=== PATIENT | female | born 1950 | race Caucasian/White ===

== ENCOUNTER 2017-10-30 14:29 | Emergency (ER) | payer MEDICARE, OTHER, SELFPAY | END 2017-10-30 16:00 | disposition home or self-care (01) | PROVIDERS: Emergency Provider Emergency Medicine; Family Provider Emergency Medicine; Visit Provider Emergency Medicine | DX: S39.012A Strain of muscle, fascia and tendon of lower back, initial encounter (principal); W19.XXXA Unspecified fall, initial encounter; Y93.9 Activity, unspecified; Y92.9 Unspecified place or not applicable; Z98.1 Arthrodesis status; M79.7 Fibromyalgia; I10 Essential (primary) hypertension; E78.5 Hyperlipidemia, unspecified; Z79.891 Long term (current) use of opiate analgesic; Z79.899 Other long term (current) drug therapy | CPT/HCPCS: 72110; 99282 ==

== ENCOUNTER 2017-11-01 10:51 | Outpatient (POV) | payer MEDICARE, OTHER, SELFPAY | END 2017-11-01 13:46 | disposition home or self-care (01) | PROVIDERS: Visit Provider Podiatrist | DX: M20.42 Other hammer toe(s) (acquired), left foot (principal); M20.12 Hallux valgus (acquired), left foot; L84 Corns and callosities; M79.675 Pain in left toe(s); M79.674 Pain in right toe(s) | CPT/HCPCS: 11056; 99213 ==

== ENCOUNTER → 2017-12-27 14:35 | Outpatient (CLI) | payer MEDICARE, OTHER, SELFPAY ==
--- NOTE | 2017-12-27 14:45 | XR_ITS ---
XR foot RT min 3V HISTORY: ] Pain, prior foot surgery ITS.REASON: RIGHT FOOT PAIN ORDERING PHYSICIAN: Lisa Mcmahon DPM PATIENT AGE: 67 years COMPARISON: 03/18/2016 FINDINGS: Weightbearing views are obtained. There is been prior fusion of the first metatarsophalangeal joint with a screw present over the distal aspect of the first metatarsal. A small cerclage wire is over the proximal aspect of the proximal phalanx. Hypertrophic changes are present at the first metatarsophalangeal joint and the first interphalangeal joint. Subcortical periarticular cystic changes present at the first interphalangeal joint and has developed in the interval. Hypertrophic changes are also present at the base of the proximal phalanx of digits 3 and 4. Osteoarthritic changes are present at the metatarsal tarsal junction. There is normal alignment. No acute fracture or dislocation evident. Small calcaneal spur noted at 5 mm. Osteoarthritic change third and fourth PIPs . Flexion deformity involves the second through fourth toes. IMPRESSION: Postsurgical changes as described above involving the great toe with prior fusion of the first MTP joint and bony hypertrophic change. Subarticular cystic change now involves the interphalangeal joint of the great toe Hammertoe deformity with degenerative changes
== END ==
PROVIDERS: PCP Physician Assistant; Visit Provider Podiatrist
DX: M79.671 Pain in right foot (principal)
CPT/HCPCS: 73630

== ENCOUNTER 2018-01-25 15:16 | Emergency (ER) | payer MEDICARE, OTHER, SELFPAY ==
[2018-01-25 15:36] VITALS: BP 141/73; PULSE 91; RESP 18; TEMP 36.8; O2SAT 99; BMI 27.2
--- NOTE | 2018-01-25 15:44 | HMH.EDUTC ---
[facility] [place] Disposition Clinical Impression: UTI (urinary tract infection) Qualifiers: Urinary tract infection type: site unspecified Hematuria presence: with hematuria Qualified Code(s): N39.0 - Urinary tract infection, site not specified; R31.9 - Hematuria, unspecified Disposition: Home, Self-Care Condition on Discharge: Good Instructions: Urinary Tract Infection Additional Instructions: *Increase fluids. Water not Soda or Tea *Start antibiotic immediately and be sure to take as ordered for the FULL length of time although you should start to see improvement over the next 48 hours *Pyridium as needed Remember this medication will turn your urine [place]. This is normal but it will stain what ever it gets on *You should not use Pyridium for more than 48 hours. If so , follow up with your primary physician to review urine culture and ensure that antibiotic is adequate for infection *Be SURE to follow up anytime for new or worsening symptoms. AND in 48 hours for urine culture results AND in 10-14 days to repeat UA to ensure infection is resolved and blood no longer present *Be sure to let your PCP know that we sent urine cultures from the [facility] so they can follow up to ensure that you area the on the correct antibiotic Follow up with family doctor in 12-48 hours if no improvement or worsening of symptoms. To the ER if you began having any confusion, fever, chills or any other signs of worsening infection Prescriptions: Phenazopyridine HCl [Pyridium] 200 mg PO TID #6 tab Sulfamethoxazole/Trimethoprim [Bactrim DS tablet] 1 each PO BID #20 tab Referrals: José Miguel Lyons MD [Primary Care Provider] - Time of Disposition: 16:03 Medical Decision Making - Medical Records Medical records reviewed: Yes: I reviewed the patient's medical records. - Chava Inquiry Pt receiving controlled substance: No Chava was queried for this patient: No Vital Signs: 01/25/18 15:36 Temperature 98.2 F Temperature Source Temporal Artery Scan Pulse Rate [Right] 91 H Respiratory Rate 18 Blood Pressure [Right Arm] 141/73 Blood Pressure Mean [Right Arm] 95 Blood Pressure Source [Right Arm] Automatic Cuff Blood Pressure Position [Right Arm] Sitting 02 Sat by Pulse Oximetry 99 Oxygen Delivery Method Room Air - Lab Data Lab results reviewed: Yes: I reviewed the patient's lab results. [facility] [place] HPI - General Stated complaint: Possible UTI Time Seen by Provider: 01/25/18 15:44 Mode of Arrival: Ambulatory Source of Information: Patient Limitations: No Limitations Description of Symptoms (Recalled from Triage Doc. by RN): POSS UTI X2 DAYS HEENT Symptoms (Recalled from RN notes): No Resp Symptoms (Recalled from RN notes): No Skin Symptoms (Recalled from RN notes): No MS Symptoms (Recalled from RN notes): No Functional Status (Recalled from RN notes): N - History of Present Illness Provider Complaint: Patient state that for the last 2 days she has been having urinary freqency, urgency and only going small amounts at a time State that she feels like she has to go to the bathroom then when she goes, she only goes a small amount at a time. State that she has been having burning feeling when she urinates also - Related Data Home Medications Medication Instructions Recorded Confirmed amitriptyline 25 mg tablet 25 mg PO QDAY tab 11/30/17 01/25/18 amlodipine 5 mg tablet 5 mg PO QDAY 11/30/17 01/25/18 lovastatin 10 mg tablet 10 mg PO QDAY 11/30/17 01/25/18 meloxicam 7.5 mg tablet 7.5 mg PO QDAY 11/30/17 01/25/[address] 40 mg granules 40 mg PO QDAY 11/30/17 01/25/18 delayed-release for susp in packet pregabalin 100 mg capsule 100 mg PO QDAY cap 11/30/17 01/25/18 predniSONE [Deltasone 20mg 20 mg PO BID 01/25/18 01/25/18 tablet] Previous Rx's Medication Instructions Recorded hydrocodone 5 mg-acetaminophen 325 1 tab PO BIDP PRN #20 tab 11/30/17 mg tablet Phenazopyridine HCl [Pyridium] 200 mg PO TID #6 tab 01/25/18 Sulfamethoxazol
--- NOTE | 2018-01-25 15:47 | ED_ITS ---
[facility] [place] Disposition Clinical Impression: UTI (urinary tract infection) Qualifiers: Urinary tract infection type: site unspecified Hematuria presence: with hematuria Qualified Code(s): N39.0 - Urinary tract infection, site not specified ; R31.9 - Hematuria, unspecified Disposition: Home, Self-Care Condition on Discharge: Good Instructions: Urinary Tract Infection Additional Instructions: *Increase fluids. Water not Soda or Tea *Start antibiotic immediately and be sure to take as ordered for the FULL length of time although you should start to see improvement over the next 48 hours *Pyridium as needed Remember this medication will turn your urine [place]. This is normal but it will stain what ever it gets on *You should not use Pyridium for more than 48 hours. If so , follow up with your primary physician to review urine culture and ensure that antibiotic is adequate for infection *Be SURE to follow up anytime for new or worsening symptoms. AND in 48 hours for urine culture results AND in 10-14 days to repeat UA to ensure infection is resolved and blood no longer present *Be sure to let your PCP know that we sent urine cultures from the [facility] so they can follow up to ensure that you area the on the correct antibiotic Follow up with family doctor in 12-48 hours if no improvement or worsening of symptoms. To the ER if you began having any confusion, fever, chills or any other signs of worsening infection Prescriptions: Phenazopyridine HCl [Pyridium] 200 mg PO TID #6 tab Sulfamethoxazole/Trimethoprim [Bactrim DS tablet] 1 each PO BID #20 tab Referrals: José Miguel Lyons MD [Primary Care Provider] - Time of Disposition: 16:03 Medical Decision Making - Medical Records Medical records reviewed: Yes: I reviewed the patient's medical records. - Chava Inquiry Pt receiving controlled substance: No Chava was queried for this patient: No Vital Signs: 01/25/18 15:36 Temperature 98.2 F Temperature Source Temporal Artery Scan Pulse Rate [Right] 91 H Respiratory Rate 18 Blood Pressure [Right Arm] 141/73 Blood Pressure Mean [Right Arm] 95 Blood Pressure Source [Right Arm] Automatic Cuff Blood Pressure Position [Right Arm] Sitting 02 Sat by Pulse Oximetry 99 Oxygen Delivery Method Room Air - Lab Data Lab results reviewed: Yes: I reviewed the patient's lab results. [facility] [place] HPI - General Stated complaint: Possible UTI Time Seen by Provider: 01/25/18 15:44 Mode of Arrival: Ambulatory Source of Information: Patient Limitations: No Limitations Description of Symptoms (Recalled from Triage Doc. by RN): POSS UTI X2 DAYS HEENT Symptoms (Recalled from RN notes): No Resp Symptoms (Recalled from RN notes): No Skin Symptoms (Recalled from RN notes): No MS Symptoms (Recalled from RN notes): No Functional Status (Recalled from RN notes): N - History of Present Illness Provider Complaint: Patient state that for the last 2 days she has been having urinary freqency, urgency and only going small amounts at a time State that she feels like she has to go to the bathroom then when she goes, she only goes a small amount at a time. State that she has been having burning feeling when she urinates also - Related Data Home Medications Medication Instructions Recorded Confirmed amitriptyline 25 mg tablet 25 mg PO QDAY tab 11/30/17 01/25/18 amlodipine 5 mg tablet 5 mg PO QDAY 11/30/17 01/25/18 lovastatin 10 mg tablet 10 mg PO QDAY 11/30/17 01/25/18 me
[2018-01-25 16:08] VITALS: BP 141/73; PULSE 91; RESP 18; TEMP 36.8
[2018-01-25 16:30] LABS: Apearance,Urine Clear (Clear); Color,Urine Yellow (Yellow); PH,Urine 5.5 (5.0-8.5)
[2018-01-25 16:31] LABS: Bilirubin,Urine Negative (Negative); Blood, Urine Trace (Negative); Glucose,Urine (UA) Negative (Negative); Ketones,Urine Negative (Negative); Protein,Urine Trace (Negative); Specific Gravity, Urine >= 1.030 (1.005-1.030); UTC Leukocyte Esterase,Urine Negative (Negative); UTC Nitrate,Urine Positive (Negative); Urobilinogen,Urine 0.2 EU/dl (0.2)
== END 2018-01-25 16:15 | disposition home or self-care (01) ==
PROVIDERS: Emergency Provider Nurse Practitioner; PCP Emergency Medicine
DX: N39.0 Urinary tract infection, site not specified (principal); I10 Essential (primary) hypertension; E78.5 Hyperlipidemia, unspecified; M79.7 Fibromyalgia; Z88.8 Allergy status to other drugs, medicaments and biological substances; Z79.899 Other long term (current) drug therapy
CPT/HCPCS: 81003; 87086; 87088; 87186; 99201

== ENCOUNTER → 2018-03-28 15:43 | Outpatient (REF) | payer MEDICARE, OTHER, SELFPAY ==
[2018-03-28 18:08] LABS: Basophils # 0.1 K/mm3 (0-0.2); Basophils % 0.8 % (0.1-2.0); Eosinophils # 0.2 K/mm3 (0.0-0.4); Eosinophils % 2.7 % (0.1-12.0); Hematocrit 37.8 % (37.0-47.0); Hemoglobin 12.4 g/dL (12.2-16.2); Lymphocytes % 33.3 K/mm3 (10-50); Mean Corpuscular HGB Conc 32.8 g/dL (31.8-35.4); Mean Corpuscular Hemoglobin 29.8 pg (27.0-31.2); Mean Corpuscular Volume 90.8 fl (81-99); Mean Platelet Volume 9.5 fl (7.4-10.4); Monocytes # 0.3 K/mm3 (0.1-1.0); Monocytes % 5.5 % (1.7-9.3); Neutrophils # 3.4 K/mm3 (1.8-7.8); Neutrophils % 57.8 % (37.0-80.0); Platelet Count 222 K/mm3 (142-424); Red Blood Count 4.16 M/mm3 (4.20-5.40); Red Cell Distribution Width 12.4 % (11.5-17.5); White Blood Count 5.9 K/mm3 (4.8-10.8)
[2018-03-28 18:26] LABS: Alanine Aminotransferase 20 U/L (12-78); Albumin Level 3.8 gm/dL (3.4-5.0); Albumin/Globulin Ratio 1.1 (1.1-1.8); Alkaline Phosphatase 84 U/L (46-116); Anion Gap 13.2 mEq/L (5-15); Aspartate Amino Transferase 17 U/L (15-37); Bilirubin,Total 0.4 mg/dL (0.2-1.0); Blood Urea Nitrogen 15 mg/dL (7-18); Calcium 9.6 mg/dL (8.5-10.1); Carbon Dioxide 28 mmol/L (21.0-32.0); Chloride 104 mmol/L (98-107); Chol/HDL Ratio 5.8 (1-3.5); Cholesterol 261 mg/dL (140-200); Creatinine,Serum 0.83 mg/dL (0.55-1.02); Estimated Glomerular Filt Rate 69 ml/min (>60); Free T4 (Free Thyroxine) 0.88 ng/dl (0.76-1.46); GFR (African American) 83 ML/MIN (>60); Globulin 3.4 gm/dl (1.3-3.2); Glucose 92 mg/dL (74-106); HDL Cholesterol 45 mg/dL (29-89); LDL Cholesterol 165 mg/dL (0-130); Potassium 4.2 mmoL/L (3.5-5.1); Sodium 141 mmol/L (136-145); Thyroid Stimulating Hormone 1.85 uIU/ml (0.358-3.740); Total Protein,Serum 7.2 gm/dL (6.4-8.2); Triglycerides 254 mg/dL (30-200); VLDL Cholesterol 51 mg/dL (0-40)
[2018-03-30 13:32] LABS: Vitamin B12 209 pg/mL (232-1245); Vitamin D 25 Hydroxy 13.1 ng/mL (30.0-100.0)
== END ==
LOC: LAB 15:43
PROVIDERS: Visit Provider Emergency Medicine
DX: R53.83 Other fatigue (principal); I10 Essential (primary) hypertension
CPT/HCPCS: 80053; 80061; 82607; 82652; 84439; 84443; 85025

== ENCOUNTER → 2018-10-10 18:16 | Outpatient (CLI) | payer MEDICARE, OTHER, SELFPAY ==
[2018-10-10 19:10] LABS: Amphetamine/Metha Screen,Urine Negative ng/mL (<1000); Barbiturates Screen,Urine Negative ng/mL (<200); Benzodiazepines Screen,Urine Negative ng/mL (<200); Cannabinoid Screen,Urine Negative ng/mL (<50); Cocaine Screen,Urine Negative ng/mL (<300); Methadone Screen,Urine Negative ng/mL (<300); Opiate Screen,Urine Negative ng/mL (<300); Phencyclidine Screen,Urine Negative ng/mL (<25)
== END ==
PROVIDERS: Visit Provider Emergency Medicine
DX: Z79.899 Other long term (current) drug therapy (principal)
CPT/HCPCS: 80305

== ENCOUNTER → 2018-11-08 18:51 | Outpatient (CLI) | payer MEDICARE, OTHER, SELFPAY ==
[2018-11-08 21:52] LABS: Amphetamine/Metha Screen,Urine Negative ng/mL (<1000); Barbiturates Screen,Urine Negative ng/mL (<200); Benzodiazepines Screen,Urine Negative ng/mL (<200); Cannabinoid Screen,Urine Negative ng/mL (<50); Cocaine Screen,Urine Negative ng/mL (<300); Methadone Screen,Urine Negative ng/mL (<300); Opiate Screen,Urine Positive ng/mL (<300); Phencyclidine Screen,Urine Negative ng/mL (<25)
== END ==
PROVIDERS: Visit Provider Emergency Medicine
DX: G89.29 Other chronic pain (principal); M25.50 Pain in unspecified joint; M54.9 Dorsalgia, unspecified
CPT/HCPCS: 80305

== ENCOUNTER → 2018-12-05 11:44 | Outpatient (CLI) | payer MEDICARE, OTHER, SELFPAY ==
--- NOTE | 2018-12-05 11:46 | XR_ITS ---
XR foot wt bearing LT 3V HISTORY: ITS.REASON: pain ORDERING PHYSICIAN: Lisa Mcmahon DPM PATIENT AGE: 68 years COMPARISON: 07/12/2018 FINDINGS: Osteoarthritic changes are present with bony hypertrophy at the first metatarsal-phalangeal joint and at the PIP joint of the fifth digit. No fracture or dislocation and no significant change compared to the previous exam. Minimal hypertrophic change at the talonavicular joint dorsally. IMPRESSION: Degenerative changes, no acute finding
--- NOTE | 2018-12-05 11:46 | XR_ITS ---
XR foot wt bearing RT 3V HISTORY: ITS.REASON: pain; previous foot surgery ORDERING PHYSICIAN: Lisa Mcmahon DPM PATIENT AGE: 68 years COMPARISON: 12/27/2017 FINDINGS: There has been prior fusion of the first metatarsophalangeal joint. There are hypertrophic changes at the fusion site. A screw remains in place in the mid to distal aspect of the first metatarsal and there is a small cerclage wire along the proximal phalanx of the great toe. There are osteoarthritic changes of the first interphalangeal joint as well as the third metatarsophalangeal joint and the second through fifth metatarsal tarsal joint. There is good alignment. No fracture or dislocation. No lytic or blastic change. IMPRESSION: Prior fusion of the first MTP joint with hypertrophic and osteoarthritic changes as described above
== END ==
PROVIDERS: PCP Emergency Medicine; Visit Provider Podiatrist
DX: M79.673 Pain in unspecified foot (principal)
CPT/HCPCS: 73630

== ENCOUNTER → 2019-01-13 12:27 | Outpatient (CLI) | payer MEDICARE, OTHER, SELFPAY ==
[2019-01-13 13:37] LABS: Amphetamine/Metha Screen,Urine Negative ng/mL (<1000); Barbiturates Screen,Urine Negative ng/mL (<200); Benzodiazepines Screen,Urine Negative ng/mL (<200); Cannabinoid Screen,Urine Negative ng/mL (<50); Cocaine Screen,Urine Negative ng/mL (<300); Methadone Screen,Urine Negative ng/mL (<300); Opiate Screen,Urine Positive ng/mL (<300); Phencyclidine Screen,Urine Negative ng/mL (<25)
== END ==
LOC: LAB 12:28 → LAB.DROPOF 12:34
PROVIDERS: Visit Provider Emergency Medicine
DX: M25.50 Pain in unspecified joint (principal); Z79.899 Other long term (current) drug therapy
CPT/HCPCS: 80305

== ENCOUNTER → 2019-03-13 13:47 | Outpatient (CLI) | payer MEDICARE, OTHER, SELFPAY ==
[2019-03-13 15:29] LABS: Amphetamine/Metha Screen,Urine Negative ng/mL (<1000); Barbiturates Screen,Urine Negative ng/mL (<200); Benzodiazepines Screen,Urine Negative ng/mL (<200); Cannabinoid Screen,Urine Negative ng/mL (<50); Cocaine Screen,Urine Negative ng/mL (<300); Methadone Screen,Urine Negative ng/mL (<300); Opiate Screen,Urine Positive ng/mL (<300); Phencyclidine Screen,Urine Negative ng/mL (<25)
== END ==
PROVIDERS: Visit Provider Emergency Medicine
DX: Z79.899 Other long term (current) drug therapy (principal)
CPT/HCPCS: 80305

== ENCOUNTER → 2019-05-11 14:33 | Outpatient (CLI) | payer MEDICARE, OTHER, SELFPAY ==
[2019-05-11 16:36] LABS: Amphetamine/Metha Screen,Urine Negative ng/mL (<1000); Barbiturates Screen,Urine Negative ng/mL (<200); Benzodiazepines Screen,Urine Negative ng/mL (<200); Cannabinoid Screen,Urine Negative ng/mL (<50); Cocaine Screen,Urine Negative ng/mL (<300); Methadone Screen,Urine Negative ng/mL (<300); Opiate Screen,Urine Positive ng/mL (<300); Phencyclidine Screen,Urine Negative ng/mL (<25)
== END ==
PROVIDERS: Visit Provider Emergency Medicine
DX: Z79.899 Other long term (current) drug therapy (principal)
CPT/HCPCS: 80305

== ENCOUNTER → 2019-07-02 16:05 | Outpatient (CLI) | payer MEDICARE, OTHER, SELFPAY ==
--- NOTE | 2019-07-02 16:12 | XR_ITS ---
PROCEDURE: XR ELBOW RT MIN 3V CLINICAL INDICATION: Pain Prior fracture and surgery COMPARISON: No exams were available for comparison FINDINGS: There has been extensive surgery at the elbow. There are no previous exams available for comparison. A prosthesis has been inserted into the distal humerus with an articulating arm which extends into the proximal humerus. There is expansion of the proximal humerus with prominent cystic appearing area around the articulating arm. Disorganization and degeneration as well as significant bony debris is present at the elbow joint with periarticular calcification. There is anterior subluxation of the radius. There is also lateral subluxation of the radius and ulna. IMPRESSION: Postsurgical changes of the elbow joint with unusual joint replacement with disorganization displacement and bony debris. There is no normal relationship of the bones. Prominent cystic changes are present around the articulating arm from the prosthesis into the proximal ulna suggesting a loosened prosthesis. Dictated by: Arnel Arrington MD 07/02/2019 19:26 Signed by: <Electronically signed by Arnel Arrington MD in [place]> 07/02/2019 19:26
== END ==
PROVIDERS: PCP Emergency Medicine; Visit Provider Emergency Medicine
DX: M25.521 Pain in right elbow (principal)
CPT/HCPCS: 73080

== ENCOUNTER → 2019-07-25 17:32 | Outpatient (CLI) | payer MEDICARE, OTHER, SELFPAY ==
[2019-07-25 18:46] LABS: Amphetamine/Metha Screen,Urine Negative ng/mL (<1000); Barbiturates Screen,Urine Negative ng/mL (<200); Benzodiazepines Screen,Urine Negative ng/mL (<200); Cannabinoid Screen,Urine Negative ng/mL (<50); Cocaine Screen,Urine Negative ng/mL (<300); Methadone Screen,Urine Negative ng/mL (<300); Opiate Screen,Urine Positive ng/mL (<300); Phencyclidine Screen,Urine Negative ng/mL (<25)
== END ==
PROVIDERS: Visit Provider Emergency Medicine
DX: M25.50 Pain in unspecified joint (principal)
CPT/HCPCS: 80305

== ENCOUNTER → 2019-11-19 18:01 | Outpatient (CLI) | payer MEDICARE, OTHER, SELFPAY ==
[2019-11-19 21:35] LABS: Amphetamine/Metha Screen,Urine Negative ng/mL (<1000); Barbiturates Screen,Urine Negative ng/mL (<200); Benzodiazepines Screen,Urine Negative ng/mL (<200); Cannabinoid Screen,Urine Negative ng/mL (<50); Cocaine Screen,Urine Negative ng/mL (<300); Methadone Screen,Urine Negative ng/mL (<300); Opiate Screen,Urine Positive ng/mL (<300); Phencyclidine Screen,Urine Negative ng/mL (<25)
== END ==
PROVIDERS: Visit Provider Emergency Medicine
DX: M25.50 Pain in unspecified joint (principal)
CPT/HCPCS: 80305

== ENCOUNTER → 2019-12-18 11:07 | Outpatient (POV) | payer MEDICARE, OTHER, SELFPAY | PROVIDERS: Visit Provider Dermatology | DX: Z00.00 Encounter for general adult medical examination without abnormal findings (principal) ==

== ENCOUNTER → 2020-01-11 17:41 | Outpatient (CLI) | payer MEDICARE, OTHER, SELFPAY ==
[2020-01-11 18:17] LABS: Barbiturates Screen,Urine Negative ng/ml (<200); Benzodiazepines Screen,Urine Negative ng/ml (<200)
[2020-01-11 18:18] LABS: Amphetamine/Metha Screen,Urine Negative ng/ml (<1000)
[2020-01-11 18:19] LABS: Cannabinoid Screen,Urine Negative ng/ml (<50); Methadone Screen,Urine Negative ng/ml (<300)
[2020-01-11 18:20] LABS: Cocaine Screen,Urine Negative ng/ml (<300); Opiate Screen,Urine Positive ng/ml (<300)
[2020-01-11 18:21] LABS: Phencyclidine Screen,Urine Negative ng/ml (<25)
== END ==
PROVIDERS: Visit Provider Emergency Medicine
DX: M25.50 Pain in unspecified joint (principal)
CPT/HCPCS: 80305

== ENCOUNTER 2020-08-24 14:07 | Emergency (ER) | payer MEDICARE, OTHER, SELFPAY ==
[2020-08-24 14:26] VITALS: BP 150/75; PULSE 91; RESP 19; TEMP 36.8; O2SAT 99; BMI 28.8
[2020-08-24 14:44] LABS: Apearance,Urine Clear (Clear); Bilirubin,Urine Negative (Negative); Blood, Urine Trace (Negative); Color,Urine Yellow (Yellow); Glucose,Urine (UA) Negative (Negative); Ketones,Urine Negative (Negative); Protein,Urine Negative (Negative)
[2020-08-24 14:45] LABS: UTC Leukocyte Esterase,Urine 1+ (Negative); UTC Nitrate,Urine Positive (Negative); Urobilinogen,Urine 0.2 EU/dl (0.2)
--- NOTE | 2020-08-24 15:06 | HMH.EDUTC ---
[facility] [place] Disposition Clinical Impression: UTI (urinary tract infection) Qualifiers: Urinary tract infection type: site unspecified Hematuria presence: with hematuria Qualified Code(s): N39.0 - Urinary tract infection, site not specified Abdominal pain Qualifiers: Abdominal location: unspecified location Qualified Code(s): R10.9 - Unspecified abdominal pain Disposition: Home, Self-Care Condition on Discharge: Good Instructions: Urinary Tract Infection, DI for Abdominal Pain-Adult Additional Instructions: Drink plenty of fluids. Take tylenol or ibuprofen for pain or fever. Take the medications as directed. Follow up with your regular doctor. GO TO THE ER FOR ANY WORSENING SYMPTOMS Prescriptions: Ciprofloxacin HCl [Cipro 500mg Tab] 500 mg PO BID 10 Days #20 tab Transmission Status: Received by [facility] metroNIDAZOLE [metroNIDAZOLE 500mg Tablet] 500 mg PO TID 10 Days #30 tab Transmission Status: Received by [facility] Promethazine HCl [Phenergan 25mg tab] 25 mg PO Q6H PRN #30 tab PRN Reason: Nausea And Vomiting Transmission Status: Received by [facility] Referrals: José Miguel Lyons MD [Primary Care Provider] - Forms: Work/School Release Time of Disposition: 15:14 Medical Decision Making - Medical Records Medical records reviewed: No: I reviewed the patient's medical records. - Chava Inquiry Pt receiving controlled substance: No Vital Signs: 08/24/20 14:26 08/24/20 15:17 Temperature 98.2 F 98.2 F Temperature Source Oral Pulse Rate 91 H Pulse Rate [Right Brachial] 91 H Respiratory Rate 19 19 Blood Pressure 150/75 H Blood Pressure [Right Arm] 150/75 H Blood Pressure Mean [Right Arm] 100 Blood Pressure Source [Right Arm] Automatic Cuff Blood Pressure Position [Right Arm] Sitting 02 Sat by Pulse Oximetry 99 Oxygen Delivery Method Room Air - Lab Data Lab results reviewed: Yes: I reviewed the patient's lab results. Lab Results 08/24/20 14:25: Urine Color Yellow, Urine Appearance Clear, Urine pH 6.0, Ur Specific [place] 1.020, Urine Protein Negative, Urine Glucose (UA) Negative, Urine Ketones Negative, Urine Blood Trace, Urine Nitrate Positive A, Urine Bilirubin Negative, Urine Urobilinogen 0.2, Ur Leukocyte Esterase 1+ A Orders (Tests/Meds): ED MEDICATIONS Discontinued Medications Generic Name Dose Route Start Last Admin Trade Name Sherif PRN Reason Stop Dose Admin Levofloxacin 500 mg 08/24/20 15:17 08/24/20 15:23 Levofloxacin 500mg Tab PO 08/24/20 15:18 500 mg ONCE ONE Administration Protocol ORDERS Category Date Time Status Urine Culture Stat Micro 08/24/20 14:20 Received Medical Decision Narrative: She refused transfer to the er for further evaluation. [facility] [place] HPI - General Stated complaint: lower belly pain, stomach pain Time Seen by Provider: 08/24/20 14:35 Mode of Arrival: Ambulatory Source of Information: Patient Limitations: No Limitations Description of Symptoms (Recalled from Triage Doc. by RN): PATIENT C/O ABDOMINAL PAIN FROM EPIGASTRIC AREA TO PELVIC AREA SINCE TUESDAY NIGHT. SHE STATES THAT PAIN IS CONSTANT BUT WORSENS WITH BOWEL MOVEMENTS. SHE STATES HER BOWEL MOVEMENT HAVE BEEN FORMED AND NORMAL FOR HER HEENT Symptoms (Recalled from RN notes): No Resp Symptoms (Recalled from RN notes): No Skin Symptoms (Recalled from RN notes): No MS Symptoms (Recalled from RN notes): No Functional Status (Recalled from RN notes): WNL - History of Present Illness Provider Complaint: She c/o intermitent abdominal pain for the past 2 days. She is also having abdominal bloating. She is having some mild dysuria also. - Related Data Home Medications Medication Instructions Recorded Confirmed Amlodipine Besylate [Amlodipine See Rx Instructions .ROUTE .COMPLEX 08/24/20 08/24/20 5mg tab] Pantoprazole Sodium 40 mg PO DAILY 08/24/20 08/24/20 clonazePAM [Clonazep
[2020-08-24 15:17] VITALS: BP 150/75; PULSE 91; RESP 19; TEMP 36.8; O2SAT 99
== END 2020-08-24 15:25 | disposition home or self-care (01) ==
PROVIDERS: Emergency Provider Nurse Practitioner Family; PCP Emergency Medicine
DX: N30.00 Acute cystitis without hematuria (principal)
CPT/HCPCS: G0463; 81003; 87086; 87088; 87186; 99201

== ENCOUNTER → 2021-01-15 09:33 | Outpatient (CLI) | payer MEDICARE, OTHER, SELFPAY ==
--- NOTE | 2021-01-15 09:33 | MM_ITS ---
PROCEDURE: MM DIG SCREENING MAMM BI W/CAD Digital Breast Tomosynthesis Included CLINICAL INDICATION: screening There is no personal or family history of breast cancer. COMPARISON: MG DMSB DIG MAMM-SCREEN EMERY from 12/17/2015 MG DMDBAV DIG MAMM-DX EMERY W ADD VIEWS from 12/26/2015 TECHNIQUE: Standard CC and MLO images and 3D Tomosynthesis was obtained. R2 CAD reviewed. FINDINGS: The breasts are composed primarily of with scattered fibroglandular densities seen throughout both breast. There is minimal linear calcifications central portions of each breast suggestive of secretory disease. There are few additional scattered benign-appearing microcalcifications most seen in the inframammary fold. There is faint arterial calcification in each breast. There is no new or suspicious lesion in either breast no suspicious microcalcifications. IMPRESSION: Fatty type breast parenchyma with no suspicious lesions seen BI-RAD Category: 2 Benign Finding(s) FOLLOW-UP: 1YR 1 Year Follow-up (A letter has been sent to the patient regarding results of the study.) Dictated by: Dr. Michael Montgomery MD 01/20/2021 11:14 Dr. Michael Montgomery MD in [place] 01/20/2021 11:14
== END ==
PROVIDERS: PCP Emergency Medicine; Visit Provider Emergency Medicine
DX: Z12.31 Encounter for screening mammogram for malignant neoplasm of breast (principal)
CPT/HCPCS: 77063; 77067

== ENCOUNTER → 2021-03-04 13:24 | Outpatient (CLI) | payer MEDICARE, OTHER, SELFPAY ==
[2021-03-04 13:34] LABS: Basophils # 0.1 K/mm3 (0-0.2); Basophils % 1.1 % (0.1-2.0); Eosinophils # 0.2 K/mm3 (0.0-0.4); Eosinophils % 3.7 % (0.1-12.0); Hematocrit 40.4 % (37.0-47.0); Hemoglobin 13.2 g/dL (12.2-16.2); Lymphocytes # 1.8 K/mm3 (0.7-4.5); Lymphocytes % 31.9 % (10-50); Mean Corpuscular HGB Conc 32.7 g/dL (31.8-35.4); Mean Corpuscular Hemoglobin 29.4 pg (27.0-31.2); Mean Corpuscular Volume 89.8 fl (81-99); Mean Platelet Volume 10.4 fl (7.4-10.4); Monocytes # 0.4 K/mm3 (0.1-1.0); Monocytes % 6.9 % (1.7-9.3); Neutrophils # 3.2 K/mm3 (1.8-7.8); Neutrophils % 56.4 % (37.0-80.0); Platelet Count 245 K/mm3 (142-424); White Blood Count 5.7 K/mm3 (4.8-10.8)
[2021-03-04 13:57] LABS: Chloride 101 mmol/L (98-107)
[2021-03-04 13:58] LABS: Potassium 4.1 mmoL/L (3.5-5.1); Sodium 139 mmol/L (136-145)
[2021-03-04 14:00] LABS: Alanine Aminotransferase 16 U/L (12-78); Albumin Level 4.7 g/dl (3.5-5.0); Albumin/Globulin Ratio 1.6 (1.1-1.8); Alkaline Phosphatase 80 U/L (38-126); Anion Gap 15.1 mEq/L (5-15); Aspartate Amino Transferase 26 U/L (14-36); Bilirubin,Total 0.6 mg/dl (0.2-1.3); Blood Urea Nitrogen 12 mg/dl (7-17); Carbon Dioxide 27 mmol/L (22.0-30.0); Estimated Glomerular Filt Rate 71 ml/min (>60); GFR (African American) 86 ML/MIN (>60); Globulin 2.9 g/dL (1.3-3.2); Total Protein,Serum 7.6 g/dl (6.3-8.2)
[2021-03-04 14:01] LABS: Calcium 9.6 mg/dl (8.4-10.2); Chol/HDL Ratio 5.8 (1-3.5); Cholesterol 267 mg/dl (140-200); Glucose 82 mg/dl (74-100); HDL Cholesterol 46 mg/dl (40-60); Triglycerides 229 mg/dl (30-150); VLDL Cholesterol 46 mg/dL (0-40)
[2021-03-04 14:12] LABS: Direct LDL Cholesterol 164.42 mg/dL (100-129)
[2021-03-04 14:18] LABS: 25-OH Vitamin D, Total 28.1 ng/mL (30-100)
[2021-03-04 14:19] LABS: Amphetamine/Metha Screen,Urine Negative ng/ml (<1000)
[2021-03-04 14:19] LABS: Free T4 (Free Thyroxine) 1.08 ng/dl (0.78-2.19)
[2021-03-04 14:20] LABS: Barbiturates Screen,Urine Negative ng/ml (<200)
[2021-03-04 14:21] LABS: Benzodiazepines Screen,Urine Negative ng/ml (<200); Methadone Screen,Urine Negative ng/ml (<300)
[2021-03-04 14:22] LABS: Cannabinoid Screen,Urine Negative ng/ml (<50); Cocaine Screen,Urine Negative ng/ml (<300)
[2021-03-04 14:24] LABS: Opiate Screen,Urine Negative ng/ml (<300); Phencyclidine Screen,Urine Negative ng/ml (<25)
== END ==
PROVIDERS: Visit Provider Emergency Medicine
DX: E66.3 Overweight (principal); R53.83 Other fatigue; E55.9 Vitamin D deficiency, unspecified; M25.50 Pain in unspecified joint; Z79.899 Other long term (current) drug therapy; Z68.30 Body mass index [BMI] 30.0-30.9, adult
CPT/HCPCS: 80053; 80061; 80305; 82306; 84439; 84443; 85025

== ENCOUNTER → 2021-04-29 13:49 | Outpatient (CLI) | payer MEDICARE, OTHER, SELFPAY ==
[2021-04-29 14:26] LABS: Amphetamine/Metha Screen,Urine Negative ng/ml (<1000)
[2021-04-29 14:27] LABS: Barbiturates Screen,Urine Negative ng/ml (<200)
[2021-04-29 14:29] LABS: Benzodiazepines Screen,Urine Negative ng/ml (<200); Cannabinoid Screen,Urine Negative ng/ml (<50)
[2021-04-29 14:30] LABS: Cocaine Screen,Urine Negative ng/ml (<300); Methadone Screen,Urine Negative ng/ml (<300)
[2021-04-29 14:32] LABS: Opiate Screen,Urine Positive ng/ml (<300)
[2021-04-29 14:33] LABS: Phencyclidine Screen,Urine Negative ng/ml (<25)
== END ==
PROVIDERS: Visit Provider Emergency Medicine
DX: Z79.899 Other long term (current) drug therapy (principal)
CPT/HCPCS: 80305

== ENCOUNTER 2021-06-07 15:35 | Emergency (ER) | payer MEDICARE, OTHER, SELFPAY ==
--- NOTE | 2021-06-07 16:48 | HMH.EDUTC ---
[facility] [place] Clinical Impression: Bilateral otitis media Qualifiers: Otitis media type: suppurative Chronicity: acute Recurrence: non-recurrent Spontaneous tympanic membrane rupture: without spontaneous rupture Qualified Code(s): H66.003 - Acute suppurative otitis media without spontaneous rupture of ear drum, bilateral Disposition: Home, Self-Care Condition on Discharge: Good Instructions: DI for Otitis Media (Middle Ear Infection)-Child Prescriptions: Amoxicillin/Potassium Clav [Augmentin 875-125 Tablet] 1 tab PO Q12H 10 Days #20 tab Transmission Status: Pending to [facility] Referrals: José Miguel Lyons MD [Primary Care Provider] - Time of Disposition: 16:53 Medical Decision Making - Chava Inquiry Pt receiving controlled substance: No [facility] [place] - General Stated complaint: left ear ache Time Seen by Provider: 06/07/21 16:48 - History of Present Illness Provider Complaint: Left ear pain X 2 days. No fever. Hurts worse when she bends over. Onset (ago): day(s) (2) Relieving factors: none Exacerbating factors: none Associated symptoms: denies other symptoms Treatments prior to arrival: none - Related Data Home Medications Medication Instructions Recorded Confirmed Pantoprazole Sodium 40 mg PO DAILY 08/24/20 06/03/21 cholecalciferol (vitamin D3) 1,250 1,250 mcg PO WEEKLY 03/04/21 06/03/21 mcg (50,000 unit) capsule Previous Rx's Medication Instructions Recorded atorvastatin 10 mg tablet 10 mg PO HS #90 tab 03/05/21 ergocalciferol (vitamin D2) 1,250 1,250 mcg PO WEEKLY #13 cap 03/05/21 mcg (50,000 unit) capsule clonazepam 0.5 mg tablet 0.5 mg PO BID #60 tab 04/29/21 hydrocodone 7.5 mg-acetaminophen 1 tab PO TID PRN #90 tab 04/29/21 325 mg tablet amlodipine 5 mg tablet 5 mg PO DAILY #30 tab 05/19/21 Amoxicillin/Potassium Clav 1 tab PO Q12H 10 Days #20 tab 06/07/21 [Augmentin 875-125 Tablet] Allergies Allergy/AdvReac Type Severity Reaction Status Date / Time lisinopril Allergy Severe Anaphylaxis Verified 06/03/21 08:38 sulfamethoxazole AdvReac Severe Hives Verified 06/03/21 08:38 [From Bactrim] trimethoprim [From Bactrim] AdvReac Severe Hives Verified 06/03/21 08:38 [facility] History - Hepatitis A Screen Attestation statement:: This patient has been screened for Hepatitis A risk factors. I have reviewed the patient's past medical history: Yes Medical History: Reports:: Anxiety, Hyperlipidemia, Hypertension Denies:: Diabetes Mellitus Type 1, Diabetes Mellitus Type 2 Other Medical History: Reports: Arthritis, Fibromyalgia Comment: Rt arm Fracture Laterality Cases: Left: Arthroscopy Shoulder, Right: Other Other Surgeries: Yes: No Previous Surgery, Cholecystectomy, Colonoscopy, Hysterectomy-Total, Other Amputation: No Fractures: No Comment: Rt. Elbow replacement, Bunion Rt Ft (1997), Rotator Cuff, Colonoscopy, Back surgery - Social History Smoking Status: Never smoker Alcohol Intake: never Alcohol Intake Frequency:: other Substance Use Type: denies use Occupational Status: other Housing: house Household Members: family - Psychiatric History Pschychiatric History:: Reports:: Anxiety Family Hx:: Heart Attack, Cancer, Hypertension ROS Obtained: Yes All systems reviewed & no additional complaints - ENT Ears, Nose, Mouth, and Throat: Reports otalgia Physical Exam - General General appearance: alert, in no apparent distress - Head Head exam: normocephalic - Eye Eye exam: Present: PERRL - ENT ENT exam: Present: normal oropharynx, normal external ear exam - Expanded ENT Exam TM/Canal exam: Bilateral TM: erythema Nose exam: Absent: sinus tenderness Teeth exam: Present: normal inspection Throat exam: Present: normal inspection - Neck Neck exam: Absent: lymphadenopathy - Chest Chest inspection: Present: normal inspection - Respiratory Respiratory exam: Present: normal lung sounds bilaterally - Cardiovascular Cardiovascular
[2021-06-07 16:53] VITALS: BP 129/72; PULSE 90; RESP 16; TEMP 36.8; O2SAT 97; BMI 29.3
[2021-06-07 17:00] VITALS: BP 145/71; PULSE 87; RESP 16; TEMP 36.9; O2SAT 98
== END 2021-06-07 17:22 | disposition home or self-care (01) ==
LOC: ER 15:43 → UTC 15:44
PROVIDERS: Emergency Provider Physician Assistant; PCP Emergency Medicine
DX: H66.003 Acute suppurative otitis media without spontaneous rupture of ear drum, bilateral (principal); I10 Essential (primary) hypertension; E78.5 Hyperlipidemia, unspecified; F41.9 Anxiety disorder, unspecified; M79.7 Fibromyalgia; Z79.899 Other long term (current) drug therapy
CPT/HCPCS: G0463; 99202

== ENCOUNTER → 2021-06-26 14:14 | Outpatient (CLI) | payer MEDICARE, OTHER, SELFPAY ==
[2021-06-26 14:36] LABS: Barbiturates Screen,Urine Negative ng/ml (<200)
[2021-06-26 14:37] LABS: Benzodiazepines Screen,Urine Negative ng/ml (<200)
[2021-06-26 14:38] LABS: Amphetamine/Metha Screen,Urine Negative ng/ml (<1000); Methadone Screen,Urine Negative ng/ml (<300)
[2021-06-26 14:39] LABS: Cannabinoid Screen,Urine Negative ng/ml (<50)
[2021-06-26 14:40] LABS: Cocaine Screen,Urine Negative ng/ml (<300); Opiate Screen,Urine Positive ng/ml (<300)
[2021-06-26 14:41] LABS: Phencyclidine Screen,Urine Negative ng/ml (<25)
== END ==
PROVIDERS: Visit Provider Emergency Medicine
DX: Z79.899 Other long term (current) drug therapy (principal)
CPT/HCPCS: 80305

== ENCOUNTER → 2021-06-26 15:58 | Outpatient (CLI) | payer MEDICARE, OTHER, SELFPAY ==
--- NOTE | 2021-06-26 15:59 | MR_ITS ---
PROCEDURE: MR LUMBAR SPINE WO CON CLINICAL INDICATION: JOSE J Right leg and buttock pain tingling and numbness. History of lumbar surgery COMPARISON: MR COMPUTER SERVICE TECHNICIAN/O MRI-L-SPINE W/O from 11/11/2015 MR COMPUTER SERVICE TECHNICIAN/O MRI-L-SPINE W/O from 01/07/2017 TECHNIQUE: Standard multiplanar multiecho sequences are performed without contrast. 3-D MIP and myelographic images are also rendered and reviewed FINDINGS: There is normal alignment. Spinal cord ends at the L1-L2 level. T10-T11: Degenerative disc disease with a small central/right paracentral disc protrusion causing mild compression upon the anterior and right aspect of the cord also causing right lateral recess narrowing.. This area was not included on the prior MRI T11-T12: Degenerative disc disease with minimal right paracentral disc protrusion slightly more prominent causing mild right lateral recess narrowing. T12-L1: Tiny left paracentral disc protrusion without impingement not significantly changed. L1-L2: Unremarkable. L2-L3: Degenerative disc disease with bulging disc and a small right paracentral disc protrusion causing prominent right lateral recess narrowing. This is impinging upon the right L3 nerve root. The disc protrusion has enlarged compared to the previous exam with increasing right lateral recess narrowing. Facet and ligamentum hypertrophy also noted at this level with mild bilateral foraminal narrowing. L3-L4: Degenerative disc disease. There is severe facet hypertrophic change with bilateral lateral recess narrowing with severe bilateral foraminal narrowing. There is transverse narrowing of the canal at 10 mm. The hypertrophied facets abuts the L4 nerve roots laterally. The facet hypertrophy has increased and the lateral recess and foraminal narrowing has increased from the previous study. L4-5: Inter pedicular screws are present at L4 and L5. Status post laminectomy. Degenerative disc disease. 2 mm anterolisthesis of L4. Mild left foraminal narrowing. Not significantly changed. L5-S1: Degenerative disc disease with some small central disc protrusion not significantly changed. Facet and ligamentum hypertrophy No extruded herniated disc. No acute fracture. No evidence of discitis. Type 2 endplate changes are present at L4-5. IMPRESSION: Abnormal MRI of the lumbar spine with multilevel lumbar spondylosis and postsurgical changes. There are areas of neural impingement from facet and ligamentum hypertrophy and protruding discs. Please see above for detailed description at each level. No extruded herniated disc apparent. Dictated by: Arnel Arrington MD 06/26/2021 17:12 Arnel Arrington MD in [place] 06/26/2021 17:12
== END ==
PROVIDERS: PCP Emergency Medicine; Visit Provider Emergency Medicine
DX: M48.062 Spinal stenosis, lumbar region with neurogenic claudication (principal); M54.16 Radiculopathy, lumbar region; R68.89 Other general symptoms and signs
CPT/HCPCS: 72148; 76376; 80305

== ENCOUNTER 2021-08-07 10:00 | Outpatient (RCR) | payer MEDICARE, OTHER, SELFPAY | END 2021-08-07 10:05 | disposition home or self-care (01) | LOC: PT 10:00 | PROVIDERS: PCP Emergency Medicine; Visit Provider Clinical Nurse Specialist Family Health | DX: M47.816 Spondylosis without myelopathy or radiculopathy, lumbar region (principal) | CPT/HCPCS: 97014; 97035; 97110; 97163; G0283 ==

== ENCOUNTER → 2021-08-18 13:20 | Outpatient (CLI) | payer MEDICARE, OTHER, SELFPAY | PROVIDERS: PCP Emergency Medicine; Visit Provider Nurse Practitioner | DX: Z20.822 Contact with and (suspected) exposure to COVID-19 (principal) | CPT/HCPCS: C9803; U0003; U0005 ==

== ENCOUNTER → 2021-09-14 15:31 | Outpatient (CLI) | payer MEDICARE, OTHER, SELFPAY | PROVIDERS: PCP Emergency Medicine; Visit Provider Nurse Practitioner | DX: Z20.822 Contact with and (suspected) exposure to COVID-19 (principal); U07.1 COVID-19 | CPT/HCPCS: C9803; U0003; U0005 ==

== ENCOUNTER 2021-09-22 07:25 | Emergency (ER) | payer MEDICARE, OTHER, SELFPAY ==
[2021-09-22 07:29] VITALS: BP 148/85; PULSE 95; RESP 18; TEMP 36.9; O2SAT 96; BMI 29.0
--- NOTE | 2021-09-22 07:52 | HMH.EDNVD ---
ED Disposition Clinical Impression: COVID-19, Gastroenteritis, Hypokalemia Disposition: Home, Self-Care Condition on Discharge: Good Instructions: DI for Nausea -- Adult, DI for COVID-19 (Suspected or Confirmed ) Additional Instructions: fluiids and see pcp for follow up Prescriptions: ondansetron HCL [Zofran 4mg Tab] 4 mg PO TID #30 tab Transmission Status: Pending to [facility] Referrals: José Miguel Lyons MD [Primary Care Provider] - - Critical Care Critical Care Time: No Attestation: On 09/22/21, the high probability of a clinically significant, sudden or life threatening deterioration of the following system(s) required my full and direct attention, intervention and personal management. The time I documented below is in addition to time spent performing reported procedures but includes the following listed in this critical care notation. Medical Decision Making - Medical Records Medical records reviewed: Yes: I reviewed the patient's medical records. - Chava Inquiry Pt receiving controlled substance: No Vital Signs: 09/22/21 07:29 Temperature 98.4 F Temperature Source Oral Pulse Rate [Right Radial] 95 H Respiratory Rate 18 Blood Pressure [Right Arm] 148/85 H Blood Pressure Mean [Right Arm] 106 Blood Pressure Source [Right Arm] Automatic Cuff Blood Pressure Position [Right Arm] Sitting 02 Sat by Pulse Oximetry 96 Oxygen Delivery Method Room Air - Lab Data Lab results reviewed: Yes: I reviewed the patient's lab results. Lab Results 09/22/21 07:50: WBC 3.4 L, RBC 4.42, Hgb 13.6, Hct 41.1, MCV 92.9, MCH 30.7, MCHC 33.0, RDW 13.2, Plt Count 169, MPV 11.0 H, Neut % (Auto) 71.6, Lymph % (Auto) 20.1, Culberson % (Auto) 6.3, Eos % (Auto) 0.9, Baso % (Auto) 1.1, Neut # (Auto) 2.5, Lymph # (Auto) 0.7, [place]berson # (Auto) 0.2, Eos # (Auto) 0.0, Baso # (Auto) 0.0 09/22/21 07:50: Sodium 136, Potassium 3.1 L, Chloride 101, Carbon Dioxide 29, Anion Gap 9.1, BUN 13, Creatinine 0.60, Estimated Creat Clear 67, Estimated GFR 99, Est GFR ( Amer) 120, Glucose 109 H, Calcium 8.7, Total Bilirubin 0.5, AST 42 H, ALT 26, Alkaline Phosphatase 83, Total Protein 7.1, Albumin 4.0, Globulin 3.1, Albumin/Globulin Ratio 1.3 Result diagrams: 09/22/21 07:50 09/22/21 07:50 Orders (Tests/Meds): ED MEDICATIONS Discontinued Medications Generic Name Dose Route Start Last Admin Trade Name Freq PRN Reason Stop Dose Admin Sodium Chloride 1,000 mls @ 999 mls/hr 09/22/21 08:00 09/22/21 07:57 Sod Chlor 0.9% 1000ml Bag IV 09/22/21 09:00 999 mls/hr .Q1H1M SLOAN Administration ORDERS Category Date Time Status Urinalysis and Microscopic Stat Lab 09/22/21 08:02 Ordered - Radiology Data #1 Image(s): Chest Image Reviewed: Yes I have reviewed radiologist's interpretation Preliminary Findings: Abnormal Medical Decision Narrative: improved aftrt ivf Nausea/Vomiting/Diarrhea HPI - General Chief complaint: Nausea/Vomiting/Diarrhea Stated complaint: covid pos 09/15 feel dehydrated Time Seen by Provider: 09/22/21 07:45 Mode of Arrival: Ambulatory Source of Information: Patient, Medical Record Limitations: No Limitations Description of Symptoms (Recalled from ER Triage Doc. by RN): Pt reports she feels dehydrated. Pt states she is on day 9 since testing positive for covid. Pt reports she has had frequent episodes of vomitting and diarrhea. - History of Present Illness HPI Narrative: has covid-19 with dec po intake MD complaint: nausea, vomiting Onset (ago): day(s) Associated Abdominal Pain: No Severity: moderate Associated symptoms: denies other symptoms - Related Data Home Medications Medication Instructions Recorded Confirmed Amlodipine Besylate 5 mg PO DAILY 09/22/21 09/22/21 Atorvastatin Calcium [Lipitor 10mg 10 mg PO DAILY 09/22/21 09/22/21 Tab] Previous Rx's Medication Instructions Recorded ergocalciferol (vitamin D2) 1,250 1,250 mcg PO WEEKLY #1
[2021-09-22 07:53] LABS: Basophils % 1.1 % (0.1-2.0); Eosinophils % 0.9 % (0.1-12.0); Hematocrit 41.1 % (37.0-47.0); Hemoglobin 13.6 g/dL (12.2-16.2); Lymphocytes # 0.7 K/mm3 (0.7-4.5); Lymphocytes % 20.1 % (10-50); Mean Corpuscular Hemoglobin 30.7 pg (27.0-31.2); Mean Corpuscular Volume 92.9 fl (81-99); Monocytes # 0.2 K/mm3 (0.1-1.0); Monocytes % 6.3 % (1.7-9.3); Neutrophils # 2.5 K/mm3 (1.8-7.8); Neutrophils % 71.6 % (37.0-80.0); Platelet Count 169 K/mm3 (142-424); Red Blood Count 4.42 M/mm3 (4.20-5.40); Red Cell Distribution Width 13.2 % (11.5-17.5); White Blood Count 3.4 K/mm3 (4.8-10.8)
--- NOTE | 2021-09-22 07:53 | XR_ITS ---
PROCEDURE: XR CHEST PORTABLE CLINICAL HISTORY: sob COMPARISON: CR CXR CHEST(2 VIEWS-NOT PORTABLE) from 10/02/2017 CR CXR CHEST(2 VIEWS-NOT PORTABLE) from 10/11/2017 CR XR CHEST 2V from 08/04/2019 FINDINGS: The cardiomediastinal silhouette and pulmonary vascularity are within normal limits. The lungs are clear without infiltrates, suspicious nodules, or pleural effusions. Right pericardial density is once again noted may be due to pericardial fat pad or pericardial cyst. CT chest may further delineate if clinically desired. No acute bony findings. IMPRESSION: No change with no acute finding. Dictated by: Arnel Arrington MD 09/22/2021 09:38 Arnel Arrington MD in [place] 09/22/2021 09:38
[2021-09-22 08:02] LABS: Alanine Aminotransferase 26 U/L (12-78); Albumin/Globulin Ratio 1.3 (1.1-1.8); Alkaline Phosphatase 83 U/L (38-126); Anion Gap 9.1 mEq/L (5-15); Aspartate Amino Transferase 42 U/L (14-36); Bilirubin,Total 0.5 mg/dl (0.2-1.3); Blood Urea Nitrogen 13 mg/dl (7-17); Calcium 8.7 mg/dl (8.4-10.2); Carbon Dioxide 29 mmol/L (22.0-30.0); Chloride 101 mmol/L (98-107); Creatinine Clearance Estimated 67 mL/min (50-200); Estimated Glomerular Filt Rate 99 ml/min (>60); GFR (African American) 120 ML/MIN (>60); Globulin 3.1 g/dL (1.3-3.2); Glucose 109 mg/dl (74-100); Potassium 3.1 mmoL/L (3.5-5.1); Sodium 136 mmol/L (136-145); Total Protein,Serum 7.1 g/dl (6.3-8.2)
[2021-09-22 12:09] VITALS: BP 145/78; PULSE 78; RESP 16; TEMP 36.6; O2SAT 98
== END 2021-09-22 12:10 | disposition home or self-care (01) ==
PROVIDERS: Emergency Provider Emergency Medicine; PCP Emergency Medicine
DX: U07.1 COVID-19 (principal); K52.9 Noninfective gastroenteritis and colitis, unspecified; I10 Essential (primary) hypertension; E78.5 Hyperlipidemia, unspecified; E87.6 Hypokalemia
CPT/HCPCS: 71045; 80053; 85025; 96365; 99282

== ENCOUNTER → 2022-01-12 14:48 | Outpatient (CLI) | payer MEDICARE, OTHER, SELFPAY ==
[2022-01-12 15:07] LABS: Barbiturates Screen,Urine Negative ng/ml (<200); Benzodiazepines Screen,Urine Negative ng/ml (<200)
[2022-01-12 15:08] LABS: Amphetamine/Metha Screen,Urine Negative ng/ml (<1000)
[2022-01-12 15:09] LABS: Cannabinoid Screen,Urine Negative ng/ml (<50); Cocaine Screen,Urine Negative ng/ml (<300)
[2022-01-12 15:10] LABS: Methadone Screen,Urine Negative ng/ml (<300)
[2022-01-12 15:11] LABS: Opiate Screen,Urine Positive ng/ml (<300); Phencyclidine Screen,Urine Negative ng/ml (<25)
== END ==
PROVIDERS: Visit Provider Emergency Medicine
DX: Z79.899 Other long term (current) drug therapy (principal)
CPT/HCPCS: 80305

== ENCOUNTER 2022-04-17 19:30 | Emergency (ER) | payer MEDICARE, OTHER, SELFPAY ==
[2022-04-17 19:31] VITALS: BP 132/65; PULSE 81; RESP 18; TEMP 36.7; O2SAT 99; BMI 27.6
[2022-04-17 20:00] VITALS: BP 132/65; PULSE 85; RESP 16; O2SAT 99
[2022-04-17 20:30] VITALS: BP 133/65; PULSE 75; RESP 16; O2SAT 99
--- NOTE | 2022-04-17 20:36 | HMH.EDGENADL ---
ED Disposition Clinical Impression: Lumbar radicular pain Knee pain, acute Qualifiers: Laterality: right Qualified Code(s): M25.561 - Pain in right knee Disposition: Home, Self-Care Condition on Discharge: Good Instructions: DI for Lumbar Radiculopathy Additional Instructions: call or see pcp tuesday Prescriptions: predniSONE [Prednisone 20mg Tab] 20 mg PO BID #10 tab [facility]: [id number] Referrals: José Miguel Lyons MD [Primary Care Provider] - - Critical Care Critical Care Time: No Attestation: On 04/17/22, the high probability of a clinically significant, sudden or life threatening deterioration of the following system(s) required my full and direct attention, intervention and personal management. The time I documented below is in addition to time spent performing reported procedures but includes the following listed in this critical care notation. Medical Decision Making - Medical Records Medical records reviewed: Yes: I reviewed the patient's medical records. - Chava Inquiry Pt receiving controlled substance: No Vital Signs: 04/17/22 19:31 Temperature 98.1 F Temperature Source Oral Pulse Rate [Left Radial] 81 Respiratory Rate 18 Blood Pressure [Right Arm] 132/65 Blood Pressure Mean [Right Arm] 87 Blood Pressure Source [Right Arm] Automatic Cuff Blood Pressure Position [Right Arm] Sitting 02 Sat by Pulse Oximetry 99 Oxygen Delivery Method Room Air - Lab Data Lab results reviewed: Yes: I reviewed the patient's lab results. Orders (Tests/Meds): ED MEDICATIONS Discontinued Medications Generic Name Dose Route Start Last Admin Trade Name Bariq PRN Reason Stop Dose Admin Hydromorphone HCl 1 mg 04/17/22 20:17 04/17/22 20:25 Hydromorphone 2mg/Ml Syringe IV 04/17/22 20:18 1 mg ONCE ONE Administration Methylprednisolone Sodium Succinate 125 mg 04/17/22 20:17 04/17/22 20:24 Methylprednisolone Sod Succ 125mg Vial IV 04/17/22 20:18 125 mg ONCE ONE Administration Promethazine HCl 12.5 mg 04/17/22 20:16 04/17/22 20:24 Promethazine Hcl 25mg/Ml 1ml Vial IV 04/17/22 20:17 12.5 mg ONCE ONE Administration Sodium Chloride 25 ml 04/17/22 20:16 06/04/22 20:25 Sodium Chloride 0.9% 25ml Bag IV 04/17/22 20:17 25 ml ONCE ONE Administration Medical Decision Narrative: acute l/s radicular pain General Adult HPI - General Chief complaint: PAIN Stated complaint: sciatica pain Time Seen by Provider: 04/17/22 20:36 Mode of Arrival: Ambulatory Source of Information: Patient, Medical Record Limitations: No Limitations Description of Symptoms (Recalled from ER Triage Doc. by RN): LOW BACK PAIN WITH RADIATION DOWN RIGHT LEG. PT REPORTS THAT SHE HAS ALREADY TAKEN HER AT HOME MEDS WITHOUT RELIEF. PT STATES THIS PAIN IS SAME WHEN SHE HAS HAD PREVIOUS FLARE UPS WITH HER BACK. PT RATES PAIN 08/23- REPORTS CONSTANT DULL ACHE WITH SHARP SHOOTING PAINS - History of Present Illness HPI narrative: this is an acute exacerbation of l/s radicular pain with also rt knee pain w/o rash or fever and no trauma or cauda equina sx - pt has been compliant with meds - Onset (ago): day(s) Location: back, lower extremity Radiation: extremity Severity: severe Consistency: intermittent Associated symptoms: denies other symptoms - Related Data Previous Rx's Medication Instructions Recorded pantoprazole 40 mg tablet,delayed 40 mg PO DAILY #90 tab 06/26/21 release ergocalciferol (vitamin D2) 1,250 1,250 mcg PO WEEKLY #13 cap 11/17/21 mcg (50,000 unit) capsule urea 40 % topical cream 1 applic TOPICAL BID #28 g 12/16/21 amlodipine 5 mg tablet See Rx Instructions .ROUTE 01/12/22 .COMPLEX #90 tab clonazepam 0.5 mg tablet 0.5 mg PO BID #60 tab 03/10/22 gabapentin 100 mg capsule 100 mg PO TID #90 cap 03/10/22 hydrocodone 10 mg-acetaminophen 1 tab PO QID #120 tab 03/10/22 325 mg tablet atorvastatin 10 mg tablet See Rx Instru
[2022-04-17 21:00] VITALS: BP 136/68; PULSE 72; RESP 17; O2SAT 96
[2022-04-17 21:12] VITALS: BP 123/65; PULSE 66; RESP 16; O2SAT 96
[2022-04-17 21:15] VITALS: BP 123/65; PULSE 66; RESP 16; TEMP 37.1; O2SAT 98
== END 2022-04-17 21:24 | disposition home or self-care (01) ==
PROVIDERS: Emergency Provider Emergency Medicine; PCP Emergency Medicine
DX: M54.16 Radiculopathy, lumbar region (principal); M25.561 Pain in right knee; F41.9 Anxiety disorder, unspecified; E78.5 Hyperlipidemia, unspecified; I10 Essential (primary) hypertension; M19.90 Unspecified osteoarthritis, unspecified site; M79.7 Fibromyalgia; Z87.39 Personal history of other diseases of the musculoskeletal system and connective tissue; Z88.2 Allergy status to sulfonamides; Z88.8 Allergy status to other drugs, medicaments and biological substances
CPT/HCPCS: 96374; 96375; 96376; 99284; J2405

== ENCOUNTER → 2022-07-23 08:20 | Outpatient (CLI) | payer MEDICARE, OTHER, SELFPAY ==
--- NOTE | 2022-07-23 08:23 | XR_ITS ---
FINAL REPORT CLINICAL HISTORY: knee pain FINDINGS: 4 views of the right knee were obtained. There is no acute fracture or dislocation. There are moderate degenerative changes. There is medial and patellofemoral joint space narrowing. There are chronic calcifications anterior to the knee. A small joint effusion is present. IMPRESSION: Moderate degenerative change with small joint effusion. Reviewed, Interpreted and Dictated by Manuel Apodaca III, MD Transcribed by Ivan Galdamez Authenticated and [facility]
== END ==
PROVIDERS: PCP Emergency Medicine; Visit Provider Orthopaedic Surgery
DX: M25.561 Pain in right knee (principal)
CPT/HCPCS: 73564

== ENCOUNTER 2022-09-16 09:18 | Emergency (ER) | payer MEDICARE, OTHER, SELFPAY ==
[2022-09-16 09:30] VITALS: BP 145/76; PULSE 85; RESP 20; TEMP 36.5; O2SAT 99; BMI 29.0
[2022-09-16 09:56] LABS: UTC Influenza A Antigen Negative (Negative)
[2022-09-16 09:57] LABS: UTC Influenza B Antigen Negative (Negative)
--- NOTE | 2022-09-16 10:23 | EXP.UTC ---
Discharge Plan Disposition Patient Disposition: Home, Self-Care Condition: Good Prescriptions Prescriptions: New amoxicillin-pot clavulanate 875-125 mg Tablet 1 tab PO Q12H 7 Days Qty: 14 0RF prednisone 10 mg tablet 10 mg PO BID Qty: 10 0RF No Action pantoprazole 40 mg tablet,delayed release (DR/EC) 40 mg PO DAILY Qty: 90 0RF ergocalciferol (vitamin D2) 1,250 mcg (50,000 unit) capsule 1,250 mcg PO WEEKLY Qty: 13 2RF clonazepam 0.5 mg tablet 0.5 mg PO BID Qty: 60 1RF gabapentin 300 mg capsule 300 mg PO TID Qty: 90 1RF hydrocodone-acetaminophen 10-325 mg tablet 1 tab PO QID Qty: 120 0RF amlodipine 5 mg tablet See Rx Instructions .ROUTE .COMPLEX Qty: 30 3RF Dose Instruction: TAKE ONE TABLET BY MOUTH ONCE A DAY Rx Instructions: TAKE ONE TABLET BY MOUTH ONCE A DAY cholecalciferol (vitamin D3) 25 mcg (1,000 unit) tablet See Rx Instructions .ROUTE .COMPLEX Qty: 30 0RF Dose Instruction: TAKE ONE TABLET BY MOUTH ONCE A DAY Rx Instructions: TAKE ONE TABLET BY MOUTH ONCE A DAY atorvastatin 10 mg tablet See Rx Instructions .ROUTE .COMPLEX Qty: 30 0RF Dose Instruction: TAKE ONE TABLET BY MOUTH AT BEDTIME Rx Instructions: TAKE ONE TABLET BY MOUTH AT BEDTIME Referrals Follow up/Referrals: José Miguel Lyons MD [Primary Care Provider] - See instructions Activity Restrictions/Add. Instructions Additional Instructions/Restrictions: *Monitor Temp, Over the counter Motrin or Tylenol as directed/as needed Tylenol every 4 hours and Motrin every 6 hours (as long as your family doctor has told you that you can take it) for fever or pain. and straight to ER if unable to lower temp less than 101.0 after medication given *Warm salt water gargles may help to soothe the throat *Throat Lozenges? *Warm fluids like tea with honey may help to soothe the throat? *Sleep elevated *Humidifier/Vaporizer Follow up IMMEDIATELY for new or worsening symptoms or no Noticeable improvement over the next 48-72 hours. 911 for difficulty breathing or swallowing You were tested for today for COVID19 your test result should be back in the next 24-48 hours, you may check your results on the [facility] My Health Portal Clinical Impressions Clinical Impression: Sinusitis Instructions Patient Instructions: DI for Sinusitis, Sinusitis Discharge ED Provider: Belkis Johnson [facility] HPI General Stated complaint: BLANCO, cough, body aches, runny nose, dizzy Mode of Arrival: Ambulatory Source of Information: Patient Limitations: No Limitations Time Seen by Provider: 09/16/22 10:23 Description of Symptoms (Recalled from Triage Doc. by RN): PATIENT C/O CHILLS, RUNNY NOSE, BODY ACHES, HEADACHE, AND DIZZINESS THAT STARTED TUESDAY HEENT Symptoms (Recalled from RN notes): Yes Resp Symptoms (Recalled from RN notes): No Skin Symptoms (Recalled from RN notes): No MS Symptoms (Recalled from RN notes): No Functional Status (Recalled from RN notes): WNL History of Present Illness Provider Complaint: Patient states that she has been having sinus pain and pressure for about a week and started on Tuesday with body aches, chills, headache and yesterday felt a little dizzy when she would get up but not today States that she was worried she had a sinus infection or the flu Related Data Previous Rx's Medication Instructions Recorded pantoprazole 40 mg tablet,delayed 40 mg PO DAILY GERD #90 tabs 06/26/21 release ergocalciferol (vitamin D2) 1,250 1,250 mcg PO WEEKLY #13 caps 11/17/21 mcg (50,000 unit) capsule amlodipine 5 mg tablet See Rx Instructions .Route 05/13/22 .COMPLEX #30 tabs clonazepam 0.5 mg tablet 0.5 mg PO BID Anxiety #60 tabs 08/24/22 gabapentin 300 mg capsule 300 mg PO TID #90 caps 08/24/22 hydrocodone 10 mg-acetaminophen 1 tab PO QID #120 tabs 08/24/22 325 mg tablet atorvastatin 10 mg tablet See Rx Instructions .Route 09/06/22 .COMPLEX #30 tabs
[2022-09-16 10:35] VITALS: BP 145/76; PULSE 85; RESP 20; TEMP 36.5; O2SAT 99
[2022-09-16 10:36] LABS: Adenovirus,PCR Not Detected (NotDetected); Bordetella Pertussis Not Detected (NotDetected); Chlamydophila Pneumoniae, PCR Not Detected (NotDetected); Coronavirus 19, PCR Not Detected (NotDetected); Coronavirus 229E Not Detected (NotDetected); Coronavirus NL63 Not Detected (NotDetected); Coronavirus OC43 Not Detected (NotDetected); Coronovirus HKU1,PCR Not Detected (NotDetected); Human Metapneumovirus Not Detected (NotDetected); Influenza A, PCR Not Detected (NotDetected); Influenza AH1, 2009 Not Detected (NotDetected); Influenza AH1, PCR Not Detected (NotDetected); Influenza AH3,PCR Not Detected (NotDetected); Influenza B, PCR Not Detected (NotDetected); Mycoplasma Pneumoniae, PCR Not Detected (NotDetected); Parainfluenza 1, PCR Not Detected (NotDetected); Parainfluenza 2, PCR Not Detected (NotDetected); Parainfluenza 3, PCR Not Detected (NotDetected); Parainfluenza 4, PCR Not Detected (NotDetected); Respiratory Syncytial Virus Not Detected (NotDetected)
[2022-09-16 12:02] LABS: Rhinovirus/Enterovirus Detected (NotDetected)
== END 2022-09-16 10:38 | disposition home or self-care (01) ==
LOC: ER 09:22 → UTC 09:24
PROVIDERS: Emergency Provider Nurse Practitioner; PCP Emergency Medicine
DX: J32.9 Chronic sinusitis, unspecified (principal)
CPT/HCPCS: 87581; 87632; 87798; 87804; 99212; C9803; G0463; U0003; U0005

== ENCOUNTER → 2022-10-01 08:24 | Outpatient (CLI) | payer MEDICARE, OTHER, SELFPAY ==
--- NOTE | 2022-10-01 08:27 | XR_ITS ---
FINAL REPORT CLINICAL HISTORY: elbow pain, hx of surgery several yrs ago COMPARISON: June 2019 FINDINGS: RIGHT ELBOW 3 views were obtained. There is an elbow prosthesis. The humeral component appears properly seated. There is expansile lucency surrounding the ulnar component. 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 There are marked hypertrophic changes. There is surrounding soft tissue calcification or ossification. There is soft tissue swelling posterior to the olecranon. IMPRESSION: Postsurgical changes as described. No change from prior. Reviewed, Interpreted and Dictated by Jorge Regan MD Transcribed by Ivan Galdamez Authenticated and [facility]
== END ==
LOC: RAD 08:25
PROVIDERS: PCP Emergency Medicine; Visit Provider Emergency Medicine
DX: M25.521 Pain in right elbow (principal)
CPT/HCPCS: 73080

== ENCOUNTER → 2022-10-04 13:00 | Outpatient (CLI) | payer MEDICARE, OTHER, SELFPAY ==
[2022-10-04 19:19] LABS: Amphetamine/Metha Screen,Urine Negative ng/ml (<1000)
[2022-10-04 19:20] LABS: Barbiturates Screen,Urine Negative ng/ml (<200)
[2022-10-04 19:21] LABS: Benzodiazepines Screen,Urine Negative ng/ml (<200)
[2022-10-04 19:22] LABS: Cannabinoid Screen,Urine Negative ng/ml (<50)
[2022-10-04 19:23] LABS: Cocaine Screen,Urine Negative ng/ml (<300); Methadone Screen,Urine Negative ng/ml (<300)
[2022-10-04 19:25] LABS: Phencyclidine Screen,Urine Negative ng/ml (<25)
[2022-10-04 21:16] LABS: Opiate Screen,Urine Negative ng/ml (<300)
== END ==
PROVIDERS: PCP Emergency Medicine; Visit Provider Emergency Medicine
DX: M54.16 Radiculopathy, lumbar region (principal)
CPT/HCPCS: 80305

== ENCOUNTER → 2022-10-22 14:26 | Outpatient (CLI) | payer MEDICARE, OTHER, SELFPAY ==
[2022-10-22 13:58] LABS: Amphetamine/Metha Screen,Urine Negative ng/ml (<1000); Barbiturates Screen,Urine Negative ng/ml (<200)
[2022-10-22 13:59] LABS: Benzodiazepines Screen,Urine Negative ng/ml (<200)
[2022-10-22 14:00] LABS: Cannabinoid Screen,Urine Negative ng/ml (<50); Cocaine Screen,Urine Negative ng/ml (<300)
[2022-10-22 14:01] LABS: Methadone Screen,Urine Negative ng/ml (<300)
[2022-10-22 14:02] LABS: Opiate Screen,Urine Positive ng/ml (<300); Phencyclidine Screen,Urine Negative ng/ml (<25)
== END ==
PROVIDERS: PCP Emergency Medicine; Visit Provider Emergency Medicine
DX: M54.16 Radiculopathy, lumbar region (principal); Z79.899 Other long term (current) drug therapy
CPT/HCPCS: 80305

== ENCOUNTER 2022-12-05 16:08 | Emergency (ER) | payer MEDICARE, OTHER, SELFPAY ==
[2022-12-05] VITALS (8 sets, daily range): BP systolic 115–145; BP diastolic 60–75; PULSE 90–117; RESP 18; TEMP 37.1–37.6; O2SAT 95–99; BMI 27.7
--- NOTE | 2022-12-05 16:23 | ECG_ITS ---
APPROVED REPORT Exam: Resting ECG HR:116 bpm ECG Measurements Heart Rate 116 AXES IN 141 P 64 QRSd 76 QRS 83 QT 333 T 69 QTc 402 Conclusion SINUS TACHYCARDIA ABNORMAL RHYTHM ECG UNCONFIRMED REPORT Electronically signed by : Brenden Ceja MD 12/06/2022 20:14:13
--- NOTE | 2022-12-05 16:29 | HMH.EDGENADL ---
Discharge Plan Disposition Patient Disposition: Home, Self-Care Condition: Good Chief Complaint: Syncope Prescriptions Prescriptions: No Action clonazepam 0.5 mg tablet 0.5 mg PO BID Qty: 60 1RF hydrocodone-acetaminophen 10-325 mg tablet 1 tab PO QID Qty: 120 0RF pantoprazole 40 mg tablet,delayed release (DR/EC) 40 mg PO DAILY Qty: 90 0RF amlodipine 5 mg tablet See Rx Instructions .ROUTE .COMPLEX Qty: 30 3RF Dose Instruction: TAKE ONE TABLET BY MOUTH ONCE A DAY Rx Instructions: TAKE ONE TABLET BY MOUTH ONCE A DAY ergocalciferol (vitamin D2) 1,250 mcg (50,000 unit) capsule 1,250 mcg PO WEEKLY Qty: 13 2RF atorvastatin 10 mg tablet See Rx Instructions .ROUTE .COMPLEX Qty: 90 0RF Dose Instruction: TAKE ONE TABLET BY MOUTH AT BEDTIME Rx Instructions: TAKE ONE TABLET BY MOUTH AT BEDTIME cholecalciferol (vitamin D3) 25 mcg (1,000 unit) tablet See Rx Instructions .ROUTE .COMPLEX Qty: 30 0RF Dose Instruction: TAKE ONE TABLET BY MOUTH ONCE A DAY Rx Instructions: TAKE ONE TABLET BY MOUTH ONCE A DAY Referrals Follow up/Referrals: José Miguel Lyons MD [Primary Care Provider] - See instructions Activity Restrictions/Add. Instructions Additional Instructions/Restrictions: Rest and drink plenty of fluids. Follow-up with your primary care provider this week if diarrhea persists or if symptoms worsen or do not resolve. Clinical Impressions Clinical Impression: Syncope, vasovagal, Gastroenteritis Instructions Patient Instructions: DI for Syncope in Adults (Fainting), DI for Viral Gastroenteritis -- Adult Discharge ED Provider: Jamar Orourke General Adult HPI General Chief complaint: Syncope Stated complaint: fainted @0600 nausea, Time Seen by Provider: 12/05/22 17:23 History of Present Illness HPI narrative: Patient states that she awakened this morning at 6 AM with diffuse abdominal cramping, felt like she was having diarrhea pains. She went to the bathroom and had diarrhea and had a syncopal episode preceded by feeling hot flushed all over her body. No tongue biting or incontinence. No injury. Since that episode she has had 1 more episode of diarrhea and an episode of vomiting. Her abdomen feels sore. Denies fever. Did not see any blood in her diarrhea. No known exposures. No chest pain or shortness of breath. Related Data Previous Rx's Medication Instructions Recorded pantoprazole 40 mg tablet,delayed 40 mg PO DAILY GERD #90 tabs 06/26/21 release amlodipine 5 mg tablet See Rx Instructions .Route 10/15/22 .COMPLEX #30 tabs ergocalciferol (vitamin D2) 1,250 1,250 mcg PO WEEKLY #13 caps 10/15/22 mcg (50,000 unit) capsule atorvastatin 10 mg tablet See Rx Instructions .Route 10/20/22 .COMPLEX #90 tabs clonazepam 0.5 mg tablet 0.5 mg PO BID Anxiety #60 tabs 10/22/22 hydrocodone 10 mg-acetaminophen 1 tab PO QID #120 tabs 10/22/22 325 mg tablet cholecalciferol (vitamin D3) 25 See Rx Instructions .Route 11/16/22 mcg (1,000 unit) tablet .COMPLEX #30 tabs Allergies Allergy/AdvReac Type Severity Reaction Status Date / Time lisinopril Allergy Severe Anaphylaxis Verified 11/29/22 10:49 sulfamethoxazole AdvReac Severe Hives Verified 11/29/22 10:49 [From Bactrim] trimethoprim [From Bactrim] AdvReac Severe Hives [facility] 11/29/22 10:[facility] Disclaimer: The information contained in this section may have been updated after the patient was seen, as this information can be updated by other users. Medical History Anxiety Hyperlipidemia (~03/30/18) Hypertension Vitamin B12 deficiency (~03/30/18) Vitamin D deficiency (~03/30/18) Surgical History History of back surgery History of section History of cholecystectomy History of hysterectomy Family History (Reviewed 11/29/22 @ 11:10 by Flora
[2022-12-05 17:27] LABS: Basophils % 0.3 % (0.1-2.0); Eosinophils # 0.1 K/mm3 (0.0-0.4); Hematocrit 40.5 % (37.0-47.0); Hemoglobin 13.3 g/dL (12.2-16.2); Lymphocytes # 0.7 K/mm3 (0.7-4.5); Lymphocytes % 7.2 % (10-50); Mean Corpuscular HGB Conc 32.8 g/dL (31.8-35.4); Mean Corpuscular Hemoglobin 30.2 pg (27.0-31.2); Mean Corpuscular Volume 92.1 fl (81-99); Mean Platelet Volume 9.4 fl (7.4-10.4); Monocytes # 0.4 K/mm3 (0.1-1.0); Monocytes % 3.9 % (1.7-9.3); Neutrophils % 87.5 % (37.0-80.0); Platelet Count 228 K/mm3 (142-424); Red Blood Count 4.39 M/mm3 (4.20-5.40); Red Cell Distribution Width 13.1 % (11.5-17.5); White Blood Count 9.1 K/mm3 (4.8-10.8)
[2022-12-05 17:28] LABS: Chloride 106 mmol/L (98-107); MANUAL DIFFERENTIAL MANUAL DIFFERENTIAL (MANUAL DIFF)
[2022-12-05 17:29] LABS: Potassium 3.6 mmoL/L (3.5-5.1); Sodium 140 mmol/L (136-145)
[2022-12-05 17:31] LABS: Alanine Aminotransferase 20 U/L (12-78); Alkaline Phosphatase 77 U/L (38-126); Anion Gap 9.6 mEq/L (5-15); Aspartate Amino Transferase 29 U/L (14-36); Bilirubin,Total 0.9 mg/dl (0.2-1.3); Blood Urea Nitrogen 8 mg/dl (7-17); Carbon Dioxide 28 mmol/L (22.0-30.0); Creatinine Clearance Estimated 64 mL/min (50-200); Estimated Glomerular Filt Rate 82 ml/min (>60); GFR (African American) 100 ML/MIN (>60)
[2022-12-05 17:32] LABS: Albumin Level 4.1 g/dl (3.5-5.0); Albumin/Globulin Ratio 1.4 (1.1-1.8); Calcium 8.6 mg/dl (8.4-10.2); Glucose 120 mg/dl (74-100); Total Protein,Serum 7.1 g/dl (6.3-8.2)
--- NOTE | 2022-12-05 17:33 | CT_ITS ---
PROCEDURE INFORMATION: Exam: CT Abdomen And Pelvis With Contrast Exam date and time: 12/05/2022 6:07 PM Age: 72 years old Clinical indication: Abdominal pain; Generalized; Additional info: Abdo pain TECHNIQUE: Imaging protocol: Computed tomography of the abdomen and pelvis with contrast. Radiation optimization: All CT scans at this facility use at least one of these dose optimization techniques: automated exposure control; mA and/or kV adjustment per patient size (includes targeted exams where dose is matched to clinical indication); or iterative reconstruction. Contrast material: ISOVUE; Contrast volume: 75 ml; Contrast route: IV; COMPARISON: MR LUMBAR SPINE WO CON 06/26/2021 4:08 PM FINDINGS: Liver: Unremarkable. Gallbladder and bile ducts: Status post cholecystectomy. Pancreas: No pancreatic ductal dilation. Spleen: Unremarkable. Adrenal glands: Unremarkable. Kidneys and ureters: No renal or ureteral stones. No hydronephrosis. Stomach and bowel: Small periampullary duodenal diverticulum. No evidence of diverticulitis. No evidence of bowel obstruction or other acute pathology. Appendix: No evidence of appendicitis. Intraperitoneal space: No free fluid. No pneumoperitoneum. Vasculature: No abdominal aortic aneurysm or dissection. Lymph nodes: Unremarkable. Urinary bladder: Unremarkable. Reproductive: Status post hysterectomy. Bones/joints: Post-operative changes of prior lumbar decompression laminectomy and posterior lumbar fixation/fusion. Hardware appears intact. No evidence of acute osseous abnormality. Soft tissues: Unremarkable. IMPRESSION: 1. No acute findings in the abdomen or pelvis. 2. Small periampullary duodenal diverticulum. Findings can be asymptomatic or associated with intermittent pancreaticobiliary symptoms/disorders.
[2022-12-05 17:40] LABS: Lipase 29 U/L (23-300)
[2022-12-05 17:54] LABS: Troponin I < 0.01 ng/ml (0.00-0.034)
[2022-12-05 18:13] LABS: Lymphocytes % 6 % (10-50); Neutrophils % 89 % (42-76); Platelet Estimate Normal; RBC Morphology Normal; Total Cells Counted 100
--- NOTE | 2022-12-05 19:11 | PC.NURSE ---
shift change report given to dax og and germanrn
== END 2022-12-05 19:40 | disposition home or self-care (01) ==
PROVIDERS: Emergency Provider Emergency Medicine; PCP Emergency Medicine
DX: R55 Syncope and collapse (principal); K52.9 Noninfective gastroenteritis and colitis, unspecified; F41.9 Anxiety disorder, unspecified; E78.5 Hyperlipidemia, unspecified; I10 Essential (primary) hypertension; E55.9 Vitamin D deficiency, unspecified; D51.9 Vitamin B12 deficiency anemia, unspecified; Z90.710 Acquired absence of both cervix and uterus; Z90.49 Acquired absence of other specified parts of digestive tract; Z80.9 Family history of malignant neoplasm, unspecified; Z83.3 Family history of diabetes mellitus; Z83.42 Family history of familial hypercholesterolemia; Z82.49 Family history of ischemic heart disease and other diseases of the circulatory system; Z83.49 Family history of other endocrine, nutritional and metabolic diseases
CPT/HCPCS: 74177; 80053; 83690; 84484; 85007; 85025; 93005; 96361; 96374; 99285; J2405; Q9967

== ENCOUNTER → 2022-12-15 08:02 | Outpatient (CLI) | payer MEDICARE, OTHER, SELFPAY ==
--- NOTE | 2022-12-15 08:02 | MM_ITS ---
PROCEDURE INFORMATION: Exam: MG Bilateral Screening 3D Mammography Exam date and time: 12/15/2022 7:56 AM Age: 72 years old Clinical indication: Screening mammogram. TECHNIQUE: Imaging protocol: Bilateral Screening tomosynthesis and 2D mammography including computer-aided detection (CAD) when performed. COMPARISON: 1. MG MM DIG SCREENING MAMM BI W/CAD 01/15/2021 9:33 AM 2. MG DMDBAV DIG MAMM-DX EMERY W ADD VIEWS 12/26/2015 2:14 PM 3. MG DMSB DIG MAMM-SCREEN EMERY 12/17/2015 8:49 AM FINDINGS: MAMMOGRAPHY: Breast composition: There are scattered areas of fibroglandular density. Mass: None. Architectural distortion: No new or suspicious architectural distortion. Calcifications: Stable benign-appearing calcifications are present. No new or suspicious cluster of microcalcifications have developed. Asymmetric density: No new or suspicious asymmetric density is present Skin thickening: None. Axillary adenopathy: None. IMPRESSION: No mammographic evidence of malignancy. Recommend annual screening mammography unless otherwise clinically indicated. ASSESSMENT: BI-RADS category 2: Benign
== END ==
PROVIDERS: PCP Emergency Medicine; Visit Provider Obstetrics & Gynecology
DX: Z12.31 Encounter for screening mammogram for malignant neoplasm of breast (principal)
CPT/HCPCS: 77063; 77067

== ENCOUNTER 2023-01-10 09:23 | Emergency (ER) | payer MEDICARE, OTHER, SELFPAY ==
[2023-01-10 09:45] VITALS: BP 156/79; PULSE 77; RESP 22; TEMP 36.5; O2SAT 99; BMI 26.9
--- NOTE | 2023-01-10 10:11 | EXP.UTC ---
Discharge Plan Disposition Patient Disposition: Home, Self-Care Condition: Good Prescriptions Prescriptions: New methylprednisolone [Medrol (Alvarado)] 4 mg tablets,dose pack See Rx Instructions .Route .COMPLEX 6 Days Qty: 21 0RF Rx Instructions: taper pack; amoxicillin-pot clavulanate 875-125 mg Tablet 1 tab PO Q12H Qty: 20 0RF No Action clonazepam 0.5 mg tablet 0.5 mg PO BID Qty: 60 1RF hydrocodone-acetaminophen 10-325 mg tablet 1 tab PO QID Qty: 120 0RF methylprednisolone [Medrol (Alvarado)] 4 mg tablets,dose pack 4 mg PO DAILY Qty: 21 0RF Rx Instructions: Take as directed fluticasone propionate [Flonase Allergy Relief] 50 mcg/actuation spray,suspension 1 spray intranasal DAILY Qty: 16 1RF Rx Instructions: administer into each nostril amlodipine 5 mg tablet See Rx Instructions .ROUTE .COMPLEX Qty: 30 3RF Dose Instruction: TAKE ONE TABLET BY MOUTH ONCE A DAY Rx Instructions: TAKE ONE TABLET BY MOUTH ONCE A DAY ergocalciferol (vitamin D2) 1,250 mcg (50,000 unit) capsule 1,250 mcg PO WEEKLY Qty: 13 2RF atorvastatin 10 mg tablet See Rx Instructions .ROUTE .COMPLEX Qty: 90 0RF Dose Instruction: TAKE ONE TABLET BY MOUTH AT BEDTIME Rx Instructions: TAKE ONE TABLET BY MOUTH AT BEDTIME cholecalciferol (vitamin D3) 25 mcg (1,000 unit) tablet See Rx Instructions .ROUTE .COMPLEX Qty: 30 2RF Dose Instruction: TAKE ONE TABLET BY MOUTH ONCE A DAY Rx Instructions: TAKE ONE TABLET BY MOUTH ONCE A DAY Referrals Follow up/Referrals: José Miguel Lyons MD [Primary Care Provider] - See instructions Activity Restrictions/Add. Instructions Additional Instructions/Restrictions: *Monitor Temp, Over the counter Motrin or Tylenol as directed/as needed Tylenol every 4 hours and Motrin every 6 hours (as long as your family doctor has told you that you can take it) for fever or pain. and straight to ER if unable to lower temp less than 101.0 after medication given *Warm salt water gargles may help to soothe the throat *Throat Lozenges? *Warm fluids like tea with honey may help to soothe the throat? *Sleep elevated *Humidifier/Vaporizer *Flonase 2 sprays in each nostril daily but be aware that it may take 2-3 days before you notice improvement Follow up IMMEDIATELY for new or worsening symptoms or no Noticeable improvement over the next 48-72 hours. 911 for difficulty breathing or swallowing Clinical Impressions Clinical Impression: Sinusitis Instructions Patient Instructions: DI for Sinusitis, Sinusitis, Middle Ear Infection Discharge ED [place]kis [place] [facility] [place] General Stated complaint: Lt ear pain, sinus congestion, cough Mode of Arrival: Ambulatory Source of Information: Patient Limitations: No Limitations Time Seen by Provider: 01/10/23 10:11 Description of Symptoms (Recalled from Triage Doc. by RN): PATIENT C/O BILATERAL EAR ACHE AND SINUS PRESSURE X 1 WEEK HEENT Symptoms (Recalled from RN notes): Yes Resp Symptoms (Recalled from RN notes): No Skin Symptoms (Recalled from RN notes): No MS Symptoms (Recalled from RN notes): No Functional Status (Recalled from RN notes): WNL History of Present Illness Provider Complaint: Patient states that she has been having bilateral ear pain and sinus pain and pressure for over a week that has continued to get worse States that she is having throbbing pain in ears especially in the left and pressure behind her eyes like she gets with sinus infection Related Data Previous Rx's Medication Instructions Recorded amlodipine 5 mg tablet See Rx Instructions .Route 10/15/22 .COMPLEX #30 tabs ergocalciferol (vitamin D2) 1,250 1,250 mcg PO WEEKLY #13 caps 10/15/22 mcg (50,000 unit) capsule atorvastatin 10 mg tablet See Rx Instructions .Route 10/20/22 .COMPLEX #90 tabs clonazepam 0.5 mg tablet 0.5 mg PO BID Anxiety #60 tabs 12/21/22 hydrocodone 10 m
[2023-01-10 10:25] VITALS: BP 156/79; PULSE 77; RESP 22; TEMP 36.5; O2SAT 99
== END 2023-01-10 10:29 | disposition home or self-care (01) ==
PROVIDERS: Emergency Provider Nurse Practitioner; PCP Emergency Medicine
DX: J32.9 Chronic sinusitis, unspecified (principal)
CPT/HCPCS: 99212; 99213; G0463

== ENCOUNTER → 2023-02-15 08:45 | Outpatient (CLI) | payer MEDICARE, OTHER, SELFPAY ==
[2023-02-15 14:01] LABS: Amphetamine/Metha Screen,Urine Negative ng/ml (<1000)
[2023-02-15 14:02] LABS: Barbiturates Screen,Urine Negative ng/ml (<200)
[2023-02-15 14:04] LABS: Benzodiazepines Screen,Urine Negative ng/ml (<200); Cannabinoid Screen,Urine Negative ng/ml (<50)
[2023-02-15 14:05] LABS: Cocaine Screen,Urine Negative ng/ml (<300); Methadone Screen,Urine Negative ng/ml (<300)
[2023-02-15 14:06] LABS: Opiate Screen,Urine Positive ng/ml (<300)
[2023-02-15 14:07] LABS: Phencyclidine Screen,Urine Negative ng/ml (<25)
== END ==
PROVIDERS: PCP Emergency Medicine; Visit Provider Emergency Medicine
DX: M54.16 Radiculopathy, lumbar region (principal)
CPT/HCPCS: 80305

== ENCOUNTER 2023-03-03 08:08 | Emergency (ER) | payer MEDICARE, OTHER, SELFPAY ==
[2023-03-03 08:16] VITALS: BP 141/84; PULSE 68; RESP 18; TEMP 36.8; O2SAT 99; BMI 27.7
--- NOTE | 2023-03-03 08:26 | HMH.EDGENADL ---
Discharge Plan Disposition Patient Disposition: Home, Self-Care Prescriptions Prescriptions: No Action fluticasone propionate [Flonase Allergy Relief] 50 mcg/actuation spray,suspension 1 spray intranasal DAILY Qty: 16 1RF Rx Instructions: administer into each nostril ergocalciferol (vitamin D2) 1,250 mcg (50,000 unit) capsule 1,250 mcg PO WEEKLY Qty: 13 2RF cholecalciferol (vitamin D3) 25 mcg (1,000 unit) tablet See Rx Instructions .ROUTE .COMPLEX Qty: 30 2RF Dose Instruction: TAKE ONE TABLET BY MOUTH ONCE A DAY Rx Instructions: TAKE ONE TABLET BY MOUTH ONCE A DAY clonazepam 0.5 mg tablet 0.5 mg PO BID Qty: 60 1RF amlodipine 5 mg tablet See Rx Instructions .ROUTE .COMPLEX Qty: 90 0RF Dose Instruction: TAKE ONE TABLET BY MOUTH ONCE A DAY Rx Instructions: TAKE ONE TABLET BY MOUTH ONCE A DAY atorvastatin 10 mg tablet See Rx Instructions .ROUTE .COMPLEX Qty: 90 0RF Dose Instruction: TAKE ONE TABLET BY MOUTH AT BEDTIME Rx Instructions: TAKE ONE TABLET BY MOUTH AT BEDTIME hydrocodone-acetaminophen 10-325 mg tablet 1 tab PO QID Qty: 120 0RF Referrals Follow up/Referrals: José Miguel Lyons MD [Primary Care Provider] - See instructions Activity Restrictions/Add. Instructions Additional Instructions/Restrictions: You may take Tylenol and ibuprofen as needed for pain and follow-up with your primary care doctor or orthopedic surgery in 1 to 2 weeks if the trajectory is not improvement to get an outpatient MRI. Clinical Impressions Clinical Impression: Contusion of knee, left Discharge ED Provider: Oumar Sheldon General Adult HPI General Chief complaint: Extremity Injury, Lower Stated complaint: Fall@home 03/03 LT knee pain Time Seen by Provider: 03/03/23 08:26 Mode of Arrival: Ambulatory Source of Information: Patient Limitations: No Limitations Description of Symptoms (Recalled from ER Triage Doc. by RN): Presents via POV due to left knee pain secondary to fall this morning at approx. 05:00 down a few stairs at home. Denies head injury. Denies blood thinners. History of Present Illness HPI narrative: Patient is a 73-year-old female presenting with left knee pain after she fell down the stairs this morning at 5 AM. This was a mechanical fall there is no syncopal episode associated with it. She states that she had no injury to her head and her neck chest abdomen pelvis or other long bones. Is unsure whether or not there is significant swelling. Has been able to ambulate without significant difficulty. States that the pain is not severe but moderate. Pain is on the medial aspect of her left knee primarily. Related Data Previous Rx's Medication Instructions Recorded ergocalciferol (vitamin D2) 1,250 1,250 mcg PO WEEKLY #13 caps 10/15/22 mcg (50,000 unit) capsule fluticasone propionate 50 1 spray intranasal DAILY #16 grams 12/28/22 mcg/actuation nasal spray,suspension (Flonase Allergy Relief) cholecalciferol (vitamin D3) 25 See Rx Instructions .Route 01/06/23 mcg (1,000 unit) tablet .COMPLEX #30 tabs amlodipine 5 mg tablet See Rx Instructions .Route 02/15/23 .COMPLEX #90 tabs atorvastatin 10 mg tablet See Rx Instructions .Route 02/15/23 .COMPLEX #90 tabs clonazepam 0.5 mg tablet 0.5 mg PO BID Anxiety #60 tabs 02/15/23 hydrocodone 10 mg-acetaminophen 1 tab PO QID #120 tabs 02/15/23 325 mg tablet Allergies Allergy/AdvReac Type Severity Reaction Status Date / Time lisinopril Allergy Severe Anaphylaxis Verified 02/25/23 09:35 sulfamethoxazole AdvReac Severe Hives Verified 02/25/23 09:35 [From Bactrim] trimethoprim [From Bactrim] AdvReac Severe Hives Verified 02/25/23 09:35 [facility] Disclaimer: The information contained in this section may have been updated after the patient was seen, as this information can be updated by other users. Medical History Brian
--- NOTE | 2023-03-03 08:27 | PC.NURSE ---
Dr. Sheldon at [facility] for pt eval
--- NOTE | 2023-03-03 08:30 | XR_ITS ---
FINAL REPORT CLINICAL HISTORY: fall, medial left knee pain FINDINGS: LEFT KNEE 3 views of the left knee were obtained. There is no acute fracture or dislocation. Visualized joint spaces are normally aligned. There are moderate degenerative changes. There is a small joint effusion. IMPRESSION: Small joint effusion with no acute bony abnormality. Moderate degenerative changes. Reviewed, Interpreted and Dictated by Manuel Apodaca III, MD Transcribed by Marcella Brown Authenticated and [facility]
--- NOTE | 2023-03-03 09:17 | PC.NURSE ---
CORA deshpande. Kenzie hahn MD. Awaiting XR results.
[2023-03-03 09:22] VITALS: BP 152/81; PULSE 65; O2SAT 98
[2023-03-03 09:30] VITALS: BP 150/77; PULSE 65; O2SAT 100
--- NOTE | 2023-03-03 09:53 | PC.NURSE ---
Called radiology for prelim on XR.
--- NOTE | 2023-03-03 09:56 | PC.NURSE ---
Preliminary provided to
[2023-03-03 10:00] VITALS: BP 160/82; PULSE 60; O2SAT 100
[2023-03-03 10:11] VITALS: BP 160/82; PULSE 65; RESP 16; TEMP 36.7; O2SAT 100
--- NOTE | 2023-03-03 10:11 | PC.NURSE ---
Nestor wrap applied to left knee. +PMS. Pt tolerated well.
== END 2023-03-03 10:13 | disposition home or self-care (01) ==
PROVIDERS: Emergency Provider Student in an Organized Health Care Education/Training Program; PCP Emergency Medicine
DX: S80.02XA Contusion of left knee, initial encounter (principal); W10.9XXA Fall (on) (from) unspecified stairs and steps, initial encounter
CPT/HCPCS: 73562; 99283

== ENCOUNTER → 2023-04-06 07:46 | Outpatient (POV) | payer MEDICARE, OTHER, SELFPAY | PROVIDERS: Visit Provider Specialist/Technologist | DX: Z00.00 Encounter for general adult medical examination without abnormal findings (principal) ==

== ENCOUNTER → 2023-04-13 23:18 | Outpatient (CLI) | payer MEDICARE, OTHER, SELFPAY ==
[2023-04-13 16:11] LABS: Amphetamine/Metha Screen,Urine Negative ng/ml (<1000); Benzodiazepines Screen,Urine Negative ng/ml (<200)
[2023-04-13 16:12] LABS: Barbiturates Screen,Urine Negative ng/ml (<200)
[2023-04-13 16:13] LABS: Cannabinoid Screen,Urine Negative ng/ml (<50); Cocaine Screen,Urine Negative ng/ml (<300)
[2023-04-13 16:14] LABS: Methadone Screen,Urine Negative ng/ml (<300); Opiate Screen,Urine Positive ng/ml (<300)
[2023-04-13 16:15] LABS: Phencyclidine Screen,Urine Negative ng/ml (<25)
== END ==
PROVIDERS: PCP Emergency Medicine; Visit Provider Emergency Medicine
DX: M54.16 Radiculopathy, lumbar region (principal)
CPT/HCPCS: 80305

== ENCOUNTER → 2023-06-15 09:14 | Outpatient (CLI) | payer MEDICARE, OTHER, SELFPAY ==
--- NOTE | 2023-06-15 09:21 | XR_ITS ---
FINAL REPORT CLINICAL HISTORY: right leg/knee pain COMPARISON: 07/23/2022 FINDINGS: Three views of the right knee reveal no evidence of fracture or dislocation. The bony alignment is normal. There is mild and moderate degenerative change. There is medial compartment narrowing. A moderate joint effusion is present. There is an anterior loose body measuring 7 mm, similar to the prior study. No localized soft tissue abnormality is identified. IMPRESSION: Degenerative changes without acute abnormality identified. Reviewed, Interpreted and Dictated by Manuel Apodaca III, MD Transcribed by Peyton Chand Authenticated and [facility]
--- NOTE | 2023-06-15 09:21 | XR_ITS ---
FINAL REPORT CLINICAL HISTORY: right leg pain COMPARISON: None FINDINGS: 2 views of the right tibia/fibula were obtained. There is no acute fracture or dislocation. The joint spaces are intact. There is no soft tissue abnormality. IMPRESSION: No acute fracture Reviewed, Interpreted and Dictated by Manuel Apodaca III, MD Transcribed by Peyton Chand Authenticated and . [facility]
== END ==
PROVIDERS: PCP Emergency Medicine; Visit Provider Emergency Medicine
DX: M79.604 Pain in right leg (principal); M25.561 Pain in right knee
CPT/HCPCS: 73562; 73590

== ENCOUNTER 2023-06-28 06:31 | Emergency (ER) | payer MEDICARE, OTHER, SELFPAY ==
[2023-06-28] VITALS (10 sets, daily range): BP systolic 111–143; BP diastolic 51–73; PULSE 87–99; RESP 16–20; TEMP 36.8–37.1; O2SAT 95–99; BMI 28.1
--- NOTE | 2023-06-28 06:28 | ECG_ITS ---
APPROVED REPORT Exam: Resting ECG HR:99 bpm ECG Measurements Heart Rate 99 AXES DE 141 P 57 QRSd 78 QRS 73 QT 343 T 40 QTc 399 Conclusion SINUS RHYTHM LOW QRS VOLTAGE IN PRECORDIAL LEADS [QRS DEFLECTION < 1.0 mV IN CHEST LEADS] NONSPECIFIC T-WAVE ABNORMALITY BORDERLINE ECG UNCONFIRMED REPORT Electronically signed by : Brenden Ceja MD 06/29/2023 17:35:40
--- NOTE | 2023-06-28 06:34 | XR_ITS ---
FINAL REPORT CLINICAL HISTORY: chest pressure, vomiting COMPARISON: 09/22/2021 FINDINGS: A portable view of the chest is obtained. Cardiac and mediastinal silhouettes are normal. Right cardiophrenic angle opacity is unchanged and may represent a prominent epicardial fat pad or pericardial cyst. The lungs are otherwise clear. There is no pleural effusion or pneumothorax. IMPRESSION: No acute process on this portable exam. Authenticated and [facility]
--- NOTE | 2023-06-28 06:36 | PC.NURSE ---
in room talking with patient at this time.
[2023-06-28 06:44] LABS: Basophils % 0.1 % (0.1-2.0); Eosinophils # 0.3 K/mm3 (0.0-0.4); Eosinophils % 2.2 % (0.1-12.0); Hematocrit 42.8 % (37.0-47.0); Hemoglobin 13.5 g/dL (12.2-16.2); Lymphocytes # 0.6 K/mm3 (0.7-4.5); Lymphocytes % 4.1 % (10-50); Mean Corpuscular HGB Conc 31.6 g/dL (31.8-35.4); Mean Corpuscular Volume 94.9 fl (81-99); Mean Platelet Volume 9.2 fl (7.4-10.4); Monocytes # 0.6 K/mm3 (0.1-1.0); Monocytes % 4.6 % (1.7-9.3); Neutrophils # 12.3 K/mm3 (1.8-7.8); Platelet Count 230 K/mm3 (142-424); Red Blood Count 4.51 M/mm3 (4.20-5.40); Red Cell Distribution Width 12.7 % (11.5-17.5); White Blood Count 13.8 K/mm3 (4.8-10.8)
--- NOTE | 2023-06-28 06:44 | HMH.EDGENADL ---
Discharge Plan Disposition Patient Disposition: Home, Self-Care Condition: Good Prescriptions Prescriptions: New ondansetron 4 mg tablet,disintegrating 4 mg PO Q8H PRN (Reason: nausea and vomiting) 4 Days Qty: 12 0RF No Action cholecalciferol (vitamin D3) 25 mcg (1,000 unit) tablet See Rx Instructions .ROUTE .COMPLEX Qty: 30 2RF Dose Instruction: TAKE ONE TABLET BY MOUTH ONCE A DAY Rx Instructions: TAKE ONE TABLET BY MOUTH ONCE A DAY ergocalciferol (vitamin D2) 1,250 mcg (50,000 unit) capsule 1,250 mcg PO WEEKLY Qty: 13 2RF clonazepam 0.5 mg tablet 0.5 mg PO BID Qty: 60 1RF atorvastatin 10 mg tablet See Rx Instructions .ROUTE .COMPLEX Qty: 90 0RF Dose Instruction: TAKE ONE TABLET BY MOUTH AT BEDTIME Rx Instructions: TAKE ONE TABLET BY MOUTH AT BEDTIME amlodipine 5 mg tablet See Rx Instructions .ROUTE .COMPLEX Qty: 90 0RF Dose Instruction: TAKE ONE TABLET BY MOUTH ONCE A DAY Rx Instructions: TAKE ONE TABLET BY MOUTH ONCE A DAY hydrocodone-acetaminophen 10-325 mg tablet 1 tab PO QID Qty: 120 0RF Activity Restrictions/Add. Instructions Additional Instructions/Restrictions: You were evaluated in the emergency department today. Please eat a bland diet until your symptoms have resolved. 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 Orally hydrate at home is much as possible. Return to the emergency department for any new or worsening symptoms. Follow-up with your primary care provider over the next 3 days Clinical Impressions Clinical Impression: Vomiting and diarrhea, Dizziness, Chest pressure, Gastroenteritis Instructions Patient Instructions: DI for Viral Gastroenteritis -- Adult, Gastroenteritis Diet Discharge ED Provider: Nicole Macario General Adult HPI <John Hitchcock MD - Last Filed: 06/28/23 06:59> General Chief complaint: Chest Pain Stated complaint: chest pain Time Seen by Provider: 06/28/23 06:32 Mode of Arrival: EMS Source of Information: Patient and EMS Limitations: No Limitations Description of Symptoms (Recalled from ER Triage Doc. by RN): pt c/o N/V/D and dizziness ongoing since 299. pt states she also had chest pressure but it has sense gone away. History of Present Illness HPI narrative: This is a 73-year-old female with history of hypertension, hyperlipidemia, anxiety presenting with multiple complaints. Patient states that around 3 AM, approximately 3.5 hours prior to arrival, she was woken up from sleep with vomiting. She vomited multiple times, was nonbloody, nonbilious. During episode of vomiting, patient felt lightheaded, dizzy, then had chest pressure that was substernal, did not radiate, but was associated with left arm numbness for 2 or 3 seconds, which self abated. Patient had 1 episode of loose stool while vomiting without blood. Has been also having chills, but denies any overt fevers. No sick contacts that she knows of, travel, left lower extremity symptoms, right upper extremity symptoms, any other neurologic deficits, or any other concerns. Related Data Previous Rx's Medication Instructions Recorded cholecalciferol (vitamin D3) 25 See Rx Instructions .Route 05/02/23 mcg (1,000 unit) tablet .COMPLEX #30 tabs ergocalciferol (vitamin D2) 1,250 1,250 mcg PO WEEKLY #13 caps 05/02/23 mcg (50,000 unit) capsule amlodipine 5 mg tablet See Rx Instructions .Route 06/08/23 .COMPLEX #90 tabs atorvastatin 10 mg tablet See Rx Instructions .Route 06/08/23 .COMPLEX #90 tabs clonazepam 0.5 mg tablet 0.5 mg PO BID Anxiety #60 tabs 06/08/23 hydrocodone 10 mg-acetaminophen 1 tab PO QID #120 tabs 06/08/23 325 mg tablet ondansetron 4 mg disintegrating 4 mg PO Q8H PRN nausea and 06/28/23 tablet vomiting 4 days #12 tabs Allergies Allergy/AdvReac Type Severity Reaction Status Date / Time lisinopril Allergy Severe Anaphylaxis Verified 06/28/23 06:35 sulfamethoxazole AdvRe
[2023-06-28 06:46] LABS: MANUAL DIFFERENTIAL MANUAL DIFFERENTIAL (MANUAL DIFF)
[2023-06-28 06:55] LABS: Alanine Aminotransferase 23 U/L (12-78); Albumin Level 3.9 g/dl (3.5-5.0); Albumin/Globulin Ratio 1.2 (1.1-1.8); Alkaline Phosphatase 74 U/L (38-126); Anion Gap 11.6 mEq/L (5-15); Aspartate Amino Transferase 30 U/L (14-36); Bilirubin,Total 0.5 mg/dl (0.2-1.3); Blood Urea Nitrogen 12 mg/dl (7-17); Calcium 8.5 mg/dl (8.4-10.2); Carbon Dioxide 28 mmol/L (22.0-30.0); Chloride 105 mmol/L (98-107); Creatinine Clearance Estimated 66 mL/min (50-200); Estimated Glomerular Filt Rate 82 ml/min (>60); GFR (African American) 100 ML/MIN (>60); Globulin 3.2 g/dL (1.3-3.2); Glucose 105 mg/dl (74-100); Lipase 38 U/L (23-300); Potassium 3.6 mmoL/L (3.5-5.1); Sodium 141 mmol/L (136-145); Total Protein,Serum 7.1 g/dl (6.3-8.2)
[2023-06-28 06:59] LABS: Eosinophils % 1 % (0-3); Lymphocytes % 6 % (10-50); Monocytes % 5 % (2-9); Neutrophils % 88 % (42-76); Platelet Estimate Normal; RBC Morphology Normal; Total Cells Counted 100
[2023-06-28 07:08] LABS: Troponin I < 0.01 ng/ml (0.00-0.034)
[2023-06-28 07:09] LABS: Lactic Acid 1.6 mmol/L (0.7-2.1)
[2023-06-28 07:42] LABS: Coronavirus 19, PCR Not Detected (NotDetected); Influenza A, PCR Not Detected (NotDetected); Influenza B, PCR Not Detected (NotDetected)
[2023-06-28 10:15] LABS: Troponin I < 0.01 ng/ml (0.00-0.034)
== END 2023-06-28 10:59 | disposition home or self-care (01) ==
PROVIDERS: Emergency Medicine; Emergency Provider Emergency Medicine; PCP Emergency Medicine
DX: R07.89 Other chest pain (principal); R42 Dizziness and giddiness; K52.9 Noninfective gastroenteritis and colitis, unspecified; I10 Essential (primary) hypertension; E78.5 Hyperlipidemia, unspecified
CPT/HCPCS: 71045; 80053; 83605; 83690; 84484; 85007; 85025; 87636; 93005; 96361; 96374; 96375; 96376; 99285; J0131; J2405

== ENCOUNTER → 2023-08-01 09:40 | Outpatient (CLI) | payer MEDICARE, OTHER, SELFPAY ==
[2023-08-01 14:50] LABS: Basophils % 0.5 % (0.1-2.0); Eosinophils # 0.2 K/mm3 (0.0-0.4); Eosinophils % 2.5 % (0.1-12.0); Hematocrit 39.8 % (37.0-47.0); Hemoglobin 12.7 g/dL (12.2-16.2); Lymphocytes % 30.1 % (10-50); Mean Corpuscular Hemoglobin 29.8 pg (27.0-31.2); Mean Corpuscular Volume 93.1 fl (81-99); Mean Platelet Volume 9.9 fl (7.4-10.4); Monocytes # 0.6 K/mm3 (0.1-1.0); Monocytes % 8.5 % (1.7-9.3); Neutrophils # 3.8 K/mm3 (1.8-7.8); Neutrophils % 58.4 % (37.0-80.0); Platelet Count 237 K/mm3 (142-424); Red Blood Count 4.28 M/mm3 (4.20-5.40); Red Cell Distribution Width 12.8 % (11.5-17.5); White Blood Count 6.5 K/mm3 (4.8-10.8)
[2023-08-01 15:37] LABS: Amphetamine/Metha Screen,Urine Negative ng/ml (<1000)
[2023-08-01 15:39] LABS: Cannabinoid Screen,Urine Negative ng/ml (<50)
[2023-08-01 15:40] LABS: Barbiturates Screen,Urine Negative ng/ml (<200)
[2023-08-01 15:41] LABS: Benzodiazepines Screen,Urine Negative ng/ml (<200); Opiate Screen,Urine Positive ng/ml (<300)
[2023-08-01 15:42] LABS: Cocaine Screen,Urine Negative ng/ml (<300)
[2023-08-01 15:43] LABS: Methadone Screen,Urine Negative ng/ml (<300)
[2023-08-01 15:44] LABS: Phencyclidine Screen,Urine Negative ng/ml (<25)
[2023-08-01 16:35] LABS: Chloride 106 mmol/L (98-107); Sodium 140 mmol/L (136-145)
[2023-08-01 16:36] LABS: Potassium 3.8 mmoL/L (3.5-5.1)
[2023-08-01 16:38] LABS: Alanine Aminotransferase 20 U/L (12-78); Alkaline Phosphatase 88 U/L (38-126); Anion Gap 12.8 mEq/L (5-15); Aspartate Amino Transferase 28 U/L (14-36); Bilirubin,Total 0.6 mg/dl (0.2-1.3); Blood Urea Nitrogen 11 mg/dl (7-17); Carbon Dioxide 25 mmol/L (22.0-30.0); Estimated Glomerular Filt Rate 82 ml/min (>60); GFR (African American) 100 ML/MIN (>60); Iron 85 ug/dL (37-170)
[2023-08-01 16:39] LABS: Albumin Level 3.9 g/dl (3.5-5.0); Albumin/Globulin Ratio 1.4 (1.1-1.8); Globulin 2.8 g/dL (1.3-3.2); Glucose 76 mg/dl (74-100); Total Protein,Serum 6.7 g/dl (6.3-8.2)
[2023-08-01 16:57] LABS: 25-OH Vitamin D, Total 49.4 ng/mL (30-100)
[2023-08-01 17:00] LABS: Total Iron Binding Capacity 316 ug/dL (265-497)
[2023-08-01 17:10] LABS: Thyroid Stimulating Hormone 2.09 uIU/mL (0.465-4.68)
== END ==
PROVIDERS: PCP Emergency Medicine; Visit Provider Emergency Medicine
DX: M54.16 Radiculopathy, lumbar region (principal); E55.9 Vitamin D deficiency, unspecified; R53.83 Other fatigue; L60.3 Nail dystrophy; F41.9 Anxiety disorder, unspecified; Z68.29 Body mass index [BMI] 29.0-29.9, adult; D64.9 Anemia, unspecified
CPT/HCPCS: 80053; 80305; 82306; 83540; 83550; 84443; 85025

== ENCOUNTER → 2023-09-27 14:50 | Outpatient (CLI) | payer MEDICARE, OTHER, SELFPAY ==
[2023-09-27 14:26] LABS: Amphetamine/Metha Screen,Urine Negative ng/ml (<1000)
[2023-09-27 14:27] LABS: Barbiturates Screen,Urine Negative ng/ml (<200)
[2023-09-27 14:28] LABS: Benzodiazepines Screen,Urine Negative ng/ml (<200); Cannabinoid Screen,Urine Negative ng/ml (<50)
[2023-09-27 14:29] LABS: Cocaine Screen,Urine Negative ng/ml (<300)
[2023-09-27 14:30] LABS: Methadone Screen,Urine Negative ng/ml (<300); Opiate Screen,Urine Positive ng/ml (<300)
[2023-09-27 14:31] LABS: Phencyclidine Screen,Urine Negative ng/ml (<25)
== END ==
PROVIDERS: PCP Emergency Medicine; Visit Provider Emergency Medicine
DX: M54.16 Radiculopathy, lumbar region (principal)
CPT/HCPCS: 80305

== ENCOUNTER 2023-11-24 11:34 | Outpatient (CLI) | payer MEDICARE, OTHER, SELFPAY ==
[2023-11-24 19:31] LABS: Basophils # 0.1 K/mm3 (0-0.2); Basophils % 0.9 % (0.1-2.0); Eosinophils # 0.1 K/mm3 (0.0-0.4); Eosinophils % 2.5 % (0.1-12.0); Hemoglobin 12.8 g/dL (12.2-16.2); Lymphocytes % 33.1 % (10-50); Mean Corpuscular HGB Conc 32.7 g/dL (31.8-35.4); Mean Corpuscular Hemoglobin 30.7 pg (27.0-31.2); Mean Corpuscular Volume 93.7 fl (81-99); Mean Platelet Volume 10.9 fl (7.4-10.4); Monocytes # 0.5 K/mm3 (0.1-1.0); Monocytes % 8.1 % (1.7-9.3); Neutrophils # 3.3 K/mm3 (1.8-7.8); Neutrophils % 55.4 % (37.0-80.0); Platelet Count 235 K/mm3 (142-424); Red Blood Count 4.16 M/mm3 (4.20-5.40); White Blood Count 5.9 K/mm3 (4.8-10.8)
[2023-11-24 19:45] LABS: Alanine Aminotransferase 16 U/L (12-78); Albumin Level 3.9 g/dl (3.5-5.0); Albumin/Globulin Ratio 1.4 (1.1-1.8); Alkaline Phosphatase 81 U/L (38-126); Anion Gap 11.7 mEq/L (5-15); Aspartate Amino Transferase 23 U/L (14-36); Bilirubin,Total 0.5 mg/dl (0.2-1.3); Blood Urea Nitrogen 13 mg/dl (7-17); Calcium 8.8 mg/dl (8.4-10.2); Carbon Dioxide 27 mmol/L (22.0-30.0); Chloride 104 mmol/L (98-107); Chol/HDL Ratio 3.4 (1-3.5); Cholesterol 175 mg/dl (140-200); Estimated Glomerular Filt Rate 71 ml/min (>60); GFR (African American) 85 ML/MIN (>60); Globulin 2.7 g/dL (1.3-3.2); Glucose 96 mg/dl (74-100); HDL Cholesterol 51 mg/dl (40-60); Potassium 3.7 mmoL/L (3.5-5.1); Sodium 139 mmol/L (136-145); Total Protein,Serum 6.6 g/dl (6.3-8.2); Triglycerides 131 mg/dl (30-150); VLDL Cholesterol 26 mg/dL (0-40)
[2023-11-24 20:15] LABS: Thyroid Stimulating Hormone 1.37 uIU/mL (0.465-4.68)
== END 2023-11-24 23:59 ==
LOC: LAB.DROPOF 11:35
PROVIDERS: PCP Physician Assistant; Visit Provider Physician Assistant
DX: E78.5 Hyperlipidemia, unspecified (principal); Z79.899 Other long term (current) drug therapy
CPT/HCPCS: 80053; 80061; 84443; 85025

== ENCOUNTER 2024-01-14 13:08 | Emergency (ER) | payer MEDICARE, OTHER, SELFPAY ==
[2024-01-14 13:10] VITALS: BP 143/66; PULSE 105; RESP 19; TEMP 37.1; O2SAT 97; BMI 28.7
[2024-01-14 13:24] LABS: Coronavirus 19, PCR Not Detected (NotDetected); Influenza A, PCR Not Detected (NotDetected); Influenza B, PCR Not Detected (NotDetected)
[2024-01-14] MEDS: ACETAMINOPHEN 500MG TAB 1000 MG PO (13:59)
[2024-01-14] MEDS: KETOROLAC 30MG/ML VIAL 30 MG IM (14:00)
[2024-01-14 14:02] VITALS: BP 140/62; PULSE 102; RESP 18; O2SAT 98
--- NOTE | 2024-01-14 15:10 | HMH.EDGENADL ---
Discharge Plan Disposition Patient Disposition: Home, Self-Care Condition: Good Prescriptions Prescriptions: No Action amlodipine 5 mg tablet See Rx Instructions .ROUTE .COMPLEX Qty: 90 0RF Dose Instruction: TAKE ONE TABLET BY MOUTH ONCE A DAY Rx Instructions: TAKE ONE TABLET BY MOUTH ONCE A DAY atorvastatin 10 mg tablet See Rx Instructions .ROUTE .COMPLEX Qty: 90 0RF Dose Instruction: TAKE ONE TABLET BY MOUTH AT BEDTIME Rx Instructions: TAKE ONE TABLET BY MOUTH AT BEDTIME cholecalciferol (vitamin D3) 25 mcg (1,000 unit) tablet See Rx Instructions .ROUTE .COMPLEX Qty: 90 0RF Dose Instruction: TAKE ONE TABLET BY MOUTH ONCE A DAY Rx Instructions: TAKE ONE TABLET BY MOUTH ONCE A DAY ergocalciferol (vitamin D2) 1,250 mcg (50,000 unit) capsule See Rx Instructions .ROUTE .COMPLEX Qty: 14 2RF Dose Instruction: TAKE 1 CAPSULE BY MOUTH ONCE WEEKLY Rx Instructions: TAKE 1 CAPSULE BY MOUTH ONCE WEEKLY hydrocodone-acetaminophen 10-325 mg tablet 1 tab PO TID 30 Days Qty: 90 0RF ondansetron 4 mg tablet,disintegrating 4 mg PO Q8H PRN (Reason: nausea and vomiting) 4 Days Qty: 12 0RF Referrals Follow up/Referrals: Terri Joseph PA [Primary Care Provider] - See instructions Activity Restrictions/Add. Instructions Additional Instructions/Restrictions: You were evaluated in the emergency department today. Please continue taking your medications at home as prescribed. Follow-up closely with your primary care provider. Return to the emergency department for new or worsening symptoms. Clinical Impressions Clinical Impression: Generalized joint pain Instructions Patient Instructions: DI for Chronic Pain -- Adult Discharge ED Provider: Nicole Macario General Adult HPI General Chief complaint: Upper Respiratory Infection Stated complaint: body pain, fever, chills Time Seen by Provider: 01/14/24 13:48 Mode of Arrival: Ambulatory Source of Information: Patient Limitations: No Limitations Description of Symptoms (Recalled from ER Triage Doc. by RN): 73 yo F presents to ED with c/o body aches, fever, cough, sore throat. symptoms ongoing for the past couple of days . no sick contacts known History of Present Illness HPI narrative: This patient is a 73-year-old female with history of anxiety, hyperlipidemia, fibromyalgia, and osteoarthritis presenting to the emergency department for evaluation with concern for generalized body pain. She also states that she has had sore throat, cough, and congestion for few days. No known sick contacts. She states that she thought she was just having a flareup of her fibromyalgia. No other concerns noted, such as significant chest pain, shortness of breath, abdominal pain, or other concerns. Related Data Previous Rx's Medication Instructions Recorded ondansetron 4 mg disintegrating 4 mg PO Q8H PRN nausea and 06/28/23 tablet vomiting 4 days #12 tabs amlodipine 5 mg tablet See Rx Instructions .Route 11/24/23 .COMPLEX #90 tabs atorvastatin 10 mg tablet See Rx Instructions .Route 11/24/23 .COMPLEX #90 tabs cholecalciferol (vitamin D3) 25 See Rx Instructions .Route 11/24/23 mcg (1,000 unit) tablet .COMPLEX #90 tabs ergocalciferol (vitamin D2) 1,250 See Rx Instructions .Route 01/09/24 mcg (50,000 unit) capsule .COMPLEX #14 caps hydrocodone 10 mg-acetaminophen 1 tab PO TID 30 days #90 tabs 01/10/24 325 mg tablet Allergies Allergy/AdvReac Type Severity Reaction Status Date / Time lisinopril Allergy Severe Anaphylaxis Verified 01/05/24 09:51 sulfamethoxazole AdvReac Severe Hives Verified 01/05/24 09:51 [From Bactrim] trimethoprim [From Bactrim] AdvReac Severe Hives Verified 01/05/24 09:51 [facility] Disclaimer: The information contained in this section may have been updated after the patient was seen, as this information can be updated by other users. Medical History Abdominal pain Anxiety Arthritic-like pain Bilateral otitis media Bronchitis COVID-19 Ear ache Elbow pain, right Gastroenteritis Gastroenteritis Hyperlipidemia (~03/30/18) Hypertension Hypokalemia Impacted cerumen of both ears Influenza Injury of great toe Knee pain, acute Laceration of right thumb Otitis media Pain in right foot Syncope, vasovagal Toe sprain Urinary incontinence UTI (urinary tract infection) Viral illness Vitamin B12 deficiency (~03/30/18) Vitamin D deficiency (~03/30/18) Warts of foot Surgical History History of back surgery History of bunionectomy of right great toe History of section History of cholecystectomy History of hysterectomy History of right elbow replacement S/P left rotator cuff repair Family History Other Cancer Diabetes Hyperlipidemia Hypertension Thyroid disorder Social History Smoking Status: Never smoker alcohol intake: never substance use type: denies use current occupational status: other Travel in the last 8 weeks: None household members: family housing: house ROS Obtained: Yes All systems reviewed & no additional complaints except as documented Physical Exam General General appearance: alert and in no apparent distress Head Head exam: atraumatic and normocephalic Eye Eye exam: Present normal appearance, PERRL and EOMI ENT ENT exam: Present normal exam, normal oropharynx, mucous membranes moist and normal external ear exam Neck Neck exam: Present normal inspection, full ROM and trachea midline; Absent tenderness Chest Chest inspection: Present normal inspection and symmetric chest wall rise; Absent tenderness Respiratory Respiratory exam: Present normal lung sounds bilaterally; Absent respiratory distress, wheezes, stridor or accessory muscle use Cardiovascular Cardiovascular exam: Present regular rate and normal rhythm Abdominal Exam Abdominal exam: Present soft; Absent distention, tenderness or guarding Extremities Exam Extremities exam: Present normal inspection, full ROM and normal capillary refill; Absent tenderness or edema Back Exam Back exam: Present normal inspection and full ROM; Absent tenderness Neurological Exam Neurological exam: Present alert, oriented X3, CN II-XII intact and normal gait; Absent motor sensory deficit Psychiatric Psychiatric exam: Present normal affect and normal mood Skin Skin exam: Present warm and dry Medical Decision Making Medical Records Medical records reviewed: Yes I reviewed the patient's medical records. Chava Inquiry Pt receiving controlled substance: No Vital Signs: 01/14/24 13:10 01/14/24 14:02 01/14/24 15:11 Temperature 98.8 F 98.8 F Temperature Source Oral Pulse Rate 102 H 95 H Pulse Rate [Left Radial] 105 H Respiratory Rate 19 18 16 Blood Pressure 140/62 105/59 L Blood Pressure [Right Arm] 143/66 H Blood Pressure Mean [Right Arm] 91 Blood Pressure Source Automatic Cuff Blood Pressure Position Sitting 02 Sat by Pulse Oximetry 97 98 Oxygen Delivery Method Room Air Room Air Room Air Lab Data Lab results reviewed: Yes I reviewed the patient's lab results. Lab Results 01/14/24 13:16: SARS-CoV-2 (PCR) Not detected, Influenza A Untype (PCR) Not detected, Influenza Type B (PCR) Not detected Orders (Tests/Meds): ED MEDICATIONS Discontinued Medications Generic Name Dose Route Start Last Admin Trade Name Sherif PRN Reason Stop Dose Admin Acetaminophen 1,000 mg 01/14/24 13:52 01/14/24 13:59 Acetaminophen 500mg Tab PO 01/14/24 13:53 1,000 mg ONCE ONE Administration Ketorolac Tromethamine 30 mg 01/14/24 13:52 01/14/24 14:00 Ketorolac 30mg/Ml Vial IM 01/14/24 13:53 30 mg ONCE ONE Administration ORDERS Category Date Time Status Rapid PCR Covid and Flu A/B Stat Lab 01/14/24 13:16 Completed Medical Decision Narrative: In summary, this patient is a 73-year-old female presenting to the Emergency Department for evaluation of generalized bodyaches, sore throat, congestion, and cough. Differential diagnoses considered include but are not limited to viral syndrome, dehydration, fibromyalgia flare, osteoarthritis flare. Ruling out the most morbid conditions drove assessment. On exam, the patient is very well-appearing. Cardiopulmonary exam is reassuring. She has generalized body pain, which she thinks is her fibromyalgia or arthritis, as she states that it is flared up. She has other constitutional symptoms that would lead me to believe that she has a viral syndrome. No findings on exam to suggest an acute bacterial infection, and vitals are reassuring. Patient was given IM Toradol and oral Tylenol with good improvement in her pain. She tested negative for COVID and flu, but I feel she may likely have another viral upper respiratory infection. After improvement in symptoms based on reassuring history and exam, I do feel that she is appropriate for discharge. I considered obtaining basic lab work, however I do not feel that this would policy change clerk. Patient was discharged with instructions for close outpatient follow-up with her primary care provider and strict return precautions. Critical Care Critical Care Time Critical Care Time: No
[2024-01-14 15:11] VITALS: BP 105/59; PULSE 95; RESP 16; TEMP 37.1; O2SAT 95
== END 2024-01-14 15:11 | disposition home or self-care (01) ==
PROVIDERS: Emergency Provider Emergency Medicine; PCP Physician Assistant
DX: R50.9 Fever, unspecified (principal); R05.9 Cough, unspecified; J02.9 Acute pharyngitis, unspecified; R09.81 Nasal congestion; M79.7 Fibromyalgia; E78.5 Hyperlipidemia, unspecified; F41.9 Anxiety disorder, unspecified; I10 Essential (primary) hypertension
CPT/HCPCS: 87636; 96372; 99283

== ENCOUNTER 2024-01-18 11:10 | Outpatient (CLI) | payer MEDICARE, OTHER, SELFPAY ==
[2024-01-18 11:28] LABS: Basophils # 0.1 K/mm3 (0-0.2); Basophils % 0.8 % (0.1-2.0); Eosinophils # 0.3 K/mm3 (0.0-0.4); Hematocrit 39.3 % (37.0-47.0); Hemoglobin 12.6 g/dL (12.2-16.2); Mean Corpuscular Hemoglobin 31.2 pg (27.0-31.2); Mean Corpuscular Volume 97.6 fl (81-99); Mean Platelet Volume 9.7 fl (7.4-10.4); Monocytes # 0.4 K/mm3 (0.1-1.0); Monocytes % 6.4 % (1.7-9.3); Neutrophils # 3.7 K/mm3 (1.8-7.8); Neutrophils % 57.9 % (37.0-80.0); Platelet Count 229 K/mm3 (142-424); Red Blood Count 4.03 M/mm3 (4.20-5.40); Red Cell Distribution Width 12.9 % (11.5-17.5); White Blood Count 6.3 K/mm3 (4.8-10.8)
[2024-01-18 11:55] LABS: Alanine Aminotransferase 17 U/L (12-78); Albumin Level 4.2 g/dl (3.5-5.0); Albumin/Globulin Ratio 1.6 (1.1-1.8); Alkaline Phosphatase 77 U/L (38-126); Anion Gap 11.1 mEq/L (5-15); Aspartate Amino Transferase 24 U/L (14-36); Bilirubin,Total 0.4 mg/dl (0.2-1.3); Blood Urea Nitrogen 12 mg/dl (7-17); Calcium 9.4 mg/dl (8.4-10.2); Carbon Dioxide 29 mmol/L (22.0-30.0); Chloride 104 mmol/L (98-107); Chol/HDL Ratio 3.7 (1-3.5); Cholesterol 168 mg/dl (140-200); Erythrocyte Sedimentation Rate 27 mm/hr (0-30); Estimated Glomerular Filt Rate 55 ml/min (>60); GFR (African American) 66 ML/MIN (>60); Globulin 2.6 g/dL (1.3-3.2); Glucose 77 mg/dl (74-100); HDL Cholesterol 46 mg/dl (40-60); Potassium 4.1 mmoL/L (3.5-5.1); Sodium 140 mmol/L (136-145); Total Protein,Serum 6.8 g/dl (6.3-8.2); Triglycerides 161 mg/dl (30-150); VLDL Cholesterol 32 mg/dL (0-40)
[2024-01-18 12:09] LABS: C-Reactive Protein 7.3 mg/L (0-4); Direct LDL Cholesterol 75.53 mg/dL (100-129)
[2024-01-18 12:16] LABS: 25-OH Vitamin D, Total 64.2 ng/mL (30-100)
[2024-01-18 12:26] LABS: Thyroid Stimulating Hormone 1.46 uIU/mL (0.465-4.68)
[2024-01-18 14:29] LABS: Vitamin B12 294 pg/mL (239-931)
[2024-01-19 08:03] LABS: RA Latex Turbid. <10.0 IU/mL (<14.0)
[2024-01-19 13:13] LABS: Anti-Centromere B Antibodies <0.2 AI (0.0-0.9); Anti-DNA (DS) Ab Qn <1 IU/mL (0-9); Anti-Jo-1 <0.2 AI (0.0-0.9); Anti-Smith Antibody <0.2 AI (0.0-0.9); Antichromatin Antibodies <0.2 AI (0.0-0.9); Antiscleroderma-70 Antibodies <0.2 AI (0.0-0.9); RNP Antibodies <0.2 AI (0.0-0.9); Sjogren's Anti-SS-A <0.2 AI (0.0-0.9); Sjogren's Anti-SS-B <0.2 AI (0.0-0.9)
[2024-01-19 14:32] LABS: Anti-Cyclic Citrullinated Pept 4 units (0-19)
== END 2024-01-18 23:59 ==
LOC: LAB.DROPOF 11:12
PROVIDERS: PCP Physician Assistant; Visit Provider Physician Assistant
DX: F41.9 Anxiety disorder, unspecified (principal); E53.8 Deficiency of other specified B group vitamins; E55.9 Vitamin D deficiency, unspecified; R53.83 Other fatigue; E78.5 Hyperlipidemia, unspecified
CPT/HCPCS: 80053; 80061; 82306; 82607; 84443; 85025; 85651; 86140; 86200; 86225; 86235; 86431

== ENCOUNTER 2024-03-06 07:49 | Emergency (ER) | payer MEDICARE, OTHER, SELFPAY ==
[2024-03-06 07:50] VITALS: BP 128/79; PULSE 95; RESP 16; TEMP 36.7; O2SAT 99; BMI 29.0
--- NOTE | 2024-03-06 07:53 | HMH.EDGENADL ---
Discharge Plan Disposition Patient Disposition: Home, Self-Care Condition: Good Prescriptions Prescriptions: New fluticasone propionate [Allergy Relief (fluticasone)] 50 mcg/actuation spray,suspension 1 spray intranasal DAILY 14 Days Qty: 16 0RF Rx Instructions: administer into each nostril lidocaine HCl [Lidocaine Viscous] 2 % solution 1 applic mucous membrane Q8H PRN (Reason: pain) 5 Days Qty: 100 0RF No Action amlodipine 5 mg tablet See Rx Instructions .ROUTE .COMPLEX Qty: 90 0RF Dose Instruction: TAKE ONE TABLET BY MOUTH ONCE A DAY Rx Instructions: TAKE ONE TABLET BY MOUTH ONCE A DAY atorvastatin 10 mg tablet See Rx Instructions .ROUTE .COMPLEX Qty: 90 0RF Dose Instruction: TAKE ONE TABLET BY MOUTH AT BEDTIME Rx Instructions: TAKE ONE TABLET BY MOUTH AT BEDTIME cholecalciferol (vitamin D3) 25 mcg (1,000 unit) tablet See Rx Instructions .ROUTE .COMPLEX Qty: 90 0RF Dose Instruction: TAKE ONE TABLET BY MOUTH ONCE A DAY Rx Instructions: TAKE ONE TABLET BY MOUTH ONCE A DAY hydrocodone-acetaminophen 10-325 mg tablet 1 tab PO TID 30 Days Qty: 90 0RF ergocalciferol (vitamin D2) 1,250 mcg (50,000 unit) capsule See Rx Instructions .ROUTE .COMPLEX Qty: 14 2RF Dose Instruction: TAKE 1 CAPSULE BY MOUTH ONCE WEEKLY Rx Instructions: TAKE 1 CAPSULE BY MOUTH ONCE WEEKLY cyanocobalamin (vitamin B-12) 5,000 mcg tablet,disintegrating 5,000 mcg PO DAILY Qty: 90 0RF ondansetron 4 mg tablet,disintegrating 4 mg PO Q8H PRN (Reason: nausea and vomiting) 4 Days Qty: 12 0RF Referrals Follow up/Referrals: Terri Joseph PA [Primary Care Provider] - See instructions Activity Restrictions/Add. Instructions Additional Instructions/Restrictions: The emergency department today, we have given a steroid shot and a pain medication shot. The steroid should continue to be effective for multiple days in treating her sore throat. It will take several hours to start to reach maximum effect. I have also prescribed a nasal spray as well as a as needed medication for sore throat. I would continue to take Tylenol for your pain. Your COVID test and flu test were negative. Please return with any new or worsening symptoms. Clinical Impressions Clinical Impression: Upper respiratory infection, viral Discharge ED Provider: Huseyin Marquez General Adult HPI General Chief complaint: Upper Respiratory Infection Stated complaint: sore throat, dizzy, ear pain Time Seen by Provider: 03/06/24 07:53 History of Present Illness HPI narrative: This patient presents for evaluation of sore throat, bilateral earache Onset: Gradual Location: Bilateral ears, back of throat Duration: Approximately 24 hours Characteristic: Dull, pressure Alleviating/Aggrivating Factors: None identified none Radiation: Timing: Constant Severity: Mild Associated symptoms: Reported temperature 100.4 yesterday ROS: Positive for sick contacts with similar symptoms, not tested for any etiology, denies cough, chest pain, shortness of breath, nausea, vomiting, p.o. intolerance, patient does occasionally feel slightly dizzy but no syncope or presyncope or gait disturbance or vision changes, no recent travel, no history of DVT or PE. Denies lung conditions. Please note that above description of symptoms, in this electronic medical record under categorization of recalled from ER triage doctor by RN are reflective of an initial nursing assessment, however, is not reflective of my full history and physical exam that was personally taken and clarified. Consequentially, this preceding description of symptoms, which may include the patient's categorized chief complaint in the EMR, do not reflect my personal clinical impression, and the ultimate description of history of present illness and patient stated complaints should be deferred to this section of the note. Unless stated otherwise or congruent with this section of the note, additional signs, symptoms, or incongruence should be interpreted as inaccurate with my clinical impression. Related Data Previous Rx's Medication Instructions Recorded ondansetron 4 mg disintegrating 4 mg PO Q8H PRN nausea and 06/28/23 tablet vomiting 4 days #12 tabs amlodipine 5 mg tablet See Rx Instructions .Route 11/24/23 .COMPLEX #90 tabs atorvastatin 10 mg tablet See Rx Instructions .Route 11/24/23 .COMPLEX #90 tabs cholecalciferol (vitamin D3) 25 See Rx Instructions .Route 11/24/23 mcg (1,000 unit) tablet .COMPLEX #90 tabs ergocalciferol (vitamin D2) 1,250 See Rx Instructions .Route 01/09/24 mcg (50,000 unit) capsule .COMPLEX #14 caps hydrocodone 10 mg-acetaminophen 1 tab PO TID 30 days #90 tabs 01/18/24 325 mg tablet cyanocobalamin (vitamin B-12) 5,000 mcg PO DAILY #90 tabs 01/23/24 5,000 mcg disintegrating tablet fluticasone propionate 50 1 spray intranasal DAILY 03/06/24 mcg/actuation nasal congestion 2 weeks #16 grams spray,suspension (Allergy Relief (fluticasone)) lidocaine HCl 2 % mucosal solution 1 applic mucous membrane Q8H PRN 03/06/24 (Lidocaine Viscous) pain 5 days #100 mL Allergies Allergy/AdvReac Type Severity Reaction Status Date / Time lisinopril Allergy Severe Anaphylaxis Verified 01/18/24 09:50 sulfamethoxazole AdvReac Severe Hives Verified 01/18/24 09:50 [From Bactrim] trimethoprim [From Bactrim] AdvReac Severe Hives Verified 01/18/24 09:50 PFSH PFS Disclaimer: The information contained in this section may have been updated after the patient was seen, as this information can be updated by other users. Medical History Impacted cerumen of both ears Gastroenteritis Syncope, vasovagal Urinary incontinence Elbow pain, right Anxiety Hypertension Knee pain, acute Hypokalemia Gastroenteritis COVID-19 Ear ache Bilateral otitis media Warts of foot Abdominal pain Pain in right foot Viral illness Influenza Toe sprain Injury of great toe Bronchitis Otitis media Arthritic-like pain Laceration of right thumb Vitamin B12 deficiency (~03/30/18) Vitamin D deficiency (~03/30/18) Hyperlipidemia (~03/30/18) UTI (urinary tract infection) Surgical History History of bunionectomy of right great toe History of right elbow replacement S/P left rotator cuff repair History of hysterectomy History of back surgery History of section History of cholecystectomy Family History Other Cancer Diabetes Hyperlipidemia Hypertension Thyroid disorder Social History Smoking Status: Never smoker alcohol intake: never substance use type: denies use current occupational status: other Travel in the last 8 weeks: None household members: family housing: house ROS Obtained: Yes other As per HPI Physical Exam General General appearance: alert and in no apparent distress Head Head exam: atraumatic and normocephalic Eye Eye exam: Present normal appearance Neck Neck exam: Present normal inspection Chest Chest inspection: Present normal inspection and symmetric chest wall rise Respiratory Respiratory exam: Present normal lung sounds bilaterally; Absent respiratory distress Cardiovascular Cardiovascular exam: Present regular rate and normal rhythm Abdominal Exam Abdominal exam: Present soft Neurological Exam Neurological exam: Present alert and oriented X3 Psychiatric Psychiatric exam: Present normal affect and normal mood Skin Skin exam: Present warm and dry Other Other exam information: Mild oropharyngeal erythema, TMs bulging bilaterally, however no erythema or effusion, symmetric, sinus tenderness to palpation, no trismus, dysphonia, or increased work of breathing Medical Decision Making Medical Records Medical records reviewed: Yes I reviewed the patient's medical records. Chava Inquiry Pt receiving controlled substance: No Vital Signs: 03/06/24 07:50 03/06/24 08:59 Temperature 98.1 F 98.1 F Temperature Source Oral Oral Pulse Rate 95 H Pulse Rate [Radial] 95 H Respiratory Rate 16 16 Blood Pressure 133/71 Blood Pressure [Right Arm] 128/79 Blood Pressure Mean [Right Arm] 95 Blood Pressure Source Automatic Cuff Blood Pressure Source [Right Arm] Automatic Cuff Blood Pressure Position Sitting Blood Pressure Position [Right Arm] Sitting 02 Sat by Pulse Oximetry 99 Oxygen Delivery Method Room Air Room Air Lab Data Lab Results 03/06/24 07:58: SARS-CoV-2 (PCR) Not detected, Influenza A Untype (PCR) Not detected, Influenza Type B (PCR) Not detected Orders (Tests/Meds): ED MEDICATIONS Discontinued Medications Generic Name Dose Route Start Last Admin Trade Name Bariq PRN Reason Stop Dose Admin Dexamethasone Sodium Phosphate 4 mg 03/06/24 08:11 03/06/24 08:19 Dexamethasone 4mg/Ml 1ml Vial IM 03/06/24 08:12 4 mg ONCE ONE Administration Ketorolac Tromethamine 15 mg 03/06/24 08:11 03/06/24 08:19 Ketorolac 30mg/Ml Vial IM 03/06/24 08:12 15 mg ONCE ONE Administration ORDERS Category Date Time Status Rapid PCR Covid and Flu A/B Stat Lab 03/06/24 07:58 Completed Medical Decision Narrative: Patient with history and exam per above presenting for evaluation of sore throat, earache, sinus pressure Diagnoses considered include viral URI, bacterial URI, otitis media, no clinical evidence or historical features to suggest pneumonia, Estuardo's angina, RPA, epiglottitis, or other acute surgical pathology to warrant further investigation ED workup and treatment included: ED MEDICATIONS Discontinued Medications Generic Name Dose Route Start Last Admin Trade Name Bariq PRN Reason Stop Dose Admin Dexamethasone Sodium Phosphate 4 mg 03/06/24 08:11 03/06/24 08:19 Dexamethasone 4mg/Ml 1ml Vial IM 03/06/24 08:12 4 mg ONCE ONE Administration Ketorolac Tromethamine 15 mg 03/06/24 08:11 03/06/24 08:19 Ketorolac 30mg/Ml Vial IM 03/06/24 08:12 15 mg ONCE ONE Administration ORDERS Category Date Time Status Rapid PCR Covid and Flu A/B Stat Lab 03/06/24 07:58 Completed Labs were independently interpreted by me, significant for COVID and flu testing negative My clinical impression at this time is most consistent with unspecified viral URI, sinusitis, uncomplicated, possible concurrent seasonal allergies I discussed my clinical impression with patient and answered all questions. At this time, the evidence for any other entities in the differential is insufficient to warrant any further testing or ED observation. This was explained to the patient. The patient was advised that persistent or worsening symptoms require further evaluation. I confirmed the patient's understanding of this discussion. Critical Care Critical Care Time Critical Care Time: No
[2024-03-06 08:01] LABS: Coronavirus 19, PCR Not Detected (NotDetected); Influenza A, PCR Not Detected (NotDetected); Influenza B, PCR Not Detected (NotDetected)
--- NOTE | 2024-03-06 08:03 | PC.NURSE ---
in room talking with patient at this time.
[2024-03-06] MEDS: DEXAMETHASONE 4MG/ML 1ML VIAL 4 MG IM (08:19)
[2024-03-06] MEDS: KETOROLAC 30MG/ML VIAL 15 MG IM (08:19)
[2024-03-06 08:59] VITALS: BP 133/71; PULSE 95; RESP 16; TEMP 36.7; O2SAT 99
== END 2024-03-06 08:59 | disposition home or self-care (01) ==
PROVIDERS: Emergency Provider Emergency Medicine; PCP Physician Assistant
DX: H92.03 Otalgia, bilateral (principal); J06.9 Acute upper respiratory infection, unspecified; B34.9 Viral infection, unspecified
CPT/HCPCS: 87636; 96372; 99283

== ENCOUNTER 2024-03-29 13:25 | Outpatient (CLI) | payer MEDICARE, OTHER, SELFPAY ==
--- NOTE | 2024-03-29 13:35 | XR_ITS ---
FINAL REPORT CLINICAL HISTORY: right shoulder pain COMPARISON: None FINDINGS: RIGHT SHOULDER: 3 views of the right shoulder were obtained. There is no acute fracture or dislocation. There is mild acromioclavicular and glenohumeral degenerative change. There is a 6 mm probable loose body adjacent to the coracoid process. IMPRESSION: No acute fracture Mild degenerative change, with a 6 mm probable loose body adjacent to the coracoid process. Reviewed, Interpreted and Dictated by Manuel Apodaca III, MD Transcribed by Gunjan Yeh Authenticated and [facility]
== END 2024-03-29 23:59 | disposition home or self-care (01) ==
LOC: RAD 13:27
PROVIDERS: PCP Physician Assistant; Visit Provider Physician Assistant
DX: M25.511 Pain in right shoulder (principal)
CPT/HCPCS: 73030

== ENCOUNTER 2024-05-05 10:52 | Emergency (ER) | payer MEDICARE, OTHER, SELFPAY ==
[2024-05-05] VITALS (8 sets, daily range): BP systolic 121–140; BP diastolic 59–78; PULSE 55–87; RESP 13–18; TEMP 36.6–36.8; O2SAT 97–100; BMI 27.7
--- NOTE | 2024-05-05 11:16 | ED_ITS ---
Discharge Plan Disposition Patient Disposition: Home, Self-Care Prescriptions Prescriptions: New ondansetron 4 mg tablet,disintegrating 4 mg PO Q8H PRN (Reason: nausea and vomiting) 4 Days Qty: 12 0RF No Action hydrocodone-acetaminophen 10-325 mg tablet 1 tab PO TID 30 Days Qty: 90 0RF hydrocodone-acetaminophen 10-325 mg tablet 1 tab PO TID PRN (Reason: pain) Qty: 90 0RF benzonatate 200 mg capsule 200 mg PO BID PRN (Reason: cough) Qty: 20 0RF amoxicillin 500 mg tablet 500 mg PO BID 10 Days Qty: 20 0RF ondansetron HCl 4 mg tablet 4 mg PO Q8H PRN (Reason: nausea and vomiting) Qty: 30 0RF ergocalciferol (vitamin D2) 1,250 mcg (50,000 unit) capsule See Rx Instructions .ROUTE .COMPLEX Qty: 14 2RF Dose Instruction: TAKE 1 CAPSULE BY MOUTH ONCE WEEKLY Rx Instructions: TAKE 1 CAPSULE BY MOUTH ONCE WEEKLY cyanocobalamin (vitamin B-12) 5,000 mcg tablet,disintegrating 5,000 mcg PO DAILY Qty: 90 0RF amlodipine 5 mg tablet See Rx Instructions .ROUTE .COMPLEX Qty: 90 0RF Dose Instruction: TAKE ONE TABLET BY MOUTH ONCE A DAY Rx Instructions: TAKE ONE TABLET BY MOUTH ONCE A DAY atorvastatin 10 mg tablet See Rx Instructions .ROUTE .COMPLEX Qty: 90 0RF Dose Instruction: TAKE ONE TABLET BY MOUTH AT BEDTIME Rx Instructions: TAKE ONE TABLET BY MOUTH AT BEDTIME cholecalciferol (vitamin D3) 25 mcg (1,000 unit) tablet See Rx Instructions .ROUTE .COMPLEX Qty: 90 2RF Dose Instruction: TAKE ONE TABLET BY MOUTH ONCE A DAY Rx Instructions: TAKE ONE TABLET BY MOUTH ONCE A DAY fluticasone propionate [Allergy Relief (fluticasone)] 50 mcg/actuation spray,suspension 1 spray intranasal DAILY 14 Days Qty: 16 0RF Rx Instructions: administer into each nostril Referrals Follow up/Referrals: Terri Joseph PA [Primary Care Provider] - See instructions Activity Restrictions/Add. Instructions Additional Instructions/Restrictions: At this time it was felt you are safe to be discharged home. If new or worsening symptoms please do not hesitate to return the emergency department. Today your potassium was a little bit low and we gave it back to you, it is likely secondary to the vomiting. Please take your antinausea medications as prescribed and if symptoms persist past 10 days follow-up with your family doctor. Clinical Impressions Clinical Impression: Vomiting, Hypokalemia Instructions Patient Instructions: DI for Diarrhea and Traveler's Diarrhea -- Adult, DI for Diarrhea and Traveler's Diarrhea -- Child, DI for Nausea -- Adult, DI for Nausea -- Child Discharge ED Provider: Darren Dyer General Adult HPI General Chief complaint: Nausea/Vomiting/Diarrhea Stated complaint: lightheaded, abd pain, unable eat/drink Time Seen by Provider: 05/05/24 10:58 Mode of Arrival: Ambulatory Source of Information: Patient Limitations: No Limitations Description of Symptoms (Recalled from ER Triage Doc. by RN): pt c/o N/V, generalized abd pain that is cramping in nature and 3/10, and being light headed. pt reports this has been ongoing since 05/01 and she has been unable to eat. History of Present Illness HPI narrative: Patient is a 74-year-old female with no pertinent past medical history presents emergency department for evaluation of vomiting. History is obtained by patient at bedside. She had a dinner green party over the weekend for which almost everyone who attended has become sick with similar symptoms. Onset for her was Tuesday, nonbloody nonbilious vomiting and associated nausea. She has had decreased urine output due to inability to tolerate p.o. slight soreness across her abdomen from retching however no abdominal pain at rest, no chest pain, no other acute complaints at this time. Related Data Previous Rx's Medication Instructions Recorded ergocalciferol (vitamin D2) 1,250 See Rx Instructions .Route 01/09/24 mcg (50,000 unit) capsule .COMPLEX #14 caps cyanocobalamin (vitamin B-12) 5,000 mcg PO DAILY #90 tabs 01/23/24 5,000 mcg disintegrating tablet fluticasone propionate 50 1 spray intranasal DAILY 03/06/24 mcg/actuation nasal congestion 2 weeks #16 grams spray,suspension (Allergy Relief (fluticasone)) amlodipine 5 mg tablet See Rx Instructions .Route 03/09/24 .COMPLEX #90 tabs amoxicillin 500 mg tablet 500 mg PO BID 10 days #20 tabs 03/09/24 atorvastatin 10 mg tablet See Rx Instructions .Route 03/09/24 .COMPLEX #90 tabs benzonatate 200 mg capsule 200 mg PO BID PRN cough #20 caps 03/09/24 cholecalciferol (vitamin D3) 25 See Rx Instructions .Route 03/09/24 mcg (1,000 unit) tablet .COMPLEX #90 tabs ondansetron HCl 4 mg tablet 4 mg PO Q8H PRN nausea and 03/09/24 vomiting #30 tabs hydrocodone 10 mg-acetaminophen 1 tab PO TID 30 days #90 tabs 03/14/24 325 mg tablet hydrocodone 10 mg-acetaminophen 1 tab PO TID PRN pain #90 tabs 03/14/24 325 mg tablet ondansetron 4 mg disintegrating 4 mg PO Q8H PRN nausea and 05/05/24 tablet vomiting 4 days #12 tabs Allergies Allergy/AdvReac Type Severity Reaction Status Date / Time lisinopril Allergy Severe Anaphylaxis Verified 05/05/24 11:05 sulfamethoxazole AdvReac Severe Hives Verified 05/05/24 11:05 [From Bactrim] trimethoprim [From Bactrim] AdvReac Severe Hives Verified 05/05/24 11:05 [facility] Disclaimer: The information contained in this section may have been updated after the patient was seen, as this information can be updated by other users. Medical History Impacted cerumen of both ears Gastroenteritis Syncope, vasovagal Urinary incontinence Elbow pain, right Anxiety Hypertension Knee pain, acute Hypokalemia Gastroenteritis COVID-19 Ear ache Bilateral otitis media Warts of foot Abdominal pain Pain in right foot Viral illness Influenza Toe sprain Injury of great toe Bronchitis Otitis media Arthritic-like pain Laceration of right thumb Vitamin B12 deficiency (~03/30/18) Vitamin D deficiency (~03/30/18) Hyperlipidemia (~03/30/18) UTI (urinary tract infection) Surgical History History of bunionectomy of right great toe History of right elbow replacement S/P left rotator cuff repair History of hysterectomy History of back surgery History of section History of cholecystectomy Family History Other Cancer Diabetes Hyperlipidemia Hypertension Thyroid disorder Social History Smoking Status: Never smoker alcohol intake: never substance use type: denies use current occupational status: other Travel in the last 8 weeks: None household members: family housing: house ROS Obtained: Yes Systems reviewed as appropriate & no additional complaints except as documented Physical Exam General General appearance: alert and in no apparent distress Head Head exam: atraumatic and normocephalic Eye Eye exam: Present PERRL ENT ENT exam: Present mucous membranes moist Neck Neck exam: Present normal inspection Chest Chest inspection: Present normal inspection and symmetric chest wall rise Respiratory Respiratory exam: Present normal lung sounds bilaterally; Absent respiratory distress Cardiovascular Cardiovascular exam: Present regular rate and normal rhythm Abdominal Exam Abdominal exam: Present soft and tenderness (Slight tenderness over the the epigastrium); Absent guarding or rebound Extremities Exam Extremities exam: Present normal inspection Neurological Exam Neurological exam: Present alert Psychiatric Psychiatric exam: Present normal affect Skin Skin exam: Present warm and dry Medical Decision Making Chava Inquiry Pt receiving controlled substance: No Vital Signs: 05/05/24 10:58 05/05/24 11:00 05/05/24 11:01 Temperature 98.3 F Temperature Source Oral Pulse Rate 87 72 Pulse Rate [Left] 79 Respiratory Rate 18 Blood Pressure 140/78 139/75 Blood Pressure [Right Arm] 140/78 Blood Pressure Mean Blood Pressure Mean [Right Arm] 98 Blood Pressure Source [Right Arm] Automatic Cuff Blood Pressure Position [Right Arm] Sitting 02 Sat by Pulse Oximetry 97 99 97 Oxygen Delivery Method Room Air 05/05/24 11:30 05/05/24 12:00 05/05/24 12:30 Temperature Temperature Source Pulse Rate 65 55 L 67 Pulse Rate [Left] Respiratory Rate Blood Pressure 121/61 135/64 132/72 Blood Pressure [Right Arm] Blood Pressure Mean 81 Blood Pressure Mean [Right Arm] Blood Pressure Source [Right Arm] Blood Pressure Position [Right Arm] 02 Sat by Pulse Oximetry 98 100 100 Oxygen Delivery Method 05/05/24 13:00 Temperature Temperature Source Pulse Rate 58 L Pulse Rate [Left] Respiratory Rate Blood Pressure 134/59 L Blood Pressure [Right Arm] Blood Pressure Mean Blood Pressure Mean [Right Arm] Blood Pressure Source [Right Arm] Blood Pressure Position [Right Arm] 02 Sat by Pulse Oximetry 99 Oxygen Delivery Method Lab Data Lab Results 05/05/24 10:59: WBC 4.3 L, RBC 4.28, Hgb 13.3, Hct 41.4, MCV 96.5, MCH 30.9, MCHC 32.1, RDW 13.4, Plt Count 278, MPV 9.8, Neut % (Auto) 50.7, Lymph % (Auto) 37.7, [place] % (Auto) 8.0, Eos % (Auto) 2.6, Baso % (Auto) 1.1, Neut # (Auto) 2.2, Lymph # (Auto) 1.6, [place] # (Auto) 0.3, Eos # (Auto) 0.1, Baso # (Auto) 0.1, Sodium 142, Potassium 3.2 L, Chloride 104, Carbon Dioxide 28, Anion Gap 13.2, BUN 13, Creatinine 0.80, Estimated Creat Clear 62, Estimated GFR 70, Est GFR ( Amer) 85, Glucose 92, Calcium 9.7, Total Bilirubin 0.5, AST 41 H, ALT 31, Alkaline Phosphatase 73, Total Protein 7.9, Albumin 4.6, Globulin 3.3 H, Albumin/Globulin Ratio 1.4, Lipase 54 05/05/24 10:59 05/05/24 10:59 Orders (Tests/Meds): ED MEDICATIONS Generic Name Dose Route Start Last Admin Trade Name Freq PRN Reason Stop Dose Admin Potassium Chloride 40 meq 05/05/24 13:03 Potassium Chloride 20meq Tab PO 05/05/24 13:04 ONCE ONE Discontinued Medications Generic Name Dose Route Start Last Admin Trade Name Freq PRN Reason Stop Dose Admin Lactated Ringer's 1,000 mls @ 999 mls/hr 05/05/24 11:14 05/05/24 11:18 Lactated Ringer's 1000 Ml Bag IV 05/05/24 12:14 999 mls/hr .Q1H1M ONE Administration Ondansetron HCl 4 mg 05/05/24 11:14 05/05/24 11:18 Ondansetron 4mg/2ml Vial IV 05/05/24 11:15 4 mg ONCE ONE Administration ORDERS Category Date Time Status CBC w/Auto Diff [Complete Blood Count Auto Diff] Stat Lab 05/05/24 10:59 Completed CMP [Comprehensive Metabolic Panel] Stat Lab 05/05/24 10:59 Completed Lipase Stat Lab 05/05/24 10:59 Completed Medical Decision Narrative: In summary patient is a 74-year-old female with past medical history described above who presents emergency department for evaluation of vomiting. Patient is hemodynamically stable nontoxic-appearing upon arrival, afebrile. Differential diagnosis includes viral syndrome, pancreatitis, urinary tract infection, among others. Workup be conducted with hematologic labs, urinalysis. Initial interventions include Zofran, crystalloid bolus. Patient has nonfocal exam and only slight tenderness in the epigastric region therefore imaging of the abdomen was considered but will be deferred. Initial workup reviewed by me, hematologic labs are largely nonactionable, mild hyponatremia which will be repleted orally and is consistent with vomiting. Patient underwent p.o. trial with successful. Given this patient is appropriate for discharge at this time. Critical Care Critical Care Time Critical Care Time: No
[2024-05-05] MEDS: LACTATED RINGERS 1000ML 1,000 ML 999 ML IV (11:18)
[2024-05-05] MEDS: ONDANSETRON 4MG/2ML VIAL 4 MG IV (11:18)
[2024-05-05 11:27] LABS: Basophils # 0.1 K/mm3 (0-0.2); Basophils % 1.1 % (0.1-2.0); Eosinophils # 0.1 K/mm3 (0.0-0.4); Eosinophils % 2.6 % (0.1-12.0); Hematocrit 41.4 % (37.0-47.0); Hemoglobin 13.3 g/dL (12.2-16.2); Lymphocytes # 1.6 K/mm3 (0.7-4.5); Lymphocytes % 37.7 % (10-50); Mean Corpuscular HGB Conc 32.1 g/dL (31.8-35.4); Mean Corpuscular Hemoglobin 30.9 pg (27.0-31.2); Mean Corpuscular Volume 96.5 fl (81-99); Mean Platelet Volume 9.8 fl (7.4-10.4); Monocytes # 0.3 K/mm3 (0.1-1.0); Neutrophils # 2.2 K/mm3 (1.8-7.8); Neutrophils % 50.7 % (37.0-80.0); Platelet Count 278 K/mm3 (142-424); Red Blood Count 4.28 M/mm3 (4.20-5.40); Red Cell Distribution Width 13.4 % (11.5-17.5); White Blood Count 4.3 K/mm3 (4.8-10.8)
[2024-05-05 11:37] LABS: Chloride 104 mmol/L (98-107)
[2024-05-05 11:38] LABS: Potassium 3.2 mmoL/L (3.5-5.1); Sodium 142 mmol/L (136-145)
[2024-05-05 11:40] LABS: Alanine Aminotransferase 31 U/L (12-78); Alkaline Phosphatase 73 U/L (38-126); Anion Gap 13.2 mEq/L (5-15); Aspartate Amino Transferase 41 U/L (14-36); Bilirubin,Total 0.5 mg/dl (0.2-1.3); Blood Urea Nitrogen 13 mg/dl (7-17); Carbon Dioxide 28 mmol/L (22.0-30.0); Creatinine Clearance Estimated 62 mL/min (50-200); Estimated Glomerular Filt Rate 70 ml/min (>60); GFR (African American) 85 ML/MIN (>60); Lipase 54 U/L (23-300)
[2024-05-05 11:41] LABS: Albumin Level 4.6 g/dl (3.5-5.0); Albumin/Globulin Ratio 1.4 (1.1-1.8); Calcium 9.7 mg/dl (8.4-10.2); Globulin 3.3 g/dL (1.3-3.2); Glucose 92 mg/dl (74-100); Total Protein,Serum 7.9 g/dl (6.3-8.2)
--- NOTE | 2024-05-05 12:45 | PC.NURSE ---
Rounded on patient, no needs voiced at this time.
--- NOTE | 2024-05-05 12:55 | PC.NURSE ---
pt reports no burning or pain with urination. pt asking to eat lunch. lunch tray ordered for pt.
[2024-05-05] MEDS: POTASSIUM CHLORIDE 20MEQ TAB 40 MEQ PO (13:08)
== END 2024-05-05 13:26 | disposition home or self-care (01) ==
PROVIDERS: Emergency Provider Emergency Medicine; PCP Physician Assistant
DX: E87.6 Hypokalemia (principal); R10.817 Generalized abdominal tenderness; R11.2 Nausea with vomiting, unspecified; I10 Essential (primary) hypertension; E78.5 Hyperlipidemia, unspecified
CPT/HCPCS: 80053; 83690; 85025; 96361; 96374; 99284; J2405; J7120

== ENCOUNTER 2024-06-04 14:13 | Outpatient (CLI) | payer MEDICARE, OTHER, SELFPAY ==
--- NOTE | 2024-06-04 14:17 | XR_ITS ---
FINAL REPORT CLINICAL HISTORY: right knee pain COMPARISON: 06/15/2023 FINDINGS: Four views of the right knee show no evidence of an acute, displaced fracture or dislocation of the visualized bony architecture. There are advanced tricompartmental degenerative changes. There is a small joint effusion. Degenerative lateral subluxation is noted. IMPRESSION: Advanced degenerative changes and small joint effusion. Reviewed, Interpreted and Dictated by Robert Schofield MD Transcribed by Peyton Chand Authenticated and [facility]
--- NOTE | 2024-06-04 14:36 | MR_ITS ---
FINAL REPORT TECHNIQUE: Multiplanar MR without contrast CLINICAL HISTORY: right shoulder pain and decreased ROM UNABLE TO SUPINATE HAND FINDINGS: Moderate send artifact limits the exam. Marrow signal: Unremarkable Glenohumeral joint: Severe degenerative changes. Moderate sized joint effusion. No loose bodies. AC joint: No obvious impingement. Moderate arthropathy. Small amount of fluid is seen in the subacromial bursa presumably related to bursitis. Rotator cuff: Small partial tear of the distal supraspinatus tendon. High-grade partial tear of the subscapularis tendon. Labrum: Labral degeneration without discrete tear. Biceps tendon: Intra-articular long head biceps tendon intact. IMPRESSION: Moderate degenerative changes and moderate size joint effusion. Partial-thickness rotator cuff tears without evidence of complete tear. Reviewed, Interpreted and Dictated by Robert Schofield MD Transcribed by Ros Berry Authenticated and [facility]
== END 2024-06-04 23:59 | disposition home or self-care (01) ==
LOC: RAD 14:14
PROVIDERS: PCP Physician Assistant; Visit Provider Physician Assistant
DX: M17.11 Unilateral primary osteoarthritis, right knee (principal); M25.511 Pain in right shoulder
CPT/HCPCS: 73221; 73564

== ENCOUNTER 2024-07-30 15:53 | Emergency (ER) | payer MEDICARE, OTHER, SELFPAY ==
[2024-07-30 16:00] VITALS: BP 138/70; PULSE 89; RESP 18; TEMP 37.2; O2SAT 97; BMI 29.0
--- NOTE | 2024-07-30 16:06 | ED_ITS ---
Discharge Plan Disposition Patient Disposition: Home, Self-Care Condition: Good Prescriptions Prescriptions: New amoxicillin 875 mg tablet 875 mg PO Q12H Qty: 20 0RF benzonatate 100 mg capsule 100 mg PO TIDP PRN (Reason: Cough) Qty: 30 0RF methylprednisolone 4 mg Tablets,Dose Pack 4 mg PO DIRECTED 6 Days Qty: 21 0RF Rx Instructions: Take 1 pack as directed for 6 days No Action atorvastatin 10 mg tablet 10 mg PO DAILY amlodipine 5 mg tablet 5 mg PO DAILY hydrocodone-acetaminophen 10-325 mg tablet 1 tab PO DAILY cholecalciferol (vitamin D3) 25 mcg (1,000 unit) tablet 25 mcg PO DAILY Referrals Follow up/Referrals: Morro Bowers DO [Primary Care Provider] - See instructions Activity Restrictions/Add. Instructions Additional Instructions/Restrictions: Drink plenty of fluids. Take tylenol or ibuprofen for pain or fever. Take the medications as directed. Follow up with your regular doctor. GO TO THE ER FOR ANY WORSENING SYMPTOMS Clinical Impressions Clinical Impression: Pharyngitis, Acute viral syndrome Instructions Patient Instructions: Sore Throat, DI for Pharyngitis/Tonsillopharyngitis -- Adult Print Language Print Language: Nigerien Discharge ED Provider: Uday Obregon [facility] [place] HPI General Stated complaint: Sore throat,dizziness Time Seen by Provider: 07/30/24 16:05 Related Data Home Medications ?Medication ?Instructions ?Recorded ?Confirmed amlodipine 5 mg tablet 5 mg PO DAILY 07/30/24 07/30/24 atorvastatin 10 mg tablet 10 mg PO DAILY 07/30/24 07/30/24 cholecalciferol (vitamin D3) 25 25 mcg PO DAILY 07/30/24 07/30/24 mcg (1,000 unit) tablet hydrocodone 10 mg-acetaminophen 1 tab PO DAILY 07/30/24 07/30/24 325 mg tablet Previous Rx's ?Medication ?Instructions ?Recorded amoxicillin 875 mg tablet 875 mg PO Q12H #20 tabs 07/30/24 benzonatate 100 mg capsule 100 mg PO TIDP PRN Cough #30 caps 07/30/24 methylprednisolone 4 mg tablets in 4 mg PO DIRECTED 6 days #21 tabs 07/30/24 a dose pack Allergies Allergy/AdvReac Type Severity Reaction Status Date / Time lisinopril Allergy Severe Anaphylaxis Verified 07/17/24 09:08 sulfamethoxazole AdvReac Severe Hives Verified 07/17/24 09:08 [From Bactrim] trimethoprim [From Bactrim] AdvReac Severe Hives Verified 07/17/24 09:08 [facility] Disclaimer: The information contained in this section may have been updated after the patient was seen, as this information can be updated by other users. Medical History Impacted cerumen of both ears Gastroenteritis Syncope, vasovagal Urinary incontinence Elbow pain, right Anxiety Hypertension Knee pain, acute Hypokalemia Gastroenteritis COVID-19 Ear ache Bilateral otitis media Warts of foot Abdominal pain Pain in right foot Viral illness Influenza Toe sprain Injury of great toe Bronchitis Otitis media Arthritic-like pain Laceration of right thumb Vitamin B12 deficiency (~03/30/18) Vitamin D deficiency (~03/30/18) Hyperlipidemia (~03/30/18) UTI (urinary tract infection) Surgical History History of bunionectomy of right great toe History of right elbow replacement S/P left rotator cuff repair History of hysterectomy History of back surgery History of section History of cholecystectomy Family History Other Cancer Diabetes Hyperlipidemia Hypertension Thyroid disorder Social History Smoking Status: Never smoker alcohol intake: never substance use type: denies use current occupational status: other Travel in the last 8 weeks: None household members: family housing: house ROS Obtained: Yes All systems reviewed & no additional complaints except as documented Constitutional Constitutional: Reports chills and Reports fever(s) Eyes Eyes: Denies eye discharge ENT Ears, Nose, Mouth, and Throat: Reports as per HPI Cardiovascular Cardiovascular: Denies chest pain Respiratory Respiratory: Denies chest congestion and Reports cough Gastrointestinal Gastrointestingal: Reports nausea; Denies abdominal pain, constipation, cramping, diarrhea or vomiting Musculoskeletal Musculoskeletal: Denies arthralgias Integumentary/Breasts Skin/Breast: Denies rash Neurologic Neurologic: Denies paresthesias Physical Exam General General appearance: alert and in no apparent distress Head Head exam: atraumatic, normocephalic and normal inspection Eye Eye exam: Present normal appearance, PERRL and EOMI ENT ENT exam: Present mucous membranes moist and normal external ear exam Expanded ENT Exam TM/Canal exam: Bilateral TM: erythema and bulging Nose exam: Absent sinus tenderness Mouth exam: Present normal external inspection; Absent drooling Teeth exam: Present normal inspection Throat exam: Present tonsillar erythema, tonsillomegaly and tonsillar exudate Neck Neck exam: Present normal inspection, full ROM and trachea midline; Absent tenderness, meningismus or lymphadenopathy Chest Chest inspection: Present normal inspection and symmetric chest wall rise; Absent tenderness Respiratory Respiratory exam: Present normal lung sounds bilaterally; Absent respiratory distress, wheezes, stridor or accessory muscle use Cardiovascular Cardiovascular exam: Present regular rate and normal rhythm; Absent systolic murmur or diastolic murmur Abdominal Exam Abdominal exam: Present soft and normal bowel sounds; Absent distention, tenderness, guarding, rebound or rigidity Extremities Exam Extremities exam: Present normal inspection and normal capillary refill; Absent calf tenderness Back Exam Back exam: Present normal inspection and full ROM; Absent tenderness, CVA tenderness (R) or CVA tenderness (L) Neurological Exam Neurological exam: Present alert, oriented X3 and CN II-XII intact Psychiatric Psychiatric exam: Present normal affect and normal mood Skin Skin exam: Present warm, dry, intact and normal color Medical Decision Making Medical Records Medical records reviewed: No I reviewed the patient's medical records. Chava Inquiry Pt receiving controlled substance: No Lab Data Lab results reviewed: Yes I reviewed the patient's lab results.
[2024-07-30 16:15] LABS: UTC Strep Screen (Rapid) Negative (Negative)
[2024-07-30 16:44] VITALS: BP 138/70; PULSE 89; RESP 18; TEMP 37.2; O2SAT 97
== END 2024-07-30 16:51 | disposition home or self-care (01) ==
PROVIDERS: Emergency Provider Nurse Practitioner Family; PCP Internal Medicine
DX: J02.9 Acute pharyngitis, unspecified (principal); R42 Dizziness and giddiness; B34.9 Viral infection, unspecified
CPT/HCPCS: 87635; 87880; 99212; 99214; G0463

== ENCOUNTER 2024-08-07 09:20 | Outpatient (CLI) | payer MEDICARE, OTHER, SELFPAY ==
--- NOTE | 2024-08-07 09:21 | XR_ITS ---
FINAL REPORT TECHNIQUE: Bone densitometry calculations of the lumbar spine and left hip were obtained. CLINICAL HISTORY: post menopausal female FINDINGS: Using the left forearm, the bone mineral density of the spine is 0.422 g/cm2, corresponding to T-score of -2.9. Using the right hip, the bone mineral density of the femoral neck is 0.775 g/cm2, corresponding to a T-score of -1.4. NOTE: T-score: Standard deviation compared with peak bone mass of young adult mean. *Following the recommendations of the International Society of Bone densitometry, classification of hip BMD is based on the lower of two T-scores; total hip or femoral neck. IMPRESSION: Diminished bone mineral density of the lumbar spine consistent with osteopenia. Diminished bone mineral density of the left forearm, consistent with osteoporosis. Reviewed, Interpreted and Dictated by Robert Schofield MD Transcribed by Gunjan Yeh Authenticated and . [facility] [place]
--- NOTE | 2024-08-07 09:21 | MM_ITS ---
PROCEDURE INFORMATION: Exam: MG Bilateral Screening 3D Mammography Exam date and time: 08/07/2024 9:38 AM Age: 74 years old Clinical indication: Screening examination TECHNIQUE: Imaging protocol: Bilateral Screening tomosynthesis and 2D mammography including computer-aided detection (CAD) when performed. COMPARISON: 1. MG MM DIG SCREENING MAMM BI W/CAD 12/15/2022 7:56 AM 2. MG MM DIG SCREENING MAMM BI W/CAD 01/15/2021 9:33 AM FINDINGS: MAMMOGRAPHY: Breast composition: There are scattered areas of fibroglandular density. Mass: None. Architectural distortion: None. Calcifications: No suspicious calcifications. Asymmetric density: None. Skin thickening: None. Axillary adenopathy: None. Other findings: . IMPRESSION: No mammographic evidence of malignancy. Annual screening is recommended unless otherwise clinically indicated. ASSESSMENT: BI-RADS Category 1: Negative.
== END 2024-08-07 23:59 | disposition home or self-care (01) ==
LOC: RAD 09:21
PROVIDERS: PCP Internal Medicine; Visit Provider Physician Assistant
DX: Z12.31 Encounter for screening mammogram for malignant neoplasm of breast (principal); Z78.0 Asymptomatic menopausal state
CPT/HCPCS: 77063; 77067; 77080

== ENCOUNTER → 2024-08-14 06:32 | Outpatient (CLI) | payer MEDICARE, OTHER, SELFPAY | LOC: SL 08-17 06:33 | PROVIDERS: PCP Physician Assistant; Visit Provider Physician Assistant | DX: G47.33 Obstructive sleep apnea (adult) (pediatric) (principal); G47.36 Sleep related hypoventilation in conditions classified elsewhere | CPT/HCPCS: G0399 ==

== ENCOUNTER 2024-08-29 18:51 | Emergency (ER) | payer SELFPAY ==
[2024-08-29] VITALS (19 sets, daily range): BP systolic 130–188; BP diastolic 72–108; PULSE 85–130; RESP 14–19; TEMP 36.6–36.7; O2SAT 95–100; BMI 29.0
--- NOTE | 2024-08-29 18:54 | ECG_ITS ---
APPROVED REPORT Exam: Resting ECG HR:98 bpm ECG Measurements Heart Rate 98 AXES ME 164 P 77 QRSd 80 QRS 82 QT 352 T 37 QTc 407 Conclusion SINUS RHYTHM NONSPECIFIC T-WAVE ABNORMALITY BORDERLINE ECG UNCONFIRMED REPORT Electronically signed by : ANH SANDOVAL, 08/30/2024 00:17:24
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
--- NOTE | 2024-08-29 18:57 | CT_ITS ---
PROCEDURE INFORMATION: Exam: CTA Head With Contrast, Arteriography Exam date and time: 08/29/2024 7:46 PM Age: 74 years old Clinical indication: Injury or trauma; Additional info: Trauma, critical injury suspected TECHNIQUE: Imaging protocol: Computed tomographic angiography of the head with contrast. Exam focused on the arteries. 3D rendering (Not supervised by radiologist): MIP and/or 3D reconstructed images were created by the technologist. Radiation optimization: All CT scans at this facility use at least one of these dose optimization techniques: automated exposure control; mA and/or kV adjustment per patient size (includes targeted exams where dose is matched to clinical indication); or iterative reconstruction. Contrast material: ISOVUE; Contrast volume: 80 ml; Contrast route: INTRAVENOUS (IV); COMPARISON: CT HEAD/BRAIN WO CON 08/29/2024 7:32 PM FINDINGS: ANTERIOR CIRCULATION: Right internal carotid artery: Calcification involving the right carotid siphon without significant stenosis. Right middle cerebral artery: No occlusion or significant stenosis. No aneurysm. Right anterior cerebral artery: Hypoplastic right ARNOL A1 segment. Left internal carotid artery: Calcification involving the left carotid siphon without significant stenosis. Left middle cerebral artery: No occlusion or significant stenosis. No aneurysm. Left anterior cerebral artery: No occlusion or significant stenosis. No aneurysm. POSTERIOR CIRCULATION: Right vertebral artery: No occlusion or significant stenosis. No aneurysm. Left vertebral artery: No occlusion or significant stenosis. No aneurysm. Basilar artery: No occlusion or significant stenosis. No aneurysm. Right posterior cerebral artery: Carotid dominant right posterior cerebral artery with hypoplastic right TICKET DISPATCHER P1 segment. Left posterior cerebral artery: No occlusion or significant stenosis. No aneurysm. IMPRESSION: No hemodynamically significant stenosis or large vessel occlusion.
--- NOTE | 2024-08-29 18:58 | CT_ITS ---
PROCEDURE INFORMATION: Exam: CT Pelvis Without Contrast, Skeleton Exam date and time: 08/29/2024 7:41 PM Age: 74 years old Clinical indication: Injury or trauma; Additional info: Trauma, critical injury suspected TECHNIQUE: Imaging protocol: Computed tomography of the pelvis without contrast. Exam focused on the skeleton. Radiation optimization: All CT scans at this facility use at least one of these dose optimization techniques: automated exposure control; mA and/or kV adjustment per patient size (includes targeted exams where dose is matched to clinical indication); or iterative reconstruction. COMPARISON: CT ABDOMEN PELVIS W CON 05/12/2022 18:07 FINDINGS: Reproductive: Status post hysterectomy. Bones/joints: Postsurgical changes of L4-L5. Hardware appears intact. No acute fracture or dislocation. Soft tissues: Unremarkable. IMPRESSION: No acute fracture or dislocation.
--- NOTE | 2024-08-29 18:58 | PC.NURSE ---
trauma alert called [id number] cancelled [id number]
--- NOTE | 2024-08-29 19:00 | PC.NURSE ---
radiology at bedside
--- NOTE | 2024-08-29 19:03 | PC.NURSE ---
call made to respiratory for [facility] order
--- NOTE | 2024-08-29 19:05 | PC.NURSE ---
RAD at BS for xrays
[2024-08-29 19:09] LABS: Lactate Venous 1.1 mmol/L (0.4-2.0); VBG Base Excess -3.4 mmol/L (-2.4-2.3); VBG HCO3 21.7 mmol/L (23-30); VBG Oxygen Saturation 89.4 % (50-70); VBG PCO2 37.1 mmol/L (35-51); VBG PH 7.38 mmol/L (7.31-7.41); VBG PO2 61.1 mmol/L (28-40); VBG Total CO2 22.8 mmol/L (23-27)
[2024-08-29 19:09] LABS: Basophils # 0.1 K/mm3 (0-0.2); Basophils % 0.8 % (0.1-2.0); Eosinophils # 0.2 K/mm3 (0.0-0.4); Eosinophils % 2.6 % (0.1-12.0); Hemoglobin 12.7 g/dL (12.2-16.2); Lymphocytes # 2.8 K/mm3 (0.7-4.5); Lymphocytes % 35.7 % (10-50); Mean Corpuscular HGB Conc 34.2 g/dL (31.8-35.4); Mean Corpuscular Volume 90.6 fl (81-99); Mean Platelet Volume 9.6 fl (7.4-10.4); Monocytes # 0.5 K/mm3 (0.1-1.0); Monocytes % 5.8 % (1.7-9.3); Neutrophils # 4.4 K/mm3 (1.8-7.8); Platelet Count 248 K/mm3 (142-424); Red Blood Count 4.08 M/mm3 (4.20-5.40); Red Cell Distribution Width 13.1 % (11.5-17.5); White Blood Count 7.9 K/mm3 (4.8-10.8)
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
[2024-08-29 19:18] LABS: Alanine Aminotransferase 22 U/L (12-78); Albumin Level 4.2 g/dl (3.5-5.0); Albumin/Globulin Ratio 1.3 (1.1-1.8); Alkaline Phosphatase 73 U/L (38-126); Anion Gap 3.7 mEq/L (5-15); Aspartate Amino Transferase 34 U/L (14-36); Bilirubin,Total 0.6 mg/dl (0.2-1.3); Blood Urea Nitrogen 13 mg/dl (7-17); Calcium 9.4 mg/dl (8.4-10.2); Carbon Dioxide 27 mmol/L (22.0-30.0); Chloride 107 mmol/L (98-107); Creatinine Clearance Estimated 65 mL/min (50-200); Estimated Glomerular Filt Rate 82 ml/min (>60); GFR (African American) 99 ML/MIN (>60); Globulin 3.2 g/dL (1.3-3.2); Glucose 101 mg/dl (74-100); Lipase 59 U/L (23-300); Potassium 3.7 mmoL/L (3.5-5.1); Sodium 134 mmol/L (136-145); Total Protein,Serum 7.4 g/dl (6.3-8.2)
[2024-08-29 19:24] LABS: Activated Partial Thrombo Time 23.1 seconds (22.8-30.6); INR 0.92 (0.9-1.1); Prothrombin Time 10.4 seconds (10.1-12.5)
[2024-08-29] MEDS: MORPHINE 4MG/ML SYRINGE 4 MG IV (19:25)
[2024-08-29] MEDS: ONDANSETRON 4MG/2ML VIAL 4 MG IV ×2 (19:25→21:44)
[2024-08-29] MEDS: KETOROLAC 30MG/ML VIAL 15 MG IV (19:25)
[2024-08-29] MEDS: ACETAMINOPHEN 500MG TAB 1000 MG PO (19:25)
[2024-08-29 19:39] LABS: Troponin I < 0.01 ng/ml (0.00-0.034)
[2024-08-29] MEDS: SODIUM CHLORIDE 0.9% 10ML SYR (RAD ONLY) 10 ML IV (19:58)
[2024-08-29] MEDS: 0.9 % SODIUM CHLORIDE 50 ML VIAL 100 ML IV (19:58)
[2024-08-29] MEDS: IOPAMIDOL-370 (76%);100ML BOTTLE 160 ML IV (19:58)
--- NOTE | 2024-08-29 21:58 | XR_ITS ---
PROCEDURE INFORMATION: Exam: XR Left Forearm Exam date and time: 08/29/2024 9:55 PM Age: 74 years old Clinical indication: Pain; Lower or forearm; Left; Additional info: Post reduction TECHNIQUE: Imaging protocol: Radiologic exam of the left forearm. Views: 2 views. COMPARISON: CR XR FOREARM LT 2V 29/08/2024 18:59 FINDINGS: Bones/joints: Redemonstration of displaced and mildly comminuted radial and ulnar diaphyseal fractures. There is significant improvement in posterior angulation and radial displacement. To prior study. Soft tissues: Normal. IMPRESSION: Improved position of bones status post splinting.
[2024-08-29] MEDS: KETAMINE 50MG/1ML SYRINGE 50 MG IV ×2 (22:56)
--- NOTE | 2024-08-29 22:56 | PC.NURSE ---
2148 patient given zofran 215 50 ketamine given by physician 2156 20 ketamine given by physician 0 20 ketamine given by physician 2211 10 ketamine given by physician
--- NOTE | 2024-08-29 23:17 | PC.NURSE ---
Dr. Macario at bedside
--- NOTE | 2024-08-29 23:18 | PC.NURSE ---
Cap refill 3 seconds on left hand patient still very sleepy; unable to drink water at this moment
[2024-08-29] MEDS: METOCLOPRAMIDE HCL 10MG/2ML VIAL 5 MG IVP (23:35)
[2024-08-30 01:11] VITALS: BP 142/78; PULSE 90; RESP 18; TEMP 36.6; O2SAT 100
--- NOTE | 2024-08-30 01:12 | PC.NURSE ---
Patient alert, awake and oriented x4. Neurovascular intact. cap refill less than 4 seconds on left
== END 2024-08-30 01:13 | disposition home or self-care (01) ==
PROVIDERS: Emergency Provider Emergency Medicine; PCP Physician Assistant
DX: S52.92XA Unspecified fracture of left forearm, initial encounter for closed fracture (principal); E04.1 Nontoxic single thyroid nodule; V89.2XXA Person injured in unspecified motor-vehicle accident, traffic, initial encounter
CPT/HCPCS: 70450; 70496; 70498; 71045; 71275; 72125; 72128; 72131; 72170; 72192; 73080; 73090; 73110; 73130; 74174; 80053; 82803; 83690; 84484; 85025; 85610; 85730; 93005; 96372; 96374; 96375; 96376; 99152; 99153; 99285; J1885; J2270; J2405; J2765; Q9967

== ENCOUNTER 2024-09-20 10:09 | Outpatient (CLI) | payer MEDICARE, SELFPAY ==
--- NOTE | 2024-09-20 10:23 | XR_ITS ---
FINAL REPORT CLINICAL HISTORY: right knee pain COMPARISON: None FINDINGS: RIGHT KNEE: 3 views of the right knee obtained. There is no acute fracture or dislocation. Moderate and severe degenerative change is present, most severe in the patellofemoral compartment. There are several anterior and posterior loose bodies in the knee joint.. There is no soft tissue abnormality. IMPRESSION: Moderate and severe degenerative change, most severe in the patellofemoral compartment. Loose bodies are present and the need joint. Reviewed, Interpreted and Dictated by Manuel Apodaca III, MD Transcribed by Gunjan Yeh Authenticated and . [facility]
--- NOTE | 2024-09-20 10:23 | XR_ITS ---
FINAL REPORT CLINICAL HISTORY: knee pain COMPARISON: None FINDINGS: Three views of the left knee reveal no evidence of fracture or dislocation. The bony alignment is normal. There is moderate to severe degenerative change present, most severe in the patellofemoral compartment. There is no evidence of joint effusion. No localized soft tissue abnormality is seen. IMPRESSION: Moderate to severe degenerative change is present, most severe in the patellofemoral compartment. Reviewed, Interpreted and Dictated by Manuel Apodaca III, MD Transcribed by Gunjan Yeh Authenticated and . [facility]
== END 2024-09-20 23:59 | disposition home or self-care (01) ==
LOC: RAD 10:10
PROVIDERS: PCP Internal Medicine; Visit Provider Physician Assistant
DX: M25.561 Pain in right knee (principal); M25.562 Pain in left knee
CPT/HCPCS: 73562

== ENCOUNTER 2024-10-13 12:46 | Emergency (ER) | payer MEDICARE, SELFPAY ==
[2024-10-13 13:39] VITALS: BP 147/67; PULSE 76; RESP 18; TEMP 36.8; O2SAT 98; BMI 26.3
--- NOTE | 2024-10-13 13:45 | ED_ITS ---
Discharge Plan Disposition Patient Disposition: Home, Self-Care Condition: Good Prescriptions Prescriptions: New amoxicillin 875 mg tablet 875 mg PO Q12H Qty: 20 0RF benzonatate 100 mg capsule 100 mg PO TIDP PRN (Reason: Cough) Qty: 30 0RF methylprednisolone 4 mg Tablets,Dose Pack 4 mg PO DIRECTED 6 Days Qty: 21 0RF Rx Instructions: Take 1 pack as directed for 6 days No Action hydrocodone-acetaminophen 10-325 mg tablet 1 tab PO TID PRN (Reason: pain) Qty: 90 0RF amlodipine 5 mg tablet 5 mg PO DAILY Qty: 90 0RF atorvastatin 10 mg tablet 10 mg PO DAILY Qty: 90 0RF Referrals Follow up/Referrals: Morro Bowers DO [Primary Care Provider] - See instructions Activity Restrictions/Add. Instructions Additional Instructions/Restrictions: Drink plenty of fluids. Take tylenol for pain or fever. Take the medications as directed. Follow up with your regular doctor. GO TO THE ER FOR ANY WORSENING SYMPTOMS Clinical Impressions Clinical Impression: Otitis media, Sinusitis Instructions Patient Instructions: Sinusitis, DI for Sinusitis Print Language Print Language: Bulgarian Discharge ED Provider: Uday Obregon [facility] HPI General Stated complaint: Right ear pain dizziness Mode of Arrival: Ambulatory Source of Information: Patient Time Seen by Provider: 10/13/24 13:42 Description of Symptoms (Recalled from Triage Doc. by RN): BLANCO, CONGESTION, EAR ACHE HEENT Symptoms (Recalled from RN notes): Yes Resp Symptoms (Recalled from RN notes): Yes Skin Symptoms (Recalled from RN notes): No MS Symptoms (Recalled from RN notes): No Functional Status (Recalled from RN notes): WNL Related Data Previous Rx's ?Medication ?Instructions ?Recorded amlodipine 5 mg tablet 5 mg PO DAILY #90 tabs 09/18/24 atorvastatin 10 mg tablet 10 mg PO DAILY #90 tabs 09/18/24 hydrocodone 10 mg-acetaminophen 1 tab PO TID PRN pain #90 tabs 09/18/24 325 mg tablet amoxicillin 875 mg tablet 875 mg PO Q12H #20 tabs 10/13/24 benzonatate 100 mg capsule 100 mg PO TIDP PRN Cough #30 caps 10/13/24 methylprednisolone 4 mg tablets in 4 mg PO DIRECTED 6 days #21 tabs 10/13/24 a dose pack Allergies Allergy/AdvReac Type Severity Reaction Status Date / Time lisinopril Allergy Severe Anaphylaxis Verified 10/04/24 08:51 sulfamethoxazole (From AdvReac Severe Hives Verified 10/04/24 08:51 Bactrim) trimethoprim (From Bactrim) AdvReac Severe Hives Verified 10/04/24 08:51 ketamine AdvReac Mild Hallucinati Verified 10/04/24 09:00 ng Worker's Comp Is this a Worker's Comp case?: No [facility] Disclaimer: The information contained in this section may have been updated after the patient was seen, as this information can be updated by other users. Medical History Abdominal pain Anxiety Arthritic-like pain Bilateral otitis media Bronchitis COVID-19 Ear ache Elbow pain, right Gastroenteritis Gastroenteritis Hyperlipidemia (~03/30/18) Hypertension Hypokalemia Impacted cerumen of both ears Influenza Injury of great toe Knee pain, acute Laceration of right thumb Otitis media Pain in right foot Syncope, vasovagal Toe sprain Urinary incontinence UTI (urinary tract infection) Viral illness Vitamin B12 deficiency (~03/30/18) Vitamin D deficiency (~03/30/18) Warts of foot Surgical History History of back surgery History of bunionectomy of right great toe History of section History of cholecystectomy History of hysterectomy History of right elbow replacement S/P left rotator cuff repair Family History Other Cancer Diabetes Hyperlipidemia Hypertension Thyroid disorder Social History (Updated 10/04/24 @ 10:18 by Morro Bowers DO) Smoking Status: Never smoker alcohol intake: never substance use type: denies use current occupational status: other household members: family housing: house ROS Obtained: Yes All systems reviewed & no additional complaints except as documented Constitutional Constitutional: Denies chills, Reports fever(s) and Reports poor appetite Eyes Eyes: Denies eye discharge ENT Ears, Nose, Mouth, and Throat: Denies ear discharge, Reports otalgia, Denies hearing loss, Denies sinus pain and Reports sore throat Cardiovascular Cardiovascular: Denies chest pain and Denies dyspnea Respiratory Respiratory: Denies chest congestion, Reports cough and Denies dyspnea Gastrointestinal Gastrointestingal: Denies abdominal pain, diarrhea, nausea or vomiting Musculoskeletal Musculoskeletal: Denies arthralgias Integumentary/Breasts Skin/Breast: Denies rash Physical Exam General General appearance: alert and in no apparent distress Head Head exam: atraumatic, normocephalic and normal inspection Eye Eye exam: Present normal appearance; Absent PERRL or EOMI ENT ENT exam: Present mucous membranes moist and normal external ear exam Expanded ENT Exam TM/Canal exam: Bilateral TM: erythema, bulging and effusion Nose exam: Absent sinus tenderness Nasal speculum exam: Bilateral: normal Mouth exam: Present normal external inspection and other; Absent drooling Teeth exam: Present normal inspection Throat exam: Present tonsillar erythema and tonsillomegaly Neck Neck exam: Present normal inspection, full ROM and trachea midline; Absent tenderness, meningismus or lymphadenopathy Chest Chest inspection: Present normal inspection and symmetric chest wall rise; Absent tenderness Respiratory Respiratory exam: Present normal lung sounds bilaterally; Absent respiratory distress, wheezes or stridor Cardiovascular Cardiovascular exam: Present regular rate, normal rhythm and normal heart sounds; Absent tachycardia or irregular rhythm Abdominal Exam Abdominal exam: Present soft and normal bowel sounds; Absent distention, tenderness, guarding, rebound or rigidity Extremities Exam Extremities exam: Present normal inspection and normal capillary refill; Absent tenderness, joint swelling or calf tenderness Back Exam Back exam: Present normal inspection and full ROM; Absent tenderness, CVA tenderness (R) or CVA tenderness (L) Neurological Exam Neurological exam: Present alert, oriented X3, CN II-XII intact, normal gait and reflexes normal; Absent motor sensory deficit Psychiatric Psychiatric exam: Present normal affect and normal mood Skin Skin exam: Present warm, dry, intact and normal color Lymphatic Lymphatic Findings: no adenopathy Medical Decision Making Medical Records Medical records reviewed: No I reviewed the patient's medical records. Screening: Per USPSTF and CDC recommendations, given the prevalence of disease in our region, it is our hospital?s policy to screen for HIV and viral Hepatitis for all patients aged 18 and over and those with ongoing risk factors. Chava Inquiry Pt receiving controlled substance: No Vital Signs: 10/13/24 13:39 Temperature 98.2 F Temperature Source Oral Pulse Rate [Left Radial] 76 Respiratory Rate 18 Blood Pressure [Left Arm] 147/67 H Blood Pressure Mean [Left Arm] 93 02 Sat by Pulse Oximetry 98
[2024-10-13 14:03] VITALS: BP 147/67; PULSE 76; RESP 18; TEMP 36.8
== END 2024-10-13 14:04 | disposition home or self-care (01) ==
PROVIDERS: Emergency Provider Nurse Practitioner Family; PCP Internal Medicine
DX: H66.91 Otitis media, unspecified, right ear (principal); J01.90 Acute sinusitis, unspecified
CPT/HCPCS: 99213; G0381

== ENCOUNTER 2025-01-30 11:31 | Emergency (ER) | payer MEDICARE, SELFPAY ==
[2025-01-30 11:34] VITALS: BP 136/70; PULSE 85; RESP 18; TEMP 36.9; O2SAT 98; BMI 27.4
[2025-01-30 11:44] LABS: Influenza A, PCR Not Detected (NotDetected); Influenza B, PCR Not Detected (NotDetected)
--- NOTE | 2025-01-30 11:56 | XR_ITS ---
FINAL REPORT CLINICAL HISTORY: Fever, possible pneumonia COMPARISON: 06/28/2023 FINDINGS: 2 views of the chest were obtained . The heart is normal in size. The mediastinum is within normal limits. The lungs are clear. There is no pneumothorax. Osseous structures are unremarkable. IMPRESSION: No acute cardiopulmonary process. Reviewed, Interpreted and Dictated by Robert Schofield MD Transcribed by Nicole Thomas Authenticated and [facility]
--- NOTE | 2025-01-30 11:57 | HMH.EDGENADL ---
Discharge Plan Disposition Patient Disposition: Home, Self-Care Prescriptions Prescriptions: No Action hydrocodone-acetaminophen 10-325 mg tablet 1 tab PO TID PRN (Reason: pain) Qty: 90 0RF atorvastatin 10 mg tablet See Rx Instructions .ROUTE .COMPLEX Qty: 30 2RF Dose Instruction: TAKE ONE TABLET BY MOUTH ONCE A DAY Rx Instructions: TAKE ONE TABLET BY MOUTH ONCE A DAY amlodipine 5 mg tablet See Rx Instructions .ROUTE .COMPLEX Qty: 30 2RF Dose Instruction: TAKE ONE TABLET BY MOUTH ONCE A DAY Rx Instructions: TAKE ONE TABLET BY MOUTH ONCE A DAY Referrals Follow up/Referrals: Morro Bowers DO [Primary Care Provider] - See instructions Activity Restrictions/Add. Instructions Additional Instructions/Restrictions: You are diagnosed with COVID-19. To treat the symptoms with Tylenol and ibuprofen every 6 hours as needed. Return to work when you have been without fever without taking Tylenol or ibuprofen for 24 hours. You will likely have symptoms over the next several days. Follow-up with your primary care physician if symptoms do not improve if you develop any new or worsening symptoms, or if you become concerned for your health for any reason, return to the emergency department for evaluation. Clinical Impressions Clinical Impression: COVID-19 Stand Alone Forms Stand Alone Forms: Work/School Release Instructions Patient Instructions: DI for COVID-19 (Suspected or Confirmed ) Print Language Print Language: Yi Discharge ED Provider: Jose Sweet Adult HPI General Chief complaint: Fever Stated complaint: fever, headache, weakness Time Seen by Provider: 01/30/25 11:53 Mode of Arrival: Ambulatory Source of Information: Patient Description of Symptoms (Recalled from ER Triage Doc. by RN): Pt presents for evaluation of fever that started yesterday. Pt reports highest temp at home was 102, pt states she has taken tylenol for the fever. Last dose was 0700 today.Pt states she also has a headache that she rates as a 6/10. Pt endorses bodyaches. History of Present Illness HPI narrative: Katie Sheldon is a 75y female with a past medical history of hypertension and urinary tract infection who presents to the emergency department for complaints of fever and headache. Patient states that her symptoms began last night with a fever of 102 ?F. She has a headache around her occiput and down her neck. She tried [id number] Tylenol this morning without significant proved of her symptoms. She denies any chest pain, shortness of breath, abdominal pain, nausea, vomiting, diarrhea. She states that she has not had any sick contacts that she is aware of. Related Data Previous Rx's ?Medication ?Instructions ?Recorded hydrocodone 10 mg-acetaminophen 1 tab PO TID PRN pain #90 tabs 01/10/25 325 mg tablet amlodipine 5 mg tablet See Rx Instructions .Route 01/14/25 .COMPLEX #30 tabs atorvastatin 10 mg tablet See Rx Instructions .Route 01/14/25 .COMPLEX #30 tabs Allergies Allergy/AdvReac Type Severity Reaction Status Date / Time lisinopril Allergy Severe Anaphylaxis Verified 12/24/24 09:08 sulfamethoxazole (From AdvReac Severe Hives Verified 12/24/24 09:08 Bactrim) trimethoprim (From Bactrim) AdvReac Severe Hives Verified 12/24/24 09:08 ketamine AdvReac Mild Hallucinati Verified 12/24/24 09:08 [facility] Disclaimer: The information contained in this section may have been updated after the patient was seen, as this information can be updated by other users. Medical History Impacted cerumen of both ears Gastroenteritis Syncope, vasovagal Urinary incontinence Elbow pain, right Anxiety Hypertension Knee pain, acute Hypokalemia Gastroenteritis COVID-19 Ear ache Bilateral otitis media Warts of foot Abdominal pain Pain in right foot Viral illness Influenza Toe sprain Injury of great toe Bronchitis Otitis media Arthritic-like pain Laceration of right thumb Vitamin B12 deficiency (~03/30/18) Vitamin D deficiency (~03/30/18) Hyperlipidemia (~03/30/18) UTI (urinary tract infection) Surgical History History of bunionectomy of right great toe History of right elbow replacement S/P left rotator cuff repair History of hysterectomy History of back surgery History of section History of cholecystectomy Family History Other Cancer Diabetes Hyperlipidemia Hypertension Thyroid disorder Social History Smoking Status: Never smoker alcohol intake: never substance use type: denies use current occupational status: other Travel in the last 8 weeks: None household members: family housing: house Have you lived/traveled outside [place] in past 30 days?: No Contact w/someone who lives/traveled outside [place] past 30 days?: No Exposure to someone with infectious disease in past 14 days?: No Do you have a fever (greater than 100.4 F or 38 C)?: Yes Have you tested positive for COVID-19: No Exposed to someone with COVID-19 in past 14 days?: No Do you have a sore throat?: No Do you have a cough?: No Do you have any weakness?: Yes Do you have any diarrhea?: No Are you experiencing any unusual bleeding?: No Do you have any muscle aches/pain?: No Do you have any abdominal pain?: No Are you experiencing loss of taste or smell?: No Other Medical History Have you received the Flu Vaccine for this season: No Have you received the Pneumonia Vaccine: Yes ROS Obtained: Yes Systems reviewed as appropriate & no additional complaints except as documented Physical Exam General General appearance: alert and in no apparent distress Comment: Ill but non toxic appearing Head Head exam: atraumatic, normocephalic and normal inspection Eye Eye exam: Present normal appearance ENT ENT exam: Present mucous membranes moist and normal external ear exam Expanded ENT Exam TM/Canal exam: Bilateral TM: erythema, bulging and effusion Nose exam: Absent sinus tenderness Nasal speculum exam: Bilateral: normal Mouth exam: Present normal external inspection and other; Absent drooling Teeth exam: Present normal inspection Throat exam: Present tonsillar erythema and tonsillomegaly Neck Neck exam: Present normal inspection, full ROM and trachea midline; Absent tenderness, meningismus or lymphadenopathy Chest Chest inspection: Present normal inspection and symmetric chest wall rise; Absent tenderness Respiratory Respiratory exam: Present normal lung sounds bilaterally; Absent respiratory distress, wheezes or stridor Cardiovascular Cardiovascular exam: Present regular rate, normal rhythm and normal heart sounds; Absent tachycardia or irregular rhythm Abdominal Exam Abdominal exam: Present soft and normal bowel sounds; Absent distention, tenderness, guarding, rebound or rigidity Extremities Exam Extremities exam: Present normal inspection and normal capillary refill; Absent tenderness, joint swelling or calf tenderness Back Exam Back exam: Present normal inspection and full ROM Neurological Exam Neurological exam: Present alert, oriented X3 and reflexes normal Psychiatric Psychiatric exam: Present normal affect and normal mood Skin Skin exam: Present warm, dry, intact and normal color Lymphatic Lymphatic Findings: no adenopathy Medical Decision Making Medical Records Screening: Per USPSTF and CDC recommendations, given the prevalence of disease in our region, it is our hospital?s policy to screen for HIV and viral Hepatitis for all patients aged 18 and over and those with ongoing risk factors. Chava Inquiry Pt receiving controlled substance: No Vital Signs: 01/30/25 11:34 01/30/25 13:26 Temperature 98.4 F 98.4 F Temperature Source Oral Oral Pulse Rate 84 Pulse Rate [Right] 85 Respiratory Rate 18 20 Blood Pressure 125/85 Blood Pressure [Right Arm] 136/70 Blood Pressure Mean [Right Arm] 92 Blood Pressure Source Automatic Cuff Blood Pressure Source [Right Arm] Manual Cuff/ Doppler Blood Pressure Position [Right Arm] Sitting 02 Sat by Pulse Oximetry 98 Oxygen Delivery Method Room Air Room Air Lab Data Lab Results 01/30/25 11:39: SARS-CoV-2 (PCR) Detected A, Influenza A Untype (PCR) Not detected, Influenza Type B (PCR) Not detected 01/30/25 12:14: Urine Color Yellow, Urine Appearance Clear, Urine pH 6.0, Ur Specific [place] 1.025, Urine Protein Negative, Urine Glucose (UA) Negative, Urine Ketones Negative, Urine Blood Moderate, Urine Nitrate Negative, Urine Bilirubin Negative, Urine Urobilinogen 0.2, Ur Leukocyte Esterase Small, Urine RBC None, Urine WBC Occasional, Ur Squamous Epith Cells 5-10, Ur Transition Epith Cell 3-5 Orders (Tests/Meds): ED MEDICATIONS Discontinued Medications Generic Name Dose Route Start Last Admin Trade Name Bariq PRN Reason Stop Dose Admin Ibuprofen 600 mg 01/30/25 11:56 01/30/25 11:59 Ibuprofen 600 Mg Tablet PO 01/30/25 11:57 600 mg ONCE ONE Administration ORDERS Category Date Time Status CXR 2 view (NOT portable) [XR chest 2V] Stat Exams 01/30/25 11:56 Completed Rapid PCR Covid and Flu A/B Stat Lab 01/30/25 11:39 Completed UA [Urinalysis and Microscopic] Stat Lab 01/30/25 12:14 Completed Medical Decision Narrative: Katie Sheldon is a 75y female with a past medical history of hypertension and urinary tract infection who presents to the emergency department for complaints of fever and headache. Patient states that her symptoms began last night with a fever of 102 ?F. She has a headache around her occiput and down her neck. She tried [id number] Tylenol this morning without significant proved of her symptoms. She denies any chest pain, shortness of breath, abdominal pain, nausea, vomiting, diarrhea. She states that she has not had any sick contacts that she is aware of. On arrival, patient is mildly hypertensive, heart rate within normal limits, afebrile, breathing comfortably on room air with oxygen saturation 98% SpO2. Physical exam, stated above, revealed an ill but nontoxic-appearing female. She has no neck stiffness on exam. Cardiopulmonary exam is unremarkable. She appears well-hydrated. Differential diagnosis includes, but is not limited to: COVID/flu, viral respiratory illness, pneumonia, UTI. There is low concern for meningitis at this point as she is completely alert and oriented and does not have meningismus. Workup in the emergency department included: 2 view chest x-ray, urinalysis, rapid COVID/flu testing. Patient was treated with 600 mg of ibuprofen for symptomatic relief. Chest x-ray interpreted by me personally. No focal consolidations, no pneumothorax, no widening of the mediastinum, cardiac silhouette is not enlarged. See radiology report for final details. Urinalysis demonstrated no evidence of urinary tract infection. Patient's rapid COVID/flu testing is positive for COVID-19. Patient symptomatology is most consistent with diagnosis of COVID-19. Recommending symptomatic treatment at home with Tylenol, ibuprofen and rest. She was instructed to avoid interpersonal contact until she has been afebrile for 24 hours without Tylenol or Motrin. Return precautions were given. All questions were answered. She demonstrated understanding and was in agreement this plan. She was then discharged from the emergency department in stable condition. Critical Care Critical Care Time Critical Care Time: No
[2025-01-30] MEDS: IBUPROFEN 600 MG TABLET PO (11:59)
[2025-01-30 12:19] LABS: Coronavirus 19, PCR Detected (NotDetected)
[2025-01-30 12:29] LABS: Microscopic, Urine URINE MICROSCOPIC (MICROSCOPIC)
[2025-01-30 12:39] LABS: Appearance,Urine CLEAR (Clear); Bilirubin,Urine Negative (Negative); Blood, Urine MODERATE (Negative); Color,Urine YELLOW (Yellow); Glucose,Urine (UA) Negative (Negative); Ketones,Urine Negative (Negative); Leukocyte Esterase,Urine SMALL (Negative); Nitrate,Urine Negative (Negative); Protein,Urine Negative (Negative); Specific Gravity, Urine 1.025 (1.005-1.030); Urobilinogen,Urine 0.2 EU/dl (0.2)
[2025-01-30 12:47] LABS: WBC,Urine Occasional #/hpf (0-3)
[2025-01-30 13:26] VITALS: BP 125/85; PULSE 84; RESP 20; TEMP 36.9; O2SAT 97
== END 2025-01-30 13:28 | disposition home or self-care (01) ==
PROVIDERS: Emergency Provider Student in an Organized Health Care Education/Training Program; PCP Internal Medicine
DX: U07.1 COVID-19 (principal); R50.9 Fever, unspecified; R51.9 Headache, unspecified; R53.1 Weakness
CPT/HCPCS: 71046; 81001; 87636; 99283

== ENCOUNTER 2025-02-04 07:58 | Emergency (ER) | payer MEDICARE, SELFPAY ==
[2025-02-04 08:09] VITALS: BP 126/73; PULSE 81; RESP 16; TEMP 36.6; O2SAT 98; BMI 27.4
[2025-02-04 08:27] VITALS: BP 126/73; PULSE 83; RESP 16; TEMP 36.7; O2SAT 95
--- NOTE | 2025-02-04 08:28 | ED_ITS ---
Discharge Plan Disposition Patient Disposition: Home, Self-Care Condition: Good Prescriptions Prescriptions: New chlorhexidine gluconate [Peridex] 0.12 % mouthwash 15 ml buccal BID Qty: 120 0RF fluticasone propionate [Flonase Allergy Relief] 50 mcg/actuation spray,suspension 1 spray intranasal BID Qty: 16 0RF Rx Instructions: administer into each nostril cetirizine [Zyrtec] 10 mg tablet 10 mg PO DAILY Qty: 30 0RF ondansetron 4 mg tablet,disintegrating 4 mg PO Q8H PRN (Reason: nausea and vomiting) 4 Days Qty: 12 0RF No Action hydrocodone-acetaminophen 10-325 mg tablet 1 tab PO TID PRN (Reason: pain) Qty: 90 0RF atorvastatin 10 mg tablet See Rx Instructions .ROUTE .COMPLEX Qty: 30 2RF Dose Instruction: TAKE ONE TABLET BY MOUTH ONCE A DAY Rx Instructions: TAKE ONE TABLET BY MOUTH ONCE A DAY amlodipine 5 mg tablet See Rx Instructions .ROUTE .COMPLEX Qty: 30 2RF Dose Instruction: TAKE ONE TABLET BY MOUTH ONCE A DAY Rx Instructions: TAKE ONE TABLET BY MOUTH ONCE A DAY Referrals Follow up/Referrals: Morro Bowers DO [Primary Care Provider] - See instructions Activity Restrictions/Add. Instructions Additional Instructions/Restrictions: You were evaluated in the emergency department today. At this time, your ears look like you have fluid buildup behind them but you do not appear to have any sort of ear infection currently. For this, I am prescribing you Flonase and Zyrtec to help dry up this fluid. You also have some inflammation of your gums, for which I am prescribing you an oral rinse. I also prescribed you Zofran since you have complained of intermittent nausea and diarrhea in the setting of recent COVID-19 illness. Please draft roller picker your prescriptions at the pharmacy and take them as prescribed. Take Tylenol and ibuprofen at home as needed for pain. Follow-up with your primary care provider over the next week for reassessment. Return to the emergency department for new or worsening symptoms. Clinical Impressions Clinical Impression: Acute effusion of both middle ears, Gingivitis Instructions Patient Instructions: DI for Gingivitis, DI for Viral Syndrome, DI for Ear Pain-Adult Print Language Print Language: Tajik Discharge ED Provider: Nicole Macario General Adult HPI General Chief complaint: Upper Respiratory Infection Stated complaint: Congestion, ear pain, feels dehydrated Time Seen by Provider: 02/04/25 08:10 Mode of Arrival: Ambulatory Source of Information: Patient Description of Symptoms (Recalled from ER Triage Doc. by RN): Patient reports being COVID positive and states that she is feeling better. Reports that she is wanting fluids. History of Present Illness HPI narrative: This patient is a 75-year-old female with a history of fibromyalgia, hypertension, hyperlipidemia presenting to the emergency department for evaluation with concern for lateral ear pain, right greater than left, gum pain and irritation, and feeling like she wants IV fluids. She notes she had COVID- 19 last week and actually is feeling a lot better. She is evaluated here 01/30/2025 when she tested positive. She states that she is doing a lot better, still having occasional episodes of diarrhea but overall nothing concerning. She is tolerating oral intake without issue. She states she wants some IV fluids because usually that helps her feel better if she is sick. She has right greater than left ear pain as well as some gum pain and irritation, but she denies any other concerns or complaints. Related Data Previous Rx's ?Medication ?Instructions ?Recorded hydrocodone 10 mg-acetaminophen 1 tab PO TID PRN pain #90 tabs 01/10/25 325 mg tablet amlodipine 5 mg tablet See Rx Instructions .Route 01/14/25 .COMPLEX #30 tabs atorvastatin 10 mg tablet See Rx Instructions .Route 01/14/25 .COMPLEX #30 tabs cetirizine 10 mg tablet (Zyrtec) 10 mg PO DAILY #30 tabs 02/04/25 chlorhexidine gluconate 0.12 % 15 ml buccal BID #120 mL 02/04/25 mouthwash (Peridex) fluticasone propionate 50 1 spray intranasal BID #16 grams 02/04/25 mcg/actuation nasal spray,suspension (Flonase Allergy Relief) ondansetron 4 mg disintegrating 4 mg PO Q8H PRN nausea and 02/04/25 tablet vomiting 4 days #12 tabs Allergies Allergy/AdvReac Type Severity Reaction Status Date / Time lisinopril Allergy Severe Anaphylaxis Verified 12/24/24 09:08 sulfamethoxazole (From AdvReac Severe Hives Verified 12/24/24 09:08 Bactrim) trimethoprim (From Bactrim) AdvReac Severe Hives Verified 12/24/24 09:08 ketamine AdvReac Mild Hallucinati Verified 12/24/24 09:08 [facility] Disclaimer: The information contained in this section may have been updated after the patient was seen, as this information can be updated by other users. Medical History Impacted cerumen of both ears Gastroenteritis Syncope, vasovagal Urinary incontinence Elbow pain, right Anxiety Hypertension Knee pain, acute Hypokalemia Gastroenteritis COVID-19 Ear ache Bilateral otitis media Warts of foot Abdominal pain Pain in right foot Viral illness Influenza Toe sprain Injury of great toe Bronchitis Otitis media Arthritic-like pain Laceration of right thumb Vitamin B12 deficiency (~03/30/18) Vitamin D deficiency (~03/30/18) Hyperlipidemia (~03/30/18) UTI (urinary tract infection) Surgical History History of bunionectomy of right great toe History of right elbow replacement S/P left rotator cuff repair History of hysterectomy History of back surgery History of section History of cholecystectomy Family History Other Cancer Diabetes Hyperlipidemia Hypertension Thyroid disorder Social History Smoking Status: Never smoker alcohol intake: never substance use type: denies use current occupational status: other Travel in the last 8 weeks: None household members: family housing: house Have you lived/traveled outside [place] in past 30 days?: No Contact w/someone who lives/traveled outside US past 30 days?: No Exposure to someone with infectious disease in past 14 days?: Yes Do you have a fever (greater than 100.4 F or 38 C)?: No Have you tested positive for COVID-19: Yes Exposed to someone with COVID-19 in past 14 days?: Yes Do you have a sore throat?: No Do you have a cough?: No Do you have any weakness?: No Do you have any diarrhea?: No Are you experiencing any unusual bleeding?: No Do you have any muscle aches/pain?: No Do you have any abdominal pain?: No Are you experiencing loss of taste or smell?: No Other Medical History Have you received the Flu Vaccine for this season: No Have you received the Pneumonia Vaccine: Yes ROS Obtained: Yes All systems reviewed & no additional complaints except as documented Physical Exam General General appearance: alert and in no apparent distress Head Head exam: atraumatic and normocephalic Eye Eye exam: Present normal appearance, PERRL and EOMI ENT ENT exam: Present normal exam, normal oropharynx, mucous membranes moist and ot her (Gingival irritation of the right upper gums. Without bilateral serous effusions erythema or purulence) Neck Neck exam: Present normal inspection, full ROM and trachea midline; Absent tenderness Chest Chest inspection: Present normal inspection and symmetric chest wall rise; Absent tenderness Respiratory Respiratory exam: Present normal lung sounds bilaterally; Absent respiratory distress, wheezes, stridor or accessory muscle use Cardiovascular Cardiovascular exam: Present regular rate and normal rhythm Abdominal Exam Abdominal exam: Present soft; Absent distention, tenderness or guarding Extremities Exam Extremities exam: Present normal inspection, full ROM and normal capillary refill; Absent tenderness or edema Back Exam Back exam: Present normal inspection and full ROM; Absent tenderness Neurological Exam Neurological exam: Present alert, oriented X3, CN II-XII intact and normal gait; Absent motor sensory deficit Psychiatric Psychiatric exam: Present normal affect and normal mood Skin Skin exam: Present warm and dry Medical Decision Making Medical Records Medical records reviewed: Yes I reviewed the patient's medical records. Screening: Per USPSTF and CDC recommendations, given the prevalence of disease in our region, it is our hospital?s policy to screen for HIV and viral Hepatitis for all patients aged 18 and over and those with ongoing risk factors. Chava Inquiry Pt receiving controlled substance: No Vital Signs: 02/04/25 08:09 02/04/25 08:27 Temperature 97.9 F 98.0 F Temperature Source Oral Oral Pulse Rate 83 Pulse Rate [Radial] 81 Respiratory Rate 16 16 Blood Pressure 126/73 Blood Pressure [Right Arm] 126/73 Blood Pressure Mean [Right Arm] 90 Blood Pressure Source Automatic Cuff Blood Pressure Source [Right Arm] Automatic Cuff Blood Pressure Position Sitting Blood Pressure Position [Right Arm] Sitting 02 Sat by Pulse Oximetry 98 Oxygen Delivery Method Room Air Room Air Lab Data Lab results reviewed: Yes I reviewed the patient's lab results. Orders (Tests/Meds): ORDERS Category Date Time Status HIV Combo Stat Lab 02/04/25 08:12 Ordered Hepatitis C Ab Qual. W/ RFX Stat Lab 02/04/25 08:12 Ordered Medical Decision Narrative: In summary, this patient is a 75-year-old female presenting to the Emergency Department for evaluation of bilateral ear pain, right greater than left, gum irritation, occasional nausea and diarrhea, and request for IV fluids. Differential diagnoses considered include but are not limited to viral syndrome, otitis, eustachian tube dysfunction, gingivitis. Ruling out the most morbid conditions drove assessment. It should be noted patient's history includes fibromyalgia, hypertension, hyperlipidemia, MARY which may or may not be at goal therapy. This complicates all aspects of care by increasing patient's risk for morbidity. I reviewed patient's past medical records and noted evaluation here 01/30/2025 where she test positive for COVID-19 as detailed in HPI. On exam, the patient is sitting upright in no acute distress. She appears very well-hydrated with moist mucous membranes, normal cap refill. Vitals are normal on cardiac telemetry with no tachycardia or hypotension. She has bilateral serous ear effusions but no concerns for otitis media or externa. She has minor gingival irritation of her right upper gums. Exam is overall very reassuring. Ultimately at this time, I do not feel that labs or imaging are indicated, I do not feel that she requires IV fluids because she is tolerating oral fluids without difficulty and does not appear dehydrated on clinical exam. I feel she is appropriate for discharge with Flonase and Zyrtec to help with eustachian tube dysfunction/serous ear effusions, Peridex oral rinse to help with her gingival irritation, Zofran to have as needed for nausea, vomiting, diarrhea. She was discharged with strict return precautions and instructions for close follow-up with primary care. Critical Care Critical Care Time Critical Care Time: No
== END 2025-02-04 08:28 | disposition home or self-care (01) ==
PROVIDERS: Emergency Provider Emergency Medicine; PCP Internal Medicine
DX: H65.193 Other acute nonsuppurative otitis media, bilateral (principal); H92.03 Otalgia, bilateral; R19.7 Diarrhea, unspecified; K08.89 Other specified disorders of teeth and supporting structures; R11.0 Nausea; G47.33 Obstructive sleep apnea (adult) (pediatric); E78.5 Hyperlipidemia, unspecified; I10 Essential (primary) hypertension; M79.7 Fibromyalgia
CPT/HCPCS: 99283

== ENCOUNTER 2025-03-12 14:00 | Outpatient (RCR) | payer MEDICARE, SELFPAY ==
--- NOTE | 2025-02-26 15:56 | HMH.PTOPEV ---
PT Outpatient Evaluation Rehab PT Outpatient Evaluation Start: 02/26/25 14:50 Freq: Status: Active Protocol: Document 02/26/25 14:52 [email or web address] (Rec: 02/26/25 15:55 PERICO [id number]) E-signed By Nicole Hogue, PT Outpatient Therapy Subjective History Subjective History Pt is a 75 y/o female who reports to the initial PT evaluation for bilateral knee osteoarthritis. Pt reports chronic bilateral R>L knee pain for over a year. Pt reports pain is aggravated by going up stairs (12 to get to her bedroom/bathroom), walking on level and unlevel ground, prolonged standing, getting up /down from a low seat, and squatting. Pt reports noted non-painful crepitus of the R knee, denies instability or swelling. Pt reports she has had multiple injections in both knees that improves symptoms for ~1.5 months. Pt reports most recent injections 3 months ago. Pt reports she has been applying ice which seems to assist with her symptoms as well. Pt had a R knee radiograph on 09/20/24 with impression of Moderate and severe degenerative change , most severe in the patellofemoral compartment. Loose bodies are present and the need joint. Pt also had L knee radiographs performed on 09/20/24 with impression of Moderate to severe degenerative change is present , most severe in the patellofemoral compartment. Medical History: Hypertension, Hyperlipidemia, Fibromyalgia Gait: lack of terminal knee extension and heel strike on RLE keeping knee bent throughout gait cycle New diagnosis of cancer in past 12 No months? Chief Complaint Pain Symptom Type Ache,Sharp,Dull Symptoms Relieved By Rest/Positioning,Ice Current Functional Limitations Housework,Standing,Squatting, Walking,Stairs Level of pain today (0-10) 4 Pain scale - at its best (0-10) 1 Pain scale - at its worst (0-10) 10 Hip/Knee Eval Gait Observation General Gait Pattern Observation Antalgic Gait Assistive Device Assistive Devices None / NA Palpation Tenderness left Knee Palpation Overall Comment no TTP noted right Knee Palpation Finding Tenderness Knee Palpation Overall Comment vastus lateralis, lateral femoral condyle, patella 2/4 TTP MMT left Hip Flexion Strength Grade 4 Good Hip Abduction Strength Grade 4 Good Hip Adduction Strength Grade 4 Good Hip Extension Strength Grade 4 Good Knee Extension Strength Grade 4 Good Knee Flexion Strength Grade 4 Good right Hip Flexion Strength Grade 4 Good Hip Abduction Strength Grade 4- Good- Hip Adduction Strength Grade 4 Good Hip Extension Strength Grade 4- Good- Knee Extension Strength Grade 4 Good Knee Flexion Strength Grade 4- Good- ROM left Knee Extension Active Range of Motion ( 0 degrees) Knee Flexion Active Range of Motion ( 120 degrees) right Knee Extension Active Range of Motion ( 114 degrees) Knee Flexion Active Range of Motion ( 14 degrees) Effusion joint effusion knee exam standard bilateral Mid - Patellar Circumerential Measure ( 37.5 cm) Lower Extremity Functional Index Activities Today, do you or would you have any difficulty at all with: a.Any of your usual work, housework or Quite a bit of difficulty school activities b. Your usual hobbies, recreational or Quite a bit of difficulty sporting activities c. Getting into or out of the bath Moderate difficulty d. Walking between rooms Quite a bit of difficulty e. Putting on your shoes or socks A little bit of difficulty f. Squatting Extreme difficulty or unable to perform activity g. Lifting an object, like a bag of Quite a bit of difficulty groceries from the floor h. Performing light activities around Quite a bit of difficulty your home i. Performing heavy activities around Quite a bit of difficulty your home j. Getting into or out of a car Moderate difficulty k. Walking 2 blocks Quite a bit of difficulty l. Walking a mile Quite a bit of difficulty m. Going up or down 10 stairs (about 1 Quite a bit of difficulty flight of stairs) n. Standing for 1 hour Quite a bit of difficulty o. Sitting for 1 hour Moderate difficulty p. Running on even ground Extreme difficulty or unable to perform activity q. Running on uneven ground Extreme difficulty or unable to perform activity r. Making sharp turns while running fast Extreme difficulty or unable to perform activity s. Hopping Extreme difficulty or unable to perform activity t. Rolling over in bed Moderate difficulty LEFI Score Lower Extremity Functional Index Score 21 Outpatient Therapy Assessment Impairments Problems/Impairmments Palpation Tenderness,Impaired Range of Motion,Impaired Strength,Impaired Walking, Impaired Standing,Impaired Household Care,Impaired Stair Climbing,Impaired Incline Stepping,Impaired Stepping on Uneven Surface,Impaired Squatting,Subjective C/O Pain, Impaired Self Care/Self Management Prognosis Rehab Potential Good Clinical Impression Consistent with Diagnosis Yes Short Term Goals Number of Weeks 3 Increase Range of Motion Yes: Improve R knee AROM extension to 10 or less to assist with gait mechanics Improve LEFI Score Yes: Improve score to 31/80 to improve overall QOL Decrease Subjective C/O Pain Yes: Improve pain at worst to 8/10 to improve overall QOL Improve Self Care/Self Management Yes Patient to be Ind w/ HEP Yes Mortgage Sales Manager Goals Number of Weeks 6 Increase Range of Motion Yes: Improve R knee AROM to 0- 120 Increase Strength Yes: Improve BLE MMT to 4-4+/5 grossly to assist with function Improve Gait Pattern without Assistive Yes: proper gait mechanics Device with LRD to decrease fall risk Improve Ability to Climb Stairs Yes: 1 flight with HR with pain 6/10 or less to assist with household navigation Improve LEFI Score Yes: Improve score to 41/80 to improve overall QOL Decrease Subjective C/O Pain Yes: Improve pain at worst to 6/10 to improve overall QOL Outpatient Therapy Plan of Care Treatment Plan May Include Therapeutic Exercise Including Home Yes Exercise Program Manual Therapy Techniques Yes Neuromuscular Re-education Yes Therapeutic Activities to Return to Yes Previous Functional/Work Level Gait Training Yes ADL/Self Care Education Yes Dry Needling Yes Thermal Modalities Yes Electrical Stimulation Yes Ultrasound/Phonophoresis Yes Iontophoresis Yes Orthotics/Bracing/Splinting Yes Vasopneumatic Compression Pump Yes Massage Yes Manual Lymphatic Drainage Yes Group Therapy for Medicare Yes Eval/Re-Eval Yes Aquatic Therapy Yes Frequency Times per week 2 Duration Number of Weeks 4-6 Addendums This patient is a candidate for social No or vocational rehab? Patient/Guardian verbally acknowledges Yes understanding of treatment program and consents to further treatment? Patient/Guardian verbally acknowledges Yes understanding of diagnosis, prognosis and goals for treatment? Eval Complexity PT Charges 12469 - Low Complexity Shoulder/Elbow Eval Shoulder Objective Measurements Elbow Objective Measurements PHYSICIAN CERTIFICATION: I certify the specified therapy services for Katie Garciazajael Sheldon are required, authorized, and reviewed every 30 days.
== END 2025-03-12 23:59 | disposition home or self-care (01) ==
LOC: PT 14:00
PROVIDERS: Visit Provider Physician Assistant
DX: M17.0 Bilateral primary osteoarthritis of knee (principal)
CPT/HCPCS: 97014; 97110; 97163; 97530; G0283

== ENCOUNTER 2025-04-09 09:51 | Outpatient (CLI) | payer MEDICARE, SELFPAY ==
[2025-04-09 16:33] LABS: Basophils % 0.4 % (0.1-2.0); Eosinophils # 0.1 Kmm3 (0.0-0.4); Eosinophils % 1.2 % (0.1-12.0); Hematocrit 37.6 % (37.0-47.0); Hemoglobin 12.2 g/dL (12.2-16.2); Immature Granulocytes # 0.01 10^3uL; Immature Granulocytes % 0.1 %; Lymphocytes # 1.6 K/mm3 (0.7-4.5); Lymphocytes % 22.4 % (10-50); Mean Corpuscular HGB Conc 32.4 g/dL (31.8-35.4); Mean Corpuscular Hemoglobin 30.3 pg (27.0-31.2); Mean Corpuscular Volume 93.5 fl (81-99); Mean Platelet Volume 11.4 fl (7.4-10.4); Monocytes # 0.7 K/mm3 (0.1-1.0); Monocytes % 9.1 % (1.7-9.3); Neutrophils # 4.8 K/mm3 (1.8-7.8); Neutrophils % 66.8 % (37.0-80.0); Nucleated Red Blood Cells # 0 10^3/uL; Nucleated Red Blood Cells % 0 %; Platelet Count 242 K/mm3 (142-424); Red Blood Count 4.02 M/mm3 (4.20-5.40); Red Cell Distribution Width 12.7 % (11.5-17.5); Red Cell Distribution Width-SD 43.7 fL; White Blood Count 7.2 K/mm3 (4.8-10.8)
[2025-04-09 17:00] LABS: Alanine Aminotransferase 17 U/L (12-78); Albumin/Globulin Ratio 1.5 (1.1-1.8); Alkaline Phosphatase 65 U/L (38-126); Anion Gap 9.8 mEq/L (5-15); Aspartate Amino Transferase 18 U/L (14-36); Bilirubin,Total 0.5 mg/dl (0.2-1.3); Blood Urea Nitrogen 17 mg/dl (7-17); Calcium 9.3 mg/dl (8.4-10.2); Carbon Dioxide 29 mmol/L (22.0-30.0); Chloride 104 mmol/L (98-107); Estimated Glomerular Filt Rate 82 ml/min (>60); GFR (African American) 99 ML/MIN (>60); Globulin 2.6 g/dL (1.3-3.2); Glucose 83 mg/dl (74-100); Potassium 3.8 mmoL/L (3.5-5.1); Sodium 139 mmol/L (136-145); Total Protein,Serum 6.6 g/dl (6.3-8.2)
== END 2025-04-09 23:59 | disposition home or self-care (01) ==
LOC: LAB.DROPOF 04-11 09:51
PROVIDERS: PCP Internal Medicine; Visit Provider Internal Medicine
DX: R53.83 Other fatigue (principal)
CPT/HCPCS: 80053; 85025

== ENCOUNTER 2025-04-11 16:00 | Outpatient (RCR) | payer MEDICARE, SELFPAY ==
--- NOTE | 2025-03-29 09:57 | HMH.RHREAS ---
Rehab Reassessment Rehab OP Re-assessment Start: 03/19/25 13:58 Freq: Status: Active Protocol: Document 03/29/25 08:57 PERICO (Rec: 03/29/25 09:56 PERICO [id number]) E-signed By Nicole Hogue PT Lower Extremity Functional Index Activities Today, do you or would you have any difficulty at all with: a.Any of your usual work, housework or A little bit of difficulty school activities b. Your usual hobbies, recreational or Moderate difficulty sporting activities c. Getting into or out of the bath No difficulty d. Walking between rooms No difficulty e. Putting on your shoes or socks No difficulty f. Squatting Extreme difficulty or unable to perform activity g. Lifting an object, like a bag of No difficulty groceries from the floor h. Performing light activities around No difficulty your home i. Performing heavy activities around Moderate difficulty your home j. Getting into or out of a car No difficulty k. Walking 2 blocks Moderate difficulty l. Walking a mile Quite a bit of difficulty m. Going up or down 10 stairs (about 1 Moderate difficulty flight of stairs) n. Standing for 1 hour Moderate difficulty o. Sitting for 1 hour Moderate difficulty p. Running on even ground Extreme difficulty or unable to perform activity q. Running on uneven ground Extreme difficulty or unable to perform activity r. Making sharp turns while running fast Extreme difficulty or unable to perform activity s. Hopping Extreme difficulty or unable to perform activity t. Rolling over in bed No difficulty LEFI Score Lower Extremity Functional Index Score 44 Rehab Re-assessment Subjective Subjective Pt reports she feels 60% improved since starting PT. Pt reports R knee pain at worst as 4/10 on VAS within the last week. Pt states she has not experienced any L knee pain recently. Pt reports she received injections in both knees on Tuesday with improvement in symptoms. Pt reports pain continues to be aggravated by traversing stairs, prolonged walking >1 block, prolonged standing >30 minutes. Pt reports intermittent compliance with HEP without issues. Objective Objective Notes Palpation: no TTP noted of L knee, 1/4 TTP noted of R medial tibiofemoral joint line Edema: 37.5 cm tibiofemoral joint line B RLE MMT: 4/5 grossly LLE MMT: 5/5 grossly R knee AROM: 0-8-125 Gait: lack of terminal knee extension Assessment Progress Assessment Progressing as Expected Assessment Notes Pt has attended 7 PT treatment sessions consisting of aerobic exercise, knee ROM, hip/thigh strengthening, LE stretching, modalities and HEP with good tolerance. Pt demonstrated improved subjective report of pain, LEFS score, MMT and R knee AROM this date compared to the initial evaluation. Pt continues to demonstrate R knee AROM deficits with inability to reach full extension altering gait mechanics. Overall, the pt would continue to benefit from skilled PT to further improved ROM, strength and functional activity tolerance to improve overall QOL. Patient goals met ST/5 Goals Not Met LTG Revised Goals n/a Plan Plan Continue POC. Focus therapy treatment on R knee. Frequency of Therapy 2x/week Duration of therapy 2-4 more weeks Time and Billing Re-Eval Time 11 Re-Eval Billing Units 0 Charge for PT reassessment? No Charge for OT reassessment? No PHYSICIAN CERTIFICATION: I certify the specified therapy services for Katie Ila Moore are required, authorized, and reviewed every 30 days.
== END 2025-04-11 23:59 | disposition home or self-care (01) ==
LOC: PT 16:00
PROVIDERS: Visit Provider Physician Assistant
DX: M17.0 Bilateral primary osteoarthritis of knee (principal)
CPT/HCPCS: 97014; 97110; 97530; G0283

== ENCOUNTER 2025-05-01 15:00 | Outpatient (RCR) | payer MEDICARE, SELFPAY ==
--- NOTE | 2025-04-29 15:44 | HMH.RHREAS ---
Rehab Reassessment Rehab OP Re-assessment Start: 04/24/25 13:39 Freq: Status: Active Protocol: Document 04/29/25 15:13 [email or web address] (Rec: 04/29/25 15:43 PERICO [id number]) E-signed By Nicole Hogue PT Lower Extremity Functional Index Activities Today, do you or would you have any difficulty at all with: a.Any of your usual No difficulty work, housework or school activities b. Your usual No difficulty hobbies, recreational or sporting activities c. Getting into or No difficulty out of the bath d. Walking between No difficulty rooms e. Putting on your No difficulty shoes or socks f. Squatting Quite a bit of difficulty g. Lifting an object No difficulty , like a bag of groceries from the floor h. Performing light No difficulty activities around your home i. Performing heavy No difficulty activities around your home j. Getting into or A little bit of difficulty out of a car k. Walking 2 blocks A little bit of difficulty l. Walking a mile Moderate difficulty m. Going up or down No difficulty 10 stairs (about 1 flight of stairs) n. Standing for 1 Moderate difficulty hour o. Sitting for 1 Moderate difficulty hour p. Running on even Extreme difficulty or unable to perform activity ground q. Running on uneven Extreme difficulty or unable to perform activity ground r. Making sharp Moderate difficulty turns while running fast s. Hopping Extreme difficulty or unable to perform activity t. Rolling over in Moderate difficulty bed LEFI Score Lower Extremity 53 Functional Index Score Rehab Re-assessment Subjective Subjective Pt reports she feels 80% improved since starting PT. Pt reports her knees have been doing better overall with pain at worst rated 3/10 on VAS. Pt states she is compliant with her HEP and able to perform all functional activities without issue. Objective Objective Notes Palpation: / TTP noted of R>L medial tibiofemoral joint line BLE MMT: 5/5 grossly R knee AROM: 0-5-125 Assessment Progress Assessment Progressing as Expected Assessment Notes Pt has attended 11 PT treatment sessions consisting of aerobic exercise, knee ROM, hip/thigh strengthening, LE stretching, modalities and HEP with good tolerance. Pt demonstrated continued improvements in subjective report of pain, lower extremity strength, LEFS score and functional activity tolerance. Overall, the pt met most PT goals and is appropriate to discharge to independent HEP at this time. Patient goals met LT/6 Goals Not Met R knee extension AROM Revised Goals n/a Plan Plan Discharge to independent HEP Time and Billing Re-Eval Time 11 Re-Eval Billing 0 Units Charge for PT No reassessment? Charge for OT No reassessment? PHYSICIAN CERTIFICATION: I certify the specified therapy services for Katie Sheldon are required, authorized, and reviewed every 30 days.
== END 2025-05-01 23:59 | disposition home or self-care (01) ==
LOC: PT 15:00
PROVIDERS: Visit Provider Internal Medicine
DX: M17.0 Bilateral primary osteoarthritis of knee (principal)
CPT/HCPCS: 97014; 97110; 97530; G0283

== ENCOUNTER 2025-10-27 20:22 | Emergency (ER) | payer MEDICARE, OTHER, SELFPAY ==
--- NOTE | 2025-10-27 20:48 | ECG_ITS ---
APPROVED REPORT Exam: Resting ECG HR:78 bpm ECG Measurements Heart Rate 78 AXES CA 149 P 150 QRSd 68 QRS 127 QT 376 T 89 QTc 409 Conclusion ECTOPIC ATRIAL RHYTHM POSSIBLE RIGHT VENTRICULAR HYPERTROPHY [SOME/ALL OF: PROMINENT R IN V1, LATE TRANSITION, RAD, TONYA, SSS] ABNORMAL ECG UNCONFIRMED REPORT Electronically signed by : ANH SANDOVAL, 10/28/2025 00:17:20
--- OUTSIDE RECORDS SUMMARY | 2025-10-27 20:50 | XMS_ITS | Encounter Summary ---
Author Organization Healthcare Address [address] [place] [address] Care Team Providers Care Coronary Clinical Specialist Name Role Phone Unavailable Primary Care Provider Unavailabl e Encounter Details Date Type Department Care Team (Latest Contact Info) Description 1950 - 1950 11:59 PM EST Hospital Encounter [facility] [address] [place] [id number] Encounter for other specified special examinations Discharge Disposition: Home or Self Care Social History Tobacco Use Types Packs/Day Years Used Date Smoking Tobacco: Never Assessed Comments Unknown Sex and Gender Information Value Date Recorded Sex Assigned at Female 09/12/2024 2:04 PM EDT Legal Sex Female 7:42 PM EDT Gender Identity Female 09/12/2024 2:04 PM EDT Sexual Orientation Not on file COVID-19 Exposure Response Date Recorded In the last month, have you been in contact with someone who was confirmed or suspected to have Coronavirus / COVID-19? No / Unsure 07/24/2021 2:43 PM EDT documented as of this encounter Plan of Treatment Not on file documented as of this encounter Procedures Procedure Name Priority Date/Time Associated Diagnosis Comments MR LUMBAR SPINE WO IV CONTRAST Routine 1950 12:00 AM EST Encounter for other specified special examinations documented in this encounter Results * MR Lumbar Spine wo IV Contrast (1950 12:00 AM EST) Narrative IMAGING - 07/24/2021 7:35 PM EDT This study was performed at an outside facility and has been loaded into the PACS system for reference only. This order has been auto-finalized and does not contain a result. us Unknown Unknown IMG MRI PROCEDURES Final Result IMAGING documented in this encounter Visit Diagnoses Diagnosis Encounter for other specified special examinations documented in this encounter
--- OUTSIDE RECORDS SUMMARY | 2025-10-27 20:50 | XMS_ITS | Clinical Summary ---
Author Organization [facility] Address [address] [place] [address] Care Team Providers Care Bearing Inspector Name Role Phone José Miguel Lyons MD Primary Care Provider [phone] Ming Hernandez MD Unavailable [phone] Allergies Active Allergy Reactions Criticality Noted Date Comments Sulfamethoxazole-Trimethopri m Hives Medium 07/24/2021 Ketamine Hallucinations Medium 09/12/2024 [place] like in another world - does not want to get again Lisinopril Anaphylaxis High 07/17/2024 Sulfamethoxazole Hives High 07/17/2024 Trimethoprim Hives High 07/17/2024 Medications amLODIPine (Norvasc) 5 MG tablet Take 1 tablet (5 mg) by mouth every night. 06/30/20 21 Active atorvastatin (Lipitor) 10 MG tablet Take 1 tablet (10 mg) by mouth every night. 07/21/20 21 Active HYDROcodone-acetam inophen ([place]) 10-325 MG tablet Take 1 tablet (10 mg of hydrocodone) by mouth 3 (three) times a day. 07/24/20 21 Active GNP Vitamin D3 Extra Strength 25 MCG (1000 UT) tablet Take 1 tablet (1,000 Units) by mouth every night. 08/17/20 24 Active oxyCODONE (Roxicodone) 5 MG immediate release tablet Take 1 tablet (5 mg) by mouth every 6 (six) hours if needed for severe pain. 30 tablet 09/13/20 24 Active Additional Information Patient not taking.Reported on 01/22/2025 naloxone (Narcan) 4 mg/0.1 mL nasal spray 1. Give 1 spray in nostril for no/slow breathing or cannot wake after opioid use 2. Call 911 3. Repeat in other nostril if symptoms continue 1 each 09/13/20 Active acetaminophen (Tylenol Extra Strength) 500 MG tablet Take 2 tablets (1,000 mg) by mouth every 8 (eight) hours. 100 tablet 09/13/20 Active docusate sodium (Colace) 250 MG capsule Take 1 capsule (250 mg) by mouth 1 (one) time each day. 10 capsule 09/13/20 Active ondansetron ODT (Zofran-ODT) 4 MG disintegrating tablet Take 1 tablet (4 mg) by mouth every 8 (eight) hours if needed for nausea or vomiting. 20 tablet 09/13/20 Active Active Problems Problem Noted Date Diagnosed Date Forearm fracture, left, closed, initial encounte r 09/12/2024 Left arm pain 09/06/2024 Neurogenic pain, leg 04/01/2017 Status post lumbar spinal fusion 02/13/2016 Subluxation of lumbar vertebra 01/21/2016 Acquired spondylolisthesis 01/06/2016 Hip pain 01/06/2016 Leg pain 01/06/2016 Joint pain 12/19/2015 Spinal stenosis 12/19/2015 Family History Medical History Relation Name Comments Cancer Father Back pain/problems Mother Cancer Mother Other cancer Other 1 Osteoporosis Other 2 Relation Name Status Comments Father Mother Other 1 Other 2 Social History Tobacco Use Types Packs/Day Years Used Date Smoking Tobacco: Never Passive Smoke Exposure: Never Smokeless Tobacco: Never Tobacco Cessation:Counseling Given: Not Answered Alcohol Use Standard Drinks/Week Comments No 0 (1 standard drink = 0.6 oz pur e alcohol) PHQ-2 Answer Date Recorded Patient Health Questionnaire-2 Score 0 10/23/2024 PHQ-9 Answer Date Recorded Patient Health Questionnaire-9 Score 0 10/23/2024 Comments No Sex and Gender Information Value Date Recorded Sex Assigned at Female 09/12/2024 2:04 PM EDT Legal Sex Female 7:42 PM EDT Gender Identity Female 09/12/2024 2:04 PM EDT Sexual Orientation Not on file Last Filed Vital Signs Vital Sign Reading Time Taken Comments Blood Pressure 130/84 01/22/2025 9:02 AM EDT Pulse 70 01/22/2025 9:02 AM EDT Temperature 36.5 C (97.7 F) 09/25/2024 11:02 AM EST Respiratory Rate 17 09/13/2024 11:00 AM EDT Oxygen Saturation 100% 01/22/2025 9:02 AM EDT Inhaled Oxygen Concentration - - Weight 79.8 kg (176 lb) 01/22/2025 9:02 AM EDT Height 167.6 cm (5' 6 ) 01/22/2025 9:02 AM EDT Body Mass Index 28.41 01/22/2025 9:02 AM EDT Plan of Treatment Health Maintenance Due Date Last Done Comments [facility]-Bone Density Scan 1950 [facility]-Hepatitis C Screening 1950 [facility]-Medicare Annual Wellness (AWV) 1950 [facility]-Infant/Child/Adol SDOH Screenings 1950 [facility]- SDOH Screenings 1969 [facility]-Adult SDOH Screenings 1969 [facility]-Pneumococcal Vaccine: 50+ Years (1 of 2 - PCV) 1970 CT Colonography 01/26/1996 Colonoscopy 01/26/1996 FIT 01/26/1996 FOBT 01/26/1996 Sigmoidoscopy 01/26/1996 [facility]-DTaP,Tdap,and Td Vaccines (1 - Tdap) 01/16/1997 01/15/1997 [facility]-Breast Cancer Screening 2001 [facility]-Zoster Vaccines (1 of 2) 2001 [id number] Vaccine (1 - 2024- season) 2025 [facility]-Influenza Vaccine (#1) 2025 [facility]-Depression Screening 10/23/2025 10/23/2024, 10/14 FIT-DNA 01/18/2026 01/18/2023 [facility]-Colorectal Cancer Screening 01/18/2026 [facility]-RSV Vaccine: 60+ Years or (1 - 1-dose 75+ series) 2026 [facility]-Obesity Intervention Completed 025, 10/23/2024, 09/25/2024, Additional history exists HPV Vaccines (No Doses Required) Completed [facility]-HIB Vaccines Aged Out No longer e ligible based on patient's age to complete this topic [facility]-Hepatitis A Vaccines Aged Out No longer eligible based on patient's age to complete this topic [facility]-IPV Vaccines Aged Out No longer e ligible based on patient's age to complete this topic [facility]-Rotavirus Vaccines Aged Out No lo nger eligible based on patient's age to complete this topic Goals Goal Patient Goal Type Associated Problems Recent Progress Patient-Stated? Author Patient will verbalize understanding of orthotic wear , care and precautions. Occupational Therapy No [employer], [employer] Implanted Type Area Personal Financial Counselor Device Identifier Shelf Expiration Date Model / Serial / Lot Alex Alex Right: First Toe Screw Screw N/A: Back Screw 2.7mm#Locking T10 Full Thread L18mm - Sn/A - [id number] Implanted:Qty: 1 on 09/12/2024 by Ondina Manuel MD at [facility] Screw Left: Arm [employer] ([facility])-[id number] / N/A / Screw 2.7mm#Locking T10 Full Thread L12mm - Sn/A - [id number] Implanted:Qty: 2 on 09/12/2024 by Ondina Manuel MD at [facility] Left: Arm [employer] ([facility])-[id number] 68 [id number] / N/A / Screw 3.5mm Bone T10 Full Thread L16mm - Sn/A - [id number] Implanted:Qty: 1 on 09/12/2024 by Ondina Manuel MD at [facility] Left: Arm [employer] ([facility])-[id number] 68 [id number] / N/A / Screw 2.7mm Bone T10 Full Thread L18mm - Sn/A - [id number] Implanted:Qty: 1 on 09/12/2024 by Ondina Manuel MD at [facility] Left: Arm [employer] ([facility])-[id number] 68 [id number] / N/A / Plate Compression Straight Narrow 90mm 7hole - Sn/A - [id number] Implanted:Qty: 1 on 09/12/2024 by Ondina Manuel MD at [facility] Left: Arm [employer] ([facility])-[id number] 68 [id number] / N/A / Graft Vivigen 5cc - [id number] - [id number] Implanted:Qty: 1 on 09/12/2024 by Ondina Manuel MD at [facility] Left: [id number] 07/24/2025 BL-1500-00 2-4PK / [id number] / [id number] Screw 2.7mm#Locking T10 Full Thread L14mm - Sn/A - [id number] Implanted:Qty: 1 on 09/12/2024 by Ondina Manuel MD at [facility] Left: Arm [employer] ([facility])-[id number] 68 [id number] / N/A / Plate Compression Crvd Broad 115mm 9hole - Sn/A - [id number] Implanted:Qty: 1 on 09/12/2024 by Ondina Manuel MD at [facility] Left: Arm [employer] ([facility])-[id number] 68 [id number] / N/A / Screw 2.7mm Bone T10 Full Thread L14mm - Sn/A - [id number] Implanted:Qty: 2 on 09/12/2024 by Ondina Manuel MD at [facility] Left: Arm [employer] ([facility])-[id number] 68 [id number] / N/A / Screw 3.5mm Bone T10 Full Thread L14mm - Sn/A - [id number] Implanted:Qty: 5 on 09/12/2024 by Ondina Manuel MD at [facility] Left: Arm [employer] ([facility])-[id number] 68 [id number] / N/A / Screw 3.5mm Bone T10 Full Thread L12mm - Sn/A - [id number] Implanted:Qty: 1 on 09/12/2024 by Ondina Manuel MD at [facility] Left: Arm [employer] ([facility])-[id number] 68 [id number] / N/A / Screw 2.7mm Bone T10 Full Thread L16mm - Sn/A - [id number] Implanted:Qty: 1 on 09/12/2024 by Ondina Manuel MD at [facility] Left: Arm [employer] ([employer])-[id number] 68 [id number] / N/A / Screw 2.7mm Bone T10 Full Thread L12mm - Sn/A - [id number] Implanted:Qty: 1 on 09/12/2024 by Ondina Manuel MD at [facility] Left: Arm [employer] [facility][id number] 68 [id number] / N/A / Insurance [employer] MEDICAID [facility] MEDICARE Advance Directives * Full Code (Latest Code Status on File) Date Activated Date Inactivated Comments 09/12/2024 8:25 PM 09/13/2024 4:47 PM Question Answer Comments Patient has decision-making capacity? Yes Care Teams Bearing Inspector Relationship Specialty Start Date End Date José Miguel Lyons MD [address] [place] [address] PCP - General 03/27/21 Ming Hernandez MD [address] [phone] Surgeon Neurosurgery 08/26/21
--- OUTSIDE RECORDS SUMMARY | 2025-10-27 20:50 | XMS_ITS | Encounter Summary ---
Author Organization [facility] Address [address] [place] [address] Care Team Providers Care Imagery Intelligence Name Role Phone José Miguel Lyons MD Primary Care Provider [phone] Ming Hernandez MD Unavailable [phone] Reason for Referral * Consultation (Routine) - Closed Specialty Diagnoses / Procedures Referred By Contac t Referred To Contact Neurosurgery Diagnoses Lumbar spondylosis José Miguel Lyons MD [address] [place] [address] Phone: tel: fax: Referral ID Status Reason Start Date Expiration Date V isits Requested Visits Authorized [id number] Closed Specialty Services Required 07/15/2021 01/11/2022 1 1 Encounter Details Date Type Department Care Team (Late st Contact Info) Description 07/15/2021 Community [facility] [address] [place] [address] José Miguel Lyons MD [address] [place], [place] [id number] Lumbar spondylosis (Primary Dx) Social History Tobacco Use Types Packs/Day Years Used Date Smoking Tobacco: Former Alcohol Use Standard Drinks/Week Comments No 0 (1 standard drink = 0.6 oz pur e alcohol) Comments Unknown Sex and Gender Information Value Date Recorded Sex Assigned at Female 09/12/2024 2:04 PM EDT Legal Sex Female 7:42 PM EDT Gender Identity Female 09/12/2024 2:04 PM EDT Sexual Orientation Not on file documented as of this encounter Plan of Treatment Scheduled Referrals Name Type Priority Associated Diagnoses Order Schedule Ambulatory Referral to Neurosurgery Outpatient Referral Routine Lumbar spondylosis 1 Occurrences starting 07/15/2021 until 01/12/2022 documented as of this encounter Visit Diagnoses Diagnosis Lumbar spondylosis- Primary Lumbosacral spondylosis without myelopathy documented in this encounter Care Teams Imagery Intelligence Relationship Specialty Start Date End Date José Miguel Lyons MD [address] [place] [address] PCP - General 03/27/21 Ming Hernandez MD [address] [facility] [address] [place] [address] Surgeon Neurosurgery 08/26/21 documented as of this encounter
--- NOTE | 2025-10-27 20:55 | XR_ITS ---
PROCEDURE INFORMATION: Exam: XR Left Shoulder Exam date and time: 10/27/2025 9:06 PM Age: 75 years old Clinical indication: Pain; Shoulder; Left; Additional info: Left shoulder pain TECHNIQUE: Imaging protocol: Radiologic exam of the left shoulder. Views: 2 or more views. Total images: 3 COMPARISON: CR XR CHEST 2V 01/30/2025 11:52 AM FINDINGS: Bones/joints: Osteopenia. Severe degenerative change of the glenohumeral joint with large enthesophytes caudal margin of the humeral head. Mild degenerative change AC joint. Maintain subacromial distance. Benign-appearing area of sclerosis proximal humeral shaft. Soft tissues: Unremarkable soft tissues. IMPRESSION: 1. Severe degenerative change of the glenohumeral joint. 2. No acute osseous abnormality.
--- NOTE | 2025-10-27 20:55 | XR_ITS ---
PROCEDURE INFORMATION: Exam: XR Chest Exam date and time: 10/27/2025 9:08 PM Age: 75 years old Clinical indication: Other: Left shoulder pain TECHNIQUE: Imaging protocol: Radiologic exam of the chest. Views: 2 views. Total images: 2 COMPARISON: CR XR CHEST 2V 01/30/2025 11:52 AM FINDINGS: Lungs: Fine linear right basilar scarring. Calcified left upper lobe granuloma. No acute infiltrate, vascular congestion or pulmonary edema. No airspace consolidation. Pleural spaces: Unremarkable. No pleural effusion. No pneumothorax. Heart/Mediastinum: Prominent right epicardial fat pad. Normal heart size. No mediastinal widening or hilar enlargement. Bones/joints: Increased thoracic kyphosis. Osteopenia. Moderate degenerative changes thoracic spine. Left shoulder findings described separately. IMPRESSION: 1. No radiographically acute cardiopulmonary process. 2. Chronic findings.
[2025-10-27 21:00] VITALS: BP 134/78; PULSE 73; RESP 20; TEMP 36.9; O2SAT 100; BMI 32.3
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
[2025-10-27 22:13] LABS: Hematocrit 38.4 % (37.0-47.0); Hemoglobin 12.2 g/dL (12.2-16.2); Immature Granulocytes % 0.2 %; Mean Corpuscular HGB Conc 31.8 g/dL (31.8-35.4); Mean Corpuscular Hemoglobin 30.0 pg (27.0-31.2); Mean Corpuscular Volume 94.6 fl (81-99); Nucleated Red Blood Cells % 0 %; Platelet Count 221 K/mm3 (142-424); Red Blood Count 4.06 M/mm3 (4.20-5.40); Red Cell Distribution Width-SD 42.9 fL; White Blood Count 8.3 K/mm3 (4.8-10.8)
[2025-10-27 22:45] LABS: Albumin Level 4.2 g/dl (3.5-5.0); Chloride 106 mmol/L (98-107); Sodium 138 mmol/L (136-145)
[2025-10-27 22:46] LABS: Potassium 3.7 mmoL/L (3.5-5.1)
[2025-10-27 22:48] LABS: Alanine Aminotransferase 19 U/L (12-78); Albumin/Globulin Ratio 1.4 (1.1-1.8); Alkaline Phosphatase 73 U/L (38-126); Anion Gap 6.7 mEq/L (5-15); Aspartate Amino Transferase 24 U/L (14-36); Bilirubin,Total 0.5 mg/dl (0.2-1.3); Blood Urea Nitrogen 16 mg/dl (7-17); Carbon Dioxide 29 mmol/L (22.0-30.0); Creatinine Clearance Estimated 71 mL/min (50-200); Creatinine,Serum 0.80 mg/dl (0.52-1.04); Estimated Glomerular Filt Rate 70 ml/min (>60); GFR (African American) 85 ML/MIN (>60); Globulin 3.1 g/dL (1.3-3.2); Lipase 49 U/L (23-300); Total Protein,Serum 7.3 g/dl (6.3-8.2)
[2025-10-27 22:49] LABS: Calcium 9.1 mg/dl (8.4-10.2); Glucose 107 mg/dl (74-100)
[2025-10-27 23:00] LABS: Troponin I < 0.01 ng/ml (0.00-0.034)
[2025-10-27 23:20] VITALS: BP 140/69; PULSE 83; RESP 18; TEMP 36.8; O2SAT 98
== END 2025-10-27 23:27 | disposition home or self-care (01) ==
PROVIDERS: Physician Assistant; Emergency Provider Student in an Organized Health Care Education/Training Program; PCP Internal Medicine
DX: M25.512 Pain in left shoulder (principal)
CPT/HCPCS: 71046; 73030; 80053; 83690; 84484; 85025; 93005; 99283; 99284